=== PATIENT | male | born 1950 | race Caucasian/White ===

== ENCOUNTER 2019-04-08 10:00 | Outpatient (CLI) | payer MEDICARE, OTHER, BC, SELFPAY ==
[2019-04-08] MEDS: octreotide LAR depot 20 mg Kit 40 MG IM (15:04)
== END 2019-04-08 10:01 | disposition home or self-care (01) ==
LOC: ONCMED 10:10
PROVIDERS: Family Provider Family Medicine; PCP Family Medicine; Visit Provider Nurse Practitioner
DX: C7A.019 Malignant carcinoid tumor of the small intestine, unspecified portion (principal); C7B.02 Secondary carcinoid tumors of liver
CPT/HCPCS: 96372; J2353

== ENCOUNTER 2019-05-09 10:13 | Outpatient (CLI) | payer MEDICARE, OTHER, BC, SELFPAY ==
[2019-05-09] MEDS: octreotide LAR depot 20 mg Kit 40 MG IM (11:03)
--- NOTE | 2019-05-09 18:26 | ONC FU_ITS ---
Dr. Guido Patient Follow-Up Note Patient: Chilo Pacheco Unit #: [id number]: 1950 Dicatated By: Yifan Guido M.D.Date of Visit:May 09, 2019 Onc Med Follow-up/Prog Note Chief Complaint: Metastatic carcinoid. History of Present Illness: This is a 68 year-old man with metastatic carcinoid. According to the available records, he was admitted to the hospital in December 2008 with atrial fibrillation. At that time he was having abdominal pain and was found on CT scan to have multiple serosal and omental lesions. Ultrasound-guided biopsy was consistent with a carcinoid tumor. He subsequently underwent an exploratory laparotomy and debulking procedure. The primary tumor apparently was in the small intestine. The procedure included omentectomy, appendectomy, and cholecystectomy. According to the patient, metastatic lesions also were removed from the liver, kidney, and lung. He subsequently had chronic diarrhea, and he began treatment with monthly injections of Sandostatin LAR. His clinical course subsequent to his debulking surgery was complicated by an episode of bowel obstruction in 2011. This apparently was due to sigmoid diverticulitis and not to his malignancy. At that time he underwent sigmoid resection with colostomy placement, but the ostomy was later reversed. In 2012 he underwent radical prostatectomy for prostate cancer. I had seen him initially in May 2014. He continued on monthly injections of Sandostatin LAR. During follow-up, I also added short-acting octreotide injections to use as needed as well as tincture of opium to use as needed for the diarrhea. Beginning in August 2015 the Sandostatin LAR dosage was increased to 40 mg. His laboratory studies from 03/31/2016 showed evidence of iron deficiency with transferrin saturation 10% and serum ferritin 12 ng/mL. He was only borderline anemic, though. He was given parenteral iron replacement with a single infusion of Injectafer on 04/20/2016. In October 2016 he began a trial of therapy with telotristat for his carcinoid related diarrhea. It was initially put on hold, as he reported having some abdominal pain, but he was able to restart the medication with no recurrence of those symptoms. It has helped with the control of his diarrhea. On his follow-up visit in May 2017 his hemoglobin had dropped a little, to 12.4 g. His serum iron studies show transferrin saturation 7.5% and the ferritin level was low at 11.1 ng/mL, consistent with iron deficiency. He was given another course of parenteral iron replacement with infusions of Injectafer on 06/13/2017 and on 06/28/2017. Restaging CT of the chest, abdomen, and pelvis on 12/11/2017 showed stable postsurgical changes of right lower lobectomy with no suspicious pulmonary nodules noted. Postsurgical changes throughout the abdomen also appeared stable. There is no metastatic disease noted in the liver, and a left adrenal adenoma appeared stable. Multiple areas of dilatation and narrowing of the colon had a similar appearance to prior studies. Overall, there was no evidence of disease progression. He continued his monthly Sandostatin LAR. His other medical illnesses include hypertension, atrial fibrillation, GERD, obstructive sleep apnea, and depression. He also is known to have lumbar spinal canal stenosis, and he has been treated for gout. He underwent radical prostatectomy for prostate cancer in 2012. He had smoked in the past, but he quit almost 40 years ago. He has had just occasional alcohol use. INTERIM HISTORY: Restaging CT scans of the chest, abdomen, and pelvis on 04/03/2018 showed no evidence of metastatic disease in the chest and no metastatic disease or adenopathy in the abdomen/pelvis. There was just a slight change in the caliber of the colon at the sigmoid anastomotic suture site and possibly a slight increase in soft tissue near the anastomotic site. Overall, the findings appeared stable since April 2016. The dilated patulous appearance of the colon also appeared stable compared to multiple prior studies. There was unchanged left lateral abdominal wall omental herniation and unchanged left adrenal adenoma. He continued treatment with Sandostatin LAR. In April 2018 he was given another infusion of Injectafer, as his transferrin saturation and serum ferritin were both low, and he had become slightly anemic. He is seen for a scheduled visit. He says he has had a rough couple of weeks, as he has just not been feeling good generally. He has had upset stomach and he has felt lightheaded. He has had a tendency to stumble. His energy has not been good. He is doing some light work, though. His ECOG score is 1. His appetite has been OK. His weight has been stable. He has not had fever. He has episodes of feeling hot during the night, and he has sweating on his legs. His breathing has been OK. He does not complain of cough and he has not been having chest pain. His bowels generally have been better. He still sometimes has diarrhea. He has no significant joint or bone pain. He has tingling in his feet and toes. Medications: Allopurinol 1 (300 mg) Tablet Oral daily, AmLODIPine Besylate 1 Tablet (of 20 mg) Oral b.i.d., Aspirin EC 1 (81 mg) Tablet, enteric coated Oral daily, [facility] Omeprazole 1 (20 mg) Tablet, enteric coated Oral b.i.d., Gabapentin 1 (300 mg) Capsule Oral daily, Klor-Con M10 1 Tablet (of 10 meq) Tablet, controlled release Oral b.i.d., Magnesium Oxide 1 (400 mg) Capsule Oral daily, Niacin ER 1 (500 mg) Tablet, controlled release Oral daily, Opium Tincture (Paregoric) 1 dose(s) (of 2 mg/5mL) Tincture Oral 5x/d PRN, SandoSTATIN LAR [place] 1 (40 mg) Intramuscular q 4 weeks, Sertraline HCl 1 Tablet (of 50 mg) Oral b.i.d. Allergies: Ativan and Darvon. Review of Systems: Constitutional - He has not had a lot of energy lately. He does some light work at home. 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 His appetite has been OK and his weight is stable. No fever or chills. He has hot flashes and sweating of his neck and legs at night. ECOG score is 1, ENMT - No sinus congestion/drainage. No mouth sores. No sore throat. He sometimes has trouble swallowing his pills, Hematologic/Lymphatic - He bruises easily, Respiratory - No shortness of breath. No cough. No pleuritic pain or hemoptysis, Cardiovascular - No angina pain. No palpitations, Gastrointestinal - He sometimes feels queasy. His stomach tends to hurt after he eats. No heartburn or acid reflux. He has a couple loose bowels a day. No blood in the stool or black stools, Genitourinary (M) - No dysuria or hematuria. No urinary frequency. No urgency or incontinence, Musculoskeletal - No joint or bone pain, Integumentary - No skin complications, Neurologic - No headache. He has been light-headed the last couple of days. He has a lot of tingling in his toes and feet, Psychiatric - He has anxiety and depression. He has a couple family members that are very ill that he is concerned about. No insomnia. Vital Signs: Performed on May 09, 2019 10:28 Height - 72.00 in Weight - 211.8 lbs (HIGH) BSA - 2.18 sq.m BMI - 28.73 Temperature - 98.5 F Pulse - 56 /min (LOW) Respiration - 22 /min BP - 176/80 mm(hg) (HIGH) O2 Sat - 99 % Pain - 0 Physical Examination: Constitutional - He appears somewhat weak generally, Eyes - Sclerae nonicteric. Conjunctivae clear, ENMT - No lesions noted in the oral cavity, Hematologic/Lymphatic - No cervical, clavicular, or axillary adenopathy, Respiratory - Lungs sound clear with some decrease in air movement bilaterally, Cardiovascular - Heart rhythm is irregular. There is a II/ systolic murmur. There is no gallop or rub noted, Abdomen - Mildly distended but soft. Liver and spleen are not enlarged. There is no abdominal mass or ascites noted and there is no inguinal adenopathy, Extremities - No edema, Neurologic - No focal neurologic deficits noted. Lab/Imaging: Test performed on Apr 30, 2019 13:16 Glucose 150 mg/dL BUN 14 mg/dL Creatinine 1.28 mg/dL Cr Clearance (Est) 72.77 mL/min Sodium 143 mmol/L Potassium 3.2 mmol/L Chloride 116 mmol/L CO2 21.9 mmol/L Calcium 8.8 mg/dL Protein, Total 7.6 g/dL Albumin 3.9 g/dL Globulin 3.7 g/dL Bilirubin, Total .4 mg/dL Alkaline Phosphatase 175 IU/L AST (SGOT) 38 IU/L ALT (SGPT) 40 IU/L WBC 5.6 10^9/L RBC 4.04 10^12/L HGB 12.3 g/dL HCT 38.6 % MCV 95.5 fl MCH 30.4 pg MCHC 31.9 g/dL Platelet Count 190 10^9/L MPV 9.9 fL Neutrophils (Gran) 3.61 10^9/L Lymphocytes 1.48 10^9/L Monocytes .25 10^9/L Eosinophils .18 10^9/L Basophils .06 10^9/L Manual Lymphocytes 26.5 % Manual Monocytes 4.5 % Manual Eosinophils 3.2 % Manual Basophils 1.1 % PSA .33 ng/mL Test performed on Apr 26, 2019 12:05 U 5 HIAA 8.8 mg/L U 5 HIAA, 24hr 10 mg/24hr Impression: 1. Patient with metastatic carcinoid of small intestine origin. He has been on treatment with Sandostatin LAR following debulking surgery in 2008. Thus far during followup there has been no documented progression of the carcinoid. 2. He underwent sigmoid colon resection for sigmoid diverticulitis with associated bowel obstruction in 2011. He has had chronic diarrhea, though it is uncertain to what extent it may be due to the carcinoid versus after effects of his surgeries. 3. He has had ongoing problems with the diarrhea. He does get benefit with the short acting octreotide injections and he also has symptomatic benefit with the tincture of opium. 4. He was found to have iron deficiency anemia. It was felt to most likely be due to inadequate iron absorption, as in the past he had not been able to correct it with oral iron. 5. He underwent radical prostatectomy for prostate cancer in 2012. He now has evidence of biochemical recurrence. His other medical illnesses include: 6. Hypertension. 7. Atrial fibrillation. 8. GERD. 9. Obstructive sleep apnea. 10. Degenerative disease of the spine with lumbar spinal canal stenosis. 11. History of gout. 12. Depression. He completed parenteral iron replacement with an infusion of Injectafer on 04/20/2016. He tolerated it well. In October 2016 he began a trial therapy with telotristat for the carcinoid associated diarrhea. He had been getting some clinical benefit with it, but he ultimately stopped taking it because of abdominal pain. His repeat laboratory studies in May 2017 were again consistent with iron deficiency. He completed additional parenteral iron replacement with 2 infusions of Injectafer. He had a good response, and he then continued his monthly Sandostatin injections. As of his follow-up visit in April 2018 his overall clinical status had remained stable, and follow-up laboratory studies and CT scans had shown no obvious recurrence/progression of the carcinoid. At that point he required an additional infusion of Injectafer, and he was given Injectafer again in November 2018. During follow-up he was found to have biochemical recurrence of the prostate cancer. He has continued treatment with Sandostatin LAR. He is continued to have some fatigue and he intermittently has diarrhea. Recently he has also had upset stomach and lightheadedness, and he just has not been feeling good generally. He also has been having more depression. His alkaline phosphatase is now mildly elevated, and that is new. There has been continued gradual increase in his PSA level, now to 0.33 ng/mL. Plan: He will continue treatment with Sandostatin LAR 40 mg by intramuscular injection monthly. With his injection next month I will check some additional laboratory studies for his anemia. In the meantime, I also will schedule repeat CT abdomen/pelvis and I will have him try increasing his sertraline dosage to 100 mg daily. Signed By: Yifan Guido M.D. <<Signature on File>>
== END 2019-05-09 10:14 | disposition home or self-care (01) ==
LOC: ONCMED 10:19
PROVIDERS: Family Provider Family Medicine; PCP Family Medicine; Visit Provider Internal Medicine Medical Oncology
DX: C7A.019 Malignant carcinoid tumor of the small intestine, unspecified portion (principal); C7B.02 Secondary carcinoid tumors of liver; C7B.04 Secondary carcinoid tumors of peritoneum; C61 Malignant neoplasm of prostate; D50.9 Iron deficiency anemia, unspecified; I10 Essential (primary) hypertension; I48.91 Unspecified atrial fibrillation; K21.9 Gastro-esophageal reflux disease without esophagitis; G47.33 Obstructive sleep apnea (adult) (pediatric); F32.9 Major depressive disorder, single episode, unspecified; M48.061 Spinal stenosis, lumbar region without neurogenic claudication; Z79.899 Other long term (current) drug therapy; Z79.82 Long term (current) use of aspirin; Z87.891 Personal history of nicotine dependence; Z90.79 Acquired absence of other genital organ(s); Z90.2 Acquired absence of lung [part of]
CPT/HCPCS: 96372; 99214; J2353

== ENCOUNTER 2019-05-15 12:40 | Outpatient (CLI) | payer MEDICARE, OTHER, BC, SELFPAY ==
--- NOTE | 2019-05-15 12:52 | CT_ITS ---
WS: [id number] CT ABDOMEN PELVIS TECHNIQUE: Contrast-enhanced CT of the abdomen and pelvis with coronal and sagittal reformatted image s. CLINICAL INFORMATION: CARCINOID COMPARISON: CT 1 15,019 and 9 24,018 DLP: 1155.[address] scans at [facility] use at least one of these dose optimization techniques: automat ed exposure control; mA and/or kV adjustment per patient size (includes targeted exams where dose is matched to clinical indication); or iterative reconstruction. FINDINGS: Prior postoperative changes right lower lobectomy with stable postoperative changes. Pleural thickeni ng and parenchymal fibrosis right lower lobe appears stable. Small hiatal hernia. Prior cholecystectomy. Stable subcentimeter low-attenuation lesion left hepatic lobe unchanged. No in trahepatic biliary duct dilatation. Portal vein and splenic vein are normal. Stable calcification marcin ng the inferior right hepatic lobe. Radius and spleen are normal. Right adrenal gland is normal. Left adrenal nodule measuring 3.6 cm unc hanged likely representing adenoma. Mild aortic calcification. No aneurysm. No adenopathy in the abdo men or pelvis. Left lateral abdominal wall hernia with herniated fat. No herniated bowel. This is unchanged in [facility]. Hernia mouth measures 3.0CM. Prior postoperative changes distal sigmoid with mild soft tissue thickening at the anastomotic site which is unchanged. Additional surgical sutures ascending colon. N o pelvic lymphadenopathy. Patulous appearance to the colon is unchanged. 10 mm mesenteric nodule near the surgical clips in the left midabdomen unchanged since 2015 Moderate spondylitic changes lumbar spine. Laminectomy defects lower lumbar spine. CT/CT abdomen pelvis w con* [id number] IMPRESSION: 1. No evidence of progressed metastatic disease in the abdomen or pelvis. 2. Stable postoperative changes distal sigmoid colon with soft tissue thickeni ng near the anastomotic site unchanged. 3. Prior postoperative changes right lower lobectomy with stable postoperative sequelae. 4. Unchanged left adrenal adenoma. 5. Left lateral abdominal wall hernia containing omental fat is stable. No her niated bowel. 6. 10 mm mesenteric nodule near the surgical clips left midabdomen unchanged s tita 2015
[2019-05-15 14:01] LABS: Blood Urea Nitrogen 14 mg/dL (8-23); Glomerular Filtration Rate 54.6 mL/min (90-130)
[2019-05-15] MEDS: iohexol 300 mg/mL 50 mL Btl PO (14:04)
[2019-05-15] MEDS: iodixanol 320 mg/mL 100mL Btl IV (14:12)
== END 2019-05-15 12:41 | disposition home or self-care (01) ==
LOC: RADWPI 12:46
PROVIDERS: Family Provider Family Medicine; PCP Family Medicine; Visit Provider Internal Medicine Medical Oncology
DX: D3A.00 Benign carcinoid tumor of unspecified site (principal); D35.02 Benign neoplasm of left adrenal gland; K43.9 Ventral hernia without obstruction or gangrene
CPT/HCPCS: 74177; 82565; 84520; Q9967

== ENCOUNTER 2019-06-10 10:42 | Outpatient (CLI) | payer MEDICARE, OTHER, BC, SELFPAY ==
[2019-06-10] MEDS: octreotide LAR depot 20 mg Kit 40 MG IM (11:04)
[2019-06-10 11:40] LABS: Basophils % 0.7 %; Eosinophils # 0.2 10^3/uL (0.0-0.8); Eosinophils % 3.8 %; Hematocrit 34.7 % (42.0-52.0); Hemoglobin 10.9 g/dL (11.7-16.6); Lymphocytes # 1.5 10^3/uL (0.8-4.8); Lymphocytes % 25.9 %; Mean Corpuscular HGB Conc 31.4 g/dL (30.0-36.0); Mean Corpuscular Hemoglobin 30.4 pg (28.0-34.0); Mean Corpuscular Volume 96.7 fL (80-94); Mean Platelet Volume 10.7 fL (7.4-10.4); Monocytes # 0.4 10^3/uL (0.2-0.9); Monocytes % 6.8 %; Neutrophils # 3.7 10^3/uL (1.8-7.7); Neutrophils % 62.6 %; Nucleated Red Blood Cells % 0 %; Platelet Count 157 10^3/cmm (130-400); Red Blood Count 3.59 10^6/uL (4.1-5.3); White Blood Count 5.8 10^3/uL (4.0-10.0)
[2019-06-10 11:56] LABS: Homocysteine 18.27
[2019-06-10 12:12] LABS: Alanine Aminotransferase 27 U/L (0-41); Albumin Level 4.2 g/dL (3.5-5.2); Alkaline Phosphatase 145 IU/L (40-130); Anion Gap 13.3 (5-19); Aspartate Amino Transferase 40 U/L (0-40); Blood Urea Nitrogen 10 mg/dL (8-23); Calcium 9.2 mg/dL (8.5-10.5); Carbon Dioxide 22 mmol/L (22-29); Chloride 109 mmol/L (98-107); Ferritin 32 ng/mL (30-400); Globulin 2.9 g/dL (1.3-4.6); Glucose 131 mg/dL (65-115); Iron 77 ug/dL (59-158); Osmolality Calculated 290 mOsm/kg (285-295); Percent Saturation 27.6 % (20-50); Potassium 3.3 mmol/L (3.5-5.1); Sodium 141 mmol/L (136-145); Thyroid Stimulating Hormone 3.01 uIU/mL (0.27-4.20); Total Bilirubin 0.3 mg/dL (0.15-1.2); Total Iron Binding Capacity 278 mcg/dl; Total Protein 7.1 g/dL (6.6-8.7); Unsaturated Iron Binding 201 ug/dL (112-347); Vitamin B12 286 pg/mL (232-1245)
[2019-06-10 12:30] LABS: Folate Level 12.8 ng/mL (4.5-32.2)
== END 2019-06-10 10:43 | disposition home or self-care (01) ==
PROVIDERS: Family Provider Family Medicine; PCP Family Medicine; Visit Provider Internal Medicine Medical Oncology
DX: C7A.019 Malignant carcinoid tumor of the small intestine, unspecified portion (principal); C7B.02 Secondary carcinoid tumors of liver; C61 Malignant neoplasm of prostate; D64.9 Anemia, unspecified; R53.83 Other fatigue
CPT/HCPCS: 80053; 82607; 82728; 82746; 83090; 83540; 83550; 83921; 84443; 85025; 96372; J2353

== ENCOUNTER 2019-07-11 10:42 | Outpatient (CLI) | payer MEDICARE, OTHER, BC, SELFPAY ==
[2019-07-11] MEDS: octreotide LAR depot 20 mg Kit 40 MG IM (11:00)
[2019-07-11 11:20] LABS: Basophils # 0.1 10^3/uL (0.0-0.1); Basophils % 0.8 %; Eosinophils # 0.2 10^3/uL (0.0-0.8); Hematocrit 37.4 % (42.0-52.0); Hemoglobin 11.9 g/dL (11.7-16.6); Lymphocytes # 1.9 10^3/uL (0.8-4.8); Lymphocytes % 29.9 %; Mean Corpuscular HGB Conc 31.8 g/dL (30.0-36.0); Mean Corpuscular Hemoglobin 30.3 pg (28.0-34.0); Mean Corpuscular Volume 95.2 fL (80-94); Mean Platelet Volume 10.5 fL (7.4-10.4); Monocytes # 0.5 10^3/uL (0.2-0.9); Monocytes % 7.6 %; Neutrophils # 3.7 10^3/uL (1.8-7.7); Neutrophils % 58.4 %; Nucleated Red Blood Cells % 0 %; Platelet Count 181 10^3/cmm (130-400); Red Blood Count 3.93 10^6/uL (4.1-5.3); Red Cell Distribution Width 14.6 % (12.1-15.1); White Blood Count 6.3 10^3/uL (4.0-10.0)
[2019-07-11 11:36] LABS: Alanine Aminotransferase 32 U/L (0-41); Albumin Level 4.5 g/dL (3.5-5.2); Alkaline Phosphatase 169 IU/L (40-130); Anion Gap 18.5 (5-19); Aspartate Amino Transferase 46 U/L (0-40); Blood Urea Nitrogen 12 mg/dL (8-23); Calcium 9.5 mg/dL (8.5-10.5); Carbon Dioxide 22 mmol/L (22-29); Chloride 104 mmol/L (98-107); Ferritin 26 ng/mL (30-400); Globulin 3.2 g/dL (1.3-4.6); Glucose 117 mg/dL (65-115); Iron 47 ug/dL (59-158); Osmolality Calculated 289 mOsm/kg (285-295); Percent Saturation 14.9 % (20-50); Potassium 3.5 mmol/L (3.5-5.1); Sodium 141 mmol/L (136-145); Total Bilirubin 0.3 mg/dL (0.15-1.2); Total Iron Binding Capacity 314 mcg/dl; Total Protein 7.7 g/dL (6.6-8.7); Unsaturated Iron Binding 267 ug/dL (112-347)
== END 2019-07-11 10:43 | disposition home or self-care (01) ==
PROVIDERS: Family Provider Family Medicine; PCP Family Medicine; Visit Provider Internal Medicine Medical Oncology
DX: C7A.019 Malignant carcinoid tumor of the small intestine, unspecified portion (principal); C61 Malignant neoplasm of prostate; C7B.02 Secondary carcinoid tumors of liver; C7B.04 Secondary carcinoid tumors of peritoneum; C7B.09 Secondary carcinoid tumors of other sites; D50.9 Iron deficiency anemia, unspecified
CPT/HCPCS: 36415; 80053; 82728; 83540; 83550; 85025; 96365; 96372; J1439; J2353

== ENCOUNTER 2019-07-18 12:45 | Outpatient (CLI) | payer MEDICARE, OTHER, BC, SELFPAY ==
[2019-07-18] MEDS: ferric carboxy (IVPB) 750 MG in sodium chloride 0.9% (100 ml) 100 ML 460 MG IV (13:15)
== END 2019-07-18 12:46 | disposition home or self-care (01) ==
LOC: ONCMED 12:45
PROVIDERS: Family Provider Family Medicine; PCP Family Medicine; Visit Provider Internal Medicine Medical Oncology
DX: Z51.11 Encounter for antineoplastic chemotherapy (principal); C61 Malignant neoplasm of prostate; C7B.02 Secondary carcinoid tumors of liver; C7B.04 Secondary carcinoid tumors of peritoneum; C7A.019 Malignant carcinoid tumor of the small intestine, unspecified portion; D50.9 Iron deficiency anemia, unspecified
CPT/HCPCS: 96365; J1439

== ENCOUNTER 2019-08-13 10:34 | Outpatient (CLI) | payer MEDICARE, OTHER, BC, SELFPAY ==
[2019-08-13] MEDS: octreotide LAR depot 20 mg Kit 40 MG IM (11:30)
--- NOTE | 2019-08-17 10:22 | ONC FU_ITS ---
Dr. Guido Patient Follow-Up Note Patient: Chilo Pacheco Unit #: [id number]: 1950 Dicatated By: Yifan Guido M.D.Date of Visit:August 13, 2019 Onc Med Follow-up/Prog Note Chief Complaint: Metastatic carcinoid. History of Present Illness: This is a 69 year-old man with metastatic carcinoid. According to the available records, he was admitted to the hospital in December 2008 with atrial fibrillation. At that time he was having abdominal pain and was found on CT scan to have multiple serosal and omental lesions. Ultrasound-guided biopsy was consistent with a carcinoid tumor. He subsequently underwent an exploratory laparotomy and debulking procedure. The primary tumor apparently was in the small intestine. The procedure included omentectomy, appendectomy, and cholecystectomy. According to the patient, metastatic lesions also were removed from the liver, kidney, and lung. He subsequently had chronic diarrhea, and he began treatment with monthly injections of Sandostatin LAR. His clinical course subsequent to his debulking surgery was complicated by an episode of bowel obstruction in 2011. This apparently was due to sigmoid diverticulitis and not to his malignancy. At that time he underwent sigmoid resection with colostomy placement, but the ostomy was later reversed. In 2012 he underwent radical prostatectomy for prostate cancer. I had seen him initially in May 2014. He continued on monthly injections of Sandostatin LAR. During follow-up, I also added short-acting octreotide injections to use as needed as well as tincture of opium to use as needed for the diarrhea. Beginning in August 2015 the Sandostatin LAR dosage was increased to 40 mg. His laboratory studies from 03/31/2016 showed evidence of iron deficiency with transferrin saturation 10% and serum ferritin 12 ng/mL. He was only borderline anemic, though. He was given parenteral iron replacement with a single infusion of Injectafer on 04/20/2016. In October 2016 he began a trial of therapy with telotristat for his carcinoid related diarrhea. It was initially put on hold, as he reported having some abdominal pain, but he was able to restart the medication with no recurrence of those symptoms. It has helped with the control of his diarrhea. On his follow-up visit in May 2017 his hemoglobin had dropped a little, to 12.4 g. His serum iron studies show transferrin saturation 7.5% and the ferritin level was low at 11.1 ng/mL, consistent with iron deficiency. He was given another course of parenteral iron replacement with infusions of Injectafer on 06/13/2017 and on 06/28/2017. Restaging CT of the chest, abdomen, and pelvis on 12/11/2017 showed stable postsurgical changes of right lower lobectomy with no suspicious pulmonary nodules noted. Postsurgical changes throughout the abdomen also appeared stable. There is no metastatic disease noted in the liver, and a left adrenal adenoma appeared stable. Multiple areas of dilatation and narrowing of the colon had a similar appearance to prior studies. Overall, there was no evidence of disease progression. He continued his monthly Sandostatin LAR. His other medical illnesses include hypertension, atrial fibrillation, GERD, obstructive sleep apnea, and depression. He also is known to have lumbar spinal canal stenosis, and he has been treated for gout. He underwent radical prostatectomy for prostate cancer in 2012. He had smoked in the past, but he quit almost 40 years ago. He has had just occasional alcohol use. INTERIM HISTORY: Restaging CT scans of the chest, abdomen, and pelvis on 04/03/2018 showed no evidence of metastatic disease in the chest and no metastatic disease or adenopathy in the abdomen/pelvis. There was just a slight change in the caliber of the colon at the sigmoid anastomotic suture site and possibly a slight increase in soft tissue near the anastomotic site. Overall, the findings appeared stable since April 2016. The dilated patulous appearance of the colon also appeared stable compared to multiple prior studies. There was unchanged left lateral abdominal wall omental herniation and unchanged left adrenal adenoma. He continued treatment with Sandostatin LAR. In April 2018 he was given another infusion of Injectafer, as his transferrin saturation and serum ferritin were both low, and he had become slightly anemic. He was given further parenteral iron replacement in October 2018 with his hemoglobin borderline low at 12.6 g and his ferritin low at 23 ng/mL. He is seen for a scheduled visit. He has not been feeling good generally. He says he feels worn out and weak and he is disgusted that he cannot do nothing. He sometimes feels so weak that he cannot pick his feet up. His ECOG score is 2. He still has good appetite. He has no fever, night sweats, or flushing episodes. His breathing has been rough, and has been getting short of breath very easily. He does not complain of cough. He is not having chest pain, but he does complain that his chest feels weak. He sometimes has nausea. He has been having abdominal cramping and a lot of diarrhea. He has been trying to get off the tincture of opium, and he has been taking it just once a day or not at all. He has no complaints. He says his joints ache all the time. He also has been having muscle cramps quite often. He has a little headache. He is having some orthostatic dysequilibrium. He says his toes sting and burn at night. He is having more difficulty getting to sleep. Medications: Allopurinol 1 (300 mg) Tablet Oral daily, AmLODIPine Besylate 1 Tablet (of 20 mg) Oral b.i.d., Aspirin EC 1 (81 mg) Tablet, enteric coated Oral daily, [facility] Omeprazole 1 (20 mg) Tablet, enteric coated Oral b.i.d., Gabapentin 1 (300 mg) Capsule Oral daily, Klor-Con M10 1 Tablet (of 10 meq) Tablet, controlled release Oral b.i.d., Loperamide-Simethicone Tablet Oral, Magnesium Oxide 1 (400 mg) Capsule Oral daily, Niacin ER 1 (500 mg) Tablet, controlled release Oral daily, Opium Tincture (Paregoric) 1 dose(s) (of 2 mg/5mL) Tincture Oral 5x/d PRN, SandoSTATIN LAR [place] 1 (40 mg) Intramuscular q 4 weeks, Sertraline HCl 1 Tablet (of 50 mg) Oral b.i.d. Allergies: Ativan and Darvon. Review of Systems: Constitutional - He has not been feeling good. He says he has just a little bit of energy in the morning and not much of any in the afternoon. He has very limited activity. He still has good appetite. He does not have fever, night sweats, or flushing spells. ECOG score is 2, ENMT - No sinus congestion/drainage. No mouth sores. No sore throat or difficulty swallowing, Hematologic/Lymphatic - He bruises easily, Respiratory - His breathing lately has been rough. He gets short of breath very easily. No cough. No pleuritic pain or hemoptysis, Cardiovascular - No angina pain, but his chest feels weak.. No palpitations, Gastrointestinal - He sometimes has nausea. No heartburn or acid reflux. He has been having abdominal cramping he has been having a lot of diarrhea. He has been trying to get off the tincture of opium, and he has not been using it more than once a day. No blood in the stool or black stools, Genitourinary (M) - No dysuria or hematuria. No urinary frequency. No urgency or incontinence, Musculoskeletal - His joints ache all the time. He also reports having cramps quite often, Integumentary - No skin complications, Neurologic - He has a little headache. He has some orthostatic dysequilibrium. He has stinging and burning in his toes at night, Psychiatric - He is having some anxiety and depression. He finds that it is harder for him to get to sleep. Vital Signs: Performed on August 13, 2019 10:46 Height - 72.00 in Weight - 216.4 lbs (HIGH) BSA - 2.20 sq.m BMI - 29.35 Temperature - 97.9 F (LOW) Pulse - 82 /min Respiration - 22 /min BP - 150/81 mm(hg) (HIGH) O2 Sat - 98 % Pain - 0 Physical Examination: Constitutional - He appears somewhat weak generally, but not acutely ill, Eyes - Sclerae nonicteric. Conjunctivae clear, ENMT - No lesions noted in the oral cavity, Hematologic/Lymphatic - No cervical, clavicular, or axillary adenopathy, Respiratory - Lungs sound clear with some decrease in air movement bilaterally, Cardiovascular - Heart rhythm is irregular. There is a II/ systolic murmur. There is no gallop or rub noted, Abdomen - Moderatelly distended but soft. Liver and spleen are not enlarged. There is no abdominal mass or ascites noted and there is no inguinal adenopathy, Extremities - No edema, Integumentary - There is a mild area the skin eruption on the lower legs, Neurologic - No focal neurologic deficits noted. Lab/Imaging: Test performed on August 05, 2019 12:04 Serotonin 127 ng/mL U 5 HIAA 7.6 mg/L U 5 HIAA, 24hr 11 mg/24hr Chromogranin A 291 ng/mL Test performed on July 31, 2019 11:32 Glucose 93 mg/dL BUN 10 mg/dL Creatinine 1.10 mg/dL Cr Clearance (Est) 83.70 mL/min Sodium 143 mmol/L Potassium 3.2 mmol/L Chloride 115 mmol/L CO2 20.5 mmol/L Calcium 8.1 mg/dL Protein, Total 7.6 g/dL Albumin 4.0 g/dL Bilirubin, Total 0.5 mg/dL Alkaline Phosphatase 181 IU/L AST (SGOT) 45 IU/L ALT (SGPT) 41 IU/L WBC 7.0 10^9/L RBC 4.17 10^12/L HGB 12.7 g/dL HCT 39.7 % MCV 95.2 fl MCH 30.5 pg MCHC 32.0 g/dL Platelet Count 227 10^9/L MPV 10.2 fL Neutrophils (Gran) 4.92 10^9/L Lymphocytes 1.40 10^9/L Monocytes 0.48 10^9/L Eosinophils 0.12 10^9/L Basophils 0.04 10^9/L Manual Lymphocytes 20.1 % Manual Monocytes 6.9 % Manual Eosinophils 1.7 % Manual Basophils 0.6 % PSA .49 ng/mL Impression: 1. Patient with metastatic carcinoid of small intestine origin. He has been on treatment with Sandostatin LAR following debulking surgery in 2008. Thus far during followup there has been no documented progression of the carcinoid. 2. He underwent sigmoid colon resection for sigmoid diverticulitis with associated bowel obstruction in 2011. He has had chronic diarrhea, though it is uncertain to what extent it may be due to the carcinoid versus after effects of his surgeries. 3. He has had ongoing problems with the diarrhea. He does get benefit with the short acting octreotide injections and he also has symptomatic benefit with the tincture of opium. 4. He was found to have iron deficiency anemia. It was felt to most likely be due to inadequate iron absorption, as in the past he had not been able to correct it with oral iron. 5. He underwent radical prostatectomy for prostate cancer in 2012. He now has evidence of biochemical recurrence. His other medical illnesses include: 6. Hypertension. 7. Atrial fibrillation. 8. GERD. 9. Obstructive sleep apnea. 10. Degenerative disease of the spine with lumbar spinal canal stenosis. 11. History of gout. 12. Depression. He completed parenteral iron replacement with an infusion of Injectafer on 04/20/2016. He tolerated it well. In October 2016 he began a trial therapy with telotristat for the carcinoid associated diarrhea. He had been getting some clinical benefit with it, but he ultimately stopped taking it because of abdominal pain. His repeat laboratory studies in May 2017 were again consistent with iron deficiency. He completed additional parenteral iron replacement with 2 infusions of Injectafer. He had a good response, and he then continued his monthly Sandostatin injections. As of his follow-up visit in April 2018 his overall clinical status had remained stable, and follow-up laboratory studies and CT scans had shown no obvious recurrence/progression of the carcinoid. At that point he required an additional infusion of Injectafer, and he was given Injectafer again in November 2018. During follow-up he was found to have biochemical recurrence of the prostate cancer. He has continued treatment with Sandostatin LAR for the carcinoid. Over the past several months he has had progressive decline in his energy and activity tolerance. He is having more shortness of breath, and he also reports having weakness in his chest. Lately he has also been having more abdominal cramping and diarrhea. Plan: He will continue treatment with Sandostatin LAR 40 mg by intramuscular injection monthly. I will check additional laboratory studies today. He will be scheduled for restaging CT scans of the chest, abdomen, and pelvis and he also will be scheduled for an echocardiogram. He will have further evaluation as indicated. In the meantime, he will increase his potassium supplement to 20 mEq twice daily I also will have him increase gabapentin to 300 mg twice daily. Signed By: Yifan Guido M.D. <<Signature on File>>
== END 2019-08-13 10:35 | disposition home or self-care (01) ==
LOC: ONCMED 10:39
PROVIDERS: PCP Family Medicine; Visit Provider Internal Medicine Medical Oncology
DX: C7A.019 Malignant carcinoid tumor of the small intestine, unspecified portion (principal); C7B.04 Secondary carcinoid tumors of peritoneum; C61 Malignant neoplasm of prostate; D50.9 Iron deficiency anemia, unspecified; I10 Essential (primary) hypertension; I48.91 Unspecified atrial fibrillation; K21.9 Gastro-esophageal reflux disease without esophagitis; G47.33 Obstructive sleep apnea (adult) (pediatric); M48.061 Spinal stenosis, lumbar region without neurogenic claudication; F32.9 Major depressive disorder, single episode, unspecified; Z79.899 Other long term (current) drug therapy; Z79.82 Long term (current) use of aspirin; Z87.891 Personal history of nicotine dependence; Z90.79 Acquired absence of other genital organ(s); Z90.2 Acquired absence of lung [part of]
CPT/HCPCS: 96372; 99214; J2353

== ENCOUNTER 2019-08-14 12:18 | Outpatient (CLI) | payer MEDICARE, OTHER, BC, SELFPAY ==
--- NOTE | 2019-08-14 12:42 | CT_ITS ---
WS: [id number] CT CHEST, ABDOMEN AND PELVIS WITH CONTRAST. HISTORY: Malignant NEOPLASM OF PROSTATE TECHNIQUE: Contiguous 5 mm axial imaging performed through the chest, abdomen and pelvis with IV cont rast, oral contrast has been provided. Coronal and sagittal reformats chest. Coronal and sagittal ref ormats through the abdomen and pelvis. All CT scans at [facility] use at least one of the se dose optimization techniques: automated exposure control; mA and/or kV adjustment per patient size (includes targeted exams where dose is matched to clinical indication); or iterative reconstruction. CONTRAST: Omnipaque 300; 95 mL IV. DLP: 2238.16 mGy.cm COMPARISON: 05/15/2019 and 04/03/[address]: Partial RIGHT lower lobectomy. Postoperative clips and pleural thickening at the RIGHT lung base. LEFT lung is clear. There is a small nodule adjacent to the inferior fissure which is stable. Heart size is normal. There is a new pericardial effusion measuring 10 mm anteriorly. No mediastinal or hilar adenopathy. Small hiatal hernia. Abdomen CT: Mild hepatic steatosis. Calcifications associated with the inferior RIGHT lobe the liver. No metastatic disease to the liver. There are a few scattered hypodensities within the liver which a re present on prior studies. No bile duct dilatation. Prior cholecystectomy. Spleen and pancreas are negative. RIGHT adrenal gland is normal. Well-circumscribed 2.7 cm mass in the LEFT adrenal gland wit h long-term stability. Scattered hypodensities within each kidney with no solid mass or obstruction. Mild atherosclerosis aorta. Postsurgical changes along the anterior abdominal wall. No retroperitonea l adenopathy. Progressive soft tissue thickening involving the ascending colon and the transverse colon. There is t humbprinting and mucosal thickening. The rectosigmoid anastomosis appears to be intact with no recurr ent soft tissue mass. Pelvic CT: No free fluid. No pelvic adenopathy. Bones are osteopenic. Degenerative changes throughout the thoracic and lumbar spines. CT/CT chest abd pel w con* IMPRESSION: 1. Progression of mucosal thickening involving the ascending and transverse co bianka. Postinflammatory or infectious process or neoplastic process should be con sidered. Colonoscopy may be necessary. 2. Anastomosis at the rectosigmoid junction is intact with no recurrent mass. 3. New very small pericardial effusion. 4. Prior RIGHT lower lobectomy with postsurgical changes which are stable. 5. Stable RIGHT adrenal gland.
--- NOTE | 2019-08-14 12:43 | USCV_ITS ---
Chilo Pacheco Age: 69 Gender: M : 1950 Exam Date: 08/14/2019 13:58 Ordering Phys: Yifan Guido MD Technologist: To Botello Exam Location: [facility] – [place] Indication: MURMUR BP: 154 / 80 HR: 68 Rhythm: AFIB Technical Quality: Fair MEASUREMENTS (Male / Female) Normal Values 2D ECHO LV Diastolic Diameter PLAX 4.0 cm 4.2 - 5.9 / 3.9 - 5.3 cm LV Systolic Diameter PLAX 2.5 cm IVS Diastolic Thickness 1.1 cm 0.6 - 1.0 / 0.6 - 0.9 cm IVS Systolic Thickness 1.1 cm LVPW Diastolic Thickness 1.4 cm 0.6 - 1.0 / 0.6 - 0.9 cm LVPW Systolic Thickness 1.3 cm LVOT Diameter 2.5 cm LV Ejection Fraction 2D Teich 67.8 % LV Ejection Fraction MOD 2C 62.4 % LV Ejection Fraction 2C AL 62.9 % LA Diameter 5.0 cm LA Width 4.2 cm LA Height 5.8 cm RA Width 4.1 cm RA Height 4.5 cm Aorta at Sinotubular Diameter 3.1 cm M-MODE LV Diastolic Diameter MM 8.1 cm 4.2 - 5.9 / 3.9 - 5.3 cm LV Systolic Diameter MM 5.1 cm LV Ejection Fraction MM Teich 65.0 % IVS Diastolic Thickness MM 1.0 cm 0.6 - 1.0 / 0.6 - 0.9 cm IVS Systolic Thickness MM 2.0 cm LVPW Diastolic Thickness MM 1.2 cm 0.6 - 1.0 / 0.6 - 0.9 cm LVPW Systolic Thickness MM 2.4 cm RV Diastolic Diameter MM 1.8 cm Aortic Annulus Diameter 3.9 cm LA Ao Ratio MM 1.3 MV E Point Septal Separation 0.6 cm DOPPLER AV Peak Velocity 143.0 cm/s LVOT Peak Velocity 91.0 cm/s AV Area Cont Eq vti 4.8 cm squared AV Area Cont Eq pk 3.2 cm squared MV Area PHT 5.0 cm squared Mitral E to A Ratio 2.9 MV E' Velocity 6.0 cm/s Mitral E to MV E' Ratio 15.9 Mitral E to LV E' Lateral Ratio 15.4 Mitral E to LV E' Septal Ratio 16.4 TR Peak Velocity 241.0 cm/s TR Peak Gradient 23.3 mmHg TV Peak E Velocity 71.0 cm/s Right Atrial Pressure 3.0 mmHg Pulmonary Artery Systolic Pressu 26.2 mmHg FINDINGS Left Ventricle Normal left ventricular size, systolic function and wall thickness, with no regional wall motion abnormalities. Rhythm precludes evaluation of diastolic function. Left ventricular ejection fraction is estimated at 60 %. Right Ventricle Normal right ventricular size and systolic function. Normal right ventricular systolic pressure. Right Atrium Mildly increased right atrial size. Left Atrium Mildly increased left atrial size. Mitral Valve Structurally normal mitral valve. Trace mitral valve regurgitation. Aortic Valve Structurally normal trileaflet aortic valve. No aortic valve stenosis. [id number] aortic valve regurgitation. Tricuspid Valve Structurally normal tricuspid valve. Trace tricuspid valve regurgitation. Pulmonic Valve Pulmonic valve not well visualized. Pericardium Normal pericardium without effusion. Aorta Normal ascending aorta dimension. CONCLUSIONS Normal left ventricular size, systolic function and wall thickness, with no regional wall motion abnormalities. Rhythm precludes evaluation of diastolic function. Left ventricular ejection fraction is estimated at 60 %. Mildly increased right atrial size. Mildly increased left atrial size. Structurally normal mitral valve. Trace mitral valve regurgitation. Structurally normal trileaflet aortic valve. No aortic valve stenosis. [id number] aortic valve regurgitation. There are no prior echocardiogram studies to compare. Dr. Florian Chaidez MD (Electronically Signed) Final Date: 14 Aug 2019 18:05 S
[2019-08-14] MEDS: iohexol 300 mg/mL 50 mL Btl PO (12:50)
[2019-08-14 13:44] LABS: Magnesium 1.6 mg/dL (1.7-2.3); Thyroid Stimulating Hormone 1.47 uIU/mL (0.27-4.20); Vitamin B12 260 pg/mL (232-1245)
[2019-08-14] MEDS: iohexol 300 mg/mL 100 mL Btl IV (14:36)
== END 2019-08-14 12:19 | disposition home or self-care (01) ==
LOC: RAD 12:27
PROVIDERS: PCP Family Medicine; Visit Provider Internal Medicine Medical Oncology
DX: I51.7 Cardiomegaly (principal); I48.91 Unspecified atrial fibrillation; I35.1 Nonrheumatic aortic (valve) insufficiency; K63.89 Other specified diseases of intestine; J90 Pleural effusion, not elsewhere classified
CPT/HCPCS: 36415; 71260; 74177; 82607; 83735; 84443; 93306

== ENCOUNTER 2019-09-16 09:40 | Outpatient (CLI) | payer MEDICARE, OTHER, BC, SELFPAY ==
[2019-09-16] MEDS: octreotide LAR depot 20 mg Kit 40 MG IM (10:49)
--- NOTE | 2019-09-16 19:10 | ONC FU_ITS ---
Dr. Guido Patient Follow-Up Note Patient: Chilo Pacheco Unit #: [id number]: 1950 Dicatated By: Yifan Guido M.D.Date of Visit:Sep 16, 2019 Onc Med Follow-up/Prog Note Chief Complaint: Metastatic carcinoid. History of Present Illness: This is a 69 year-old man with metastatic carcinoid. According to the available records, he was admitted to the hospital in December 2008 with atrial fibrillation. At that time he was having abdominal pain and was found on CT scan to have multiple serosal and omental lesions. Ultrasound-guided biopsy was consistent with a carcinoid tumor. He subsequently underwent an exploratory laparotomy and debulking procedure. The primary tumor apparently was in the small intestine. The procedure included omentectomy, appendectomy, and cholecystectomy. According to the patient, metastatic lesions also were removed from the liver, kidney, and lung. He subsequently had chronic diarrhea, and he began treatment with monthly injections of Sandostatin LAR. His clinical course subsequent to his debulking surgery was complicated by an episode of bowel obstruction in 2011. This apparently was due to sigmoid diverticulitis and not to his malignancy. At that time he underwent sigmoid resection with colostomy placement, but the ostomy was later reversed. In 2012 he underwent radical prostatectomy for prostate cancer. I had seen him initially in May 2014. He continued on monthly injections of Sandostatin LAR. During follow-up, I also added short-acting octreotide injections to use as needed as well as tincture of opium to use as needed for the diarrhea. Beginning in August 2015 the Sandostatin LAR dosage was increased to 40 mg. His laboratory studies from 03/31/2016 showed evidence of iron deficiency with transferrin saturation 10% and serum ferritin 12 ng/mL. He was only borderline anemic, though. He was given parenteral iron replacement with a single infusion of Injectafer on 04/20/2016. In October 2016 he began a trial of therapy with telotristat for his carcinoid related diarrhea. It was initially put on hold, as he reported having some abdominal pain, but he was able to restart the medication with no recurrence of those symptoms. It has helped with the control of his diarrhea. On his follow-up visit in May 2017 his hemoglobin had dropped a little, to 12.4 g. His serum iron studies show transferrin saturation 7.5% and the ferritin level was low at 11.1 ng/mL, consistent with iron deficiency. He was given another course of parenteral iron replacement with infusions of Injectafer on 06/13/2017 and on 06/28/2017. Restaging CT of the chest, abdomen, and pelvis on 12/11/2017 showed stable postsurgical changes of right lower lobectomy with no suspicious pulmonary nodules noted. Postsurgical changes throughout the abdomen also appeared stable. There is no metastatic disease noted in the liver, and a left adrenal adenoma appeared stable. Multiple areas of dilatation and narrowing of the colon had a similar appearance to prior studies. Overall, there was no evidence of disease progression. He continued his monthly Sandostatin LAR. His other medical illnesses include hypertension, atrial fibrillation, GERD, obstructive sleep apnea, and depression. He also is known to have lumbar spinal canal stenosis, and he has been treated for gout. He underwent radical prostatectomy for prostate cancer in 2012. He had smoked in the past, but he quit almost 40 years ago. He has had just occasional alcohol use. INTERIM HISTORY: Restaging CT scans of the chest, abdomen, and pelvis on 04/03/2018 showed no evidence of metastatic disease in the chest and no metastatic disease or adenopathy in the abdomen/pelvis. There was just a slight change in the caliber of the colon at the sigmoid anastomotic suture site and possibly a slight increase in soft tissue near the anastomotic site. Overall, the findings appeared stable since April 2016. The dilated patulous appearance of the colon also appeared stable compared to multiple prior studies. There was unchanged left lateral abdominal wall omental herniation and unchanged left adrenal adenoma. He continued treatment with Sandostatin LAR. In April 2018 he was given another infusion of Injectafer, as his transferrin saturation and serum ferritin were both low, and he had become slightly anemic. He was given further parenteral iron replacement in October 2018 with his hemoglobin borderline low at 12.6 g and his ferritin low at 23 ng/mL. At his follow-up visit on 08/13/2019 he complained of being weak and short of breath. He was having more abdominal cramping and diarrhea. He also complained of joint aches and muscle cramps. His restaging CT scans on 08/14/2019 showed progression of mucosal thickening involving the ascending and transverse colon suggestive of postinflammatory or infectious process or neoplastic process. The anastomosis at the rectosigmoid junction appeared intact with no recurrent mass. There was a new, very small pericardial effusion. A well-circumscribed left adrenal mass measuring 2.7 cm appeared stable. There was mild hepatic steatosis. Calcifications were noted in the inferior right lobe of the liver, but there was no evidence of metastatic disease. Echocardiogram showed normal left ventricular systolic function with ejection fraction estimated at 60%. There was mild to moderate aortic valve regurgitation. The tricuspid valve appeared structurally normal. There was just a trace of tricuspid valve regurgitation. He is seen for a scheduled visit. He is feeling somewhat better, as his energy and activity tolerance has been more variable. He says he is generally okay for about a half a day, but in the afternoon he feels mushy. Since his last visit he has had a couple of good days and quite a few not so good days. He is doing light work, though. His ECOG score is 1. He complains of having nausea and headache. He restarted telotristat for the diarrhea, that does seem to be helping somewhat. He continues to have a lot of gas and abdominal discomfort. He also reports having burning in his rectum with defecation. He has good appetite. He has not had fever. He has occasional hot flashes/night sweating. He is short of breath with activity. He does not complain of chest pain. Bladder function has been okay. He has no significant joint or bone pain, but he continues to complain that his feet and toes burn. Medications: Allopurinol 1 (300 mg) Tablet Oral daily, AmLODIPine Besylate 1 Tablet (of 20 mg) Oral b.i.d., Aspirin EC 1 (81 mg) Tablet, enteric coated Oral daily, [facility] Omeprazole 1 (20 mg) Tablet, enteric coated Oral b.i.d., Gabapentin 1 (300 mg) Capsule Oral b.i.d., Klor-Con M10 1 Tablet (of 10 meq) Tablet, controlled release Oral b.i.d., Loperamide-Simethicone Tablet Oral, Magnesium Oxide 1 (400 mg) Capsule Oral daily, Niacin ER 1 (500 mg) Tablet, controlled release Oral daily, Opium Tincture (Paregoric) 1 dose(s) (of 2 mg/5mL) Tincture Oral 5x/d PRN, SandoSTATIN LAR [place] 1 (40 mg) Intramuscular q 4 weeks, Sertraline HCl 1 Tablet (of 100 mg) Oral b.i.d. Allergies: Ativan and Darvon. Review of Systems: Constitutional - His energy is up and down. His appetite is good and weight is stable. No fever. He has occasional night sweats. ECOG score is 1, ENMT - No sinus congestion/drainage. No mouth sores. No sore throat or difficulty swallowing, Hematologic/Lymphatic - No abnormal bruising or bleeding, Respiratory - He gets short of breath with activity. No cough. No pleuritic pain or hemoptysis, Cardiovascular - No angina pain. No palpitations, Gastrointestinal - He is having nausea. No vomiting. His heartburn is adequately managed with omeprazole. He continues to have abdominal cramping. He is also having a lot of diarrhea. No constipation. No blood in the stool or black stools. He is having constant burning in his rectum, Genitourinary (M) - No dysuria or hematuria. No urinary frequency. No urgency or incontinence, Musculoskeletal - No joint or bone pain, Integumentary - No skin complications, Neurologic - He is having frequent headaches. No dizziness. He is having burning in his feet and toes. No other focal neurologic symptoms, Psychiatric - No anxiety or depression. He does not sleep well. Vital Signs: Performed on Sep 16, 2019 09:59 Height - 72.00 in Weight - 216.6 lbs (HIGH) BSA - 2.20 sq.m BMI - 29.38 Temperature - 99.0 F (HIGH) Pulse - 96 /min Respiration - 22 /min BP - 151/102 mm(hg) (HIGH) O2 Sat - 99 % Pain - 6 Physical Examination: Constitutional - He looks pretty good generally, Eyes - Sclerae nonicteric. Conjunctivae clear, ENMT - No lesions noted in the oral cavity, Hematologic/Lymphatic - No cervical, clavicular, or axillary adenopathy, Respiratory - Lungs sound clear with some decrease in air movement bilaterally, Cardiovascular - Heart rhythm is irregular. The rate is controlled. There is a II/ systolic murmur. There is no gallop or rub noted, Abdomen - Mildly distended and soft. Liver and spleen are not enlarged. There is no abdominal mass or ascites noted and there is no inguinal adenopathy, Extremities - No edema, Neurologic - No focal neurologic deficits noted. Impression: 1. Patient with metastatic carcinoid of small intestine origin. He has been on treatment with Sandostatin LAR following debulking surgery in 2008. Thus far during followup there has been no documented progression of the carcinoid. 2. He underwent sigmoid colon resection for sigmoid diverticulitis with associated bowel obstruction in 2011. He has had chronic diarrhea, though it is uncertain to what extent it may be due to the carcinoid versus after effects of his surgeries. 3. He has had ongoing problems with the diarrhea. He does get benefit with the short acting octreotide injections and he also has symptomatic benefit with the tincture of opium. 4. He was found to have iron deficiency anemia. It was felt to most likely be due to inadequate iron absorption, as in the past he had not been able to correct it with oral iron. 5. He underwent radical prostatectomy for prostate cancer in 2012. He has had evidence of biochemical recurrence. His other medical illnesses include: 6. Hypertension. 7. Atrial fibrillation. 8. GERD. 9. Obstructive sleep apnea. 10. Degenerative disease of the spine with lumbar spinal canal stenosis. 11. History of gout. 12. Depression. He completed parenteral iron replacement with an infusion of Injectafer on 04/20/2016. He tolerated it well. In October 2016 he began a trial therapy with telotristat for the carcinoid associated diarrhea. He had been getting some clinical benefit with it, but he ultimately stopped taking it because of abdominal pain. His repeat laboratory studies in May 2017 were again consistent with iron deficiency. He completed additional parenteral iron replacement with 2 infusions of Injectafer. He had a good response, and he then continued his monthly Sandostatin injections. As of his follow-up visit in April 2018 his overall clinical status had remained stable, and follow-up laboratory studies and CT scans had shown no obvious recurrence/progression of the carcinoid. At that point he required an additional infusion of Injectafer, and he was given Injectafer again in November 2018. During follow-up he was found to have biochemical recurrence of the prostate cancer. He has continued treatment with Sandostatin LAR for the carcinoid. Over the past several months he has had progressive decline in his energy and activity tolerance. He is having more shortness of breath, and he also reports having weakness in his chest. Lately he has also been having more abdominal cramping and diarrhea. During follow-up he has required parenteral iron replacement with Injectafer on multiple occasions, most recently in November 2018. He was given a trial of therapy with telotristat for carcinoid associated diarrhea. He did seem to have some benefit, but he ultimately stopped taking it because of abdominal pain. As of April [address] scans had shown no evidence of disease progression. He continued treatment with Sandostatin LAR. At his follow-up visit on 08/13/2019 he complained of increased weakness and shortness of breath. He also was having more abdominal cramping and diarrhea. His restaging CT scans on 08/14/2019 showed increased mucosal thickening in the ascending and transverse colon, consistent with inflammatory, infectious, or neoplastic process. There was no other evidence of disease progression. His echocardiogram showed adequate LV function and no significant valvular disease. He has had some symptomatic improvement after restarting telotristat, but he continues to have limited activity tolerance and he has ongoing problems with abdominal bloating/discomfort and diarrhea. His blood pressure has been elevated, and he is in atrial fibrillation. Plan: He will continue treatment with Sandostatin LAR 40 mg by intramuscular injection monthly. At least for now is going to continue the telotristat for diarrhea. He is scheduled for colonoscopy with Dr. Stokes on 10/02/2019. 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 I will see him again in 2 months. Signed By: Yifan Guido M.D. <<Signature on File>>
== END 2019-09-16 09:41 | disposition home or self-care (01) ==
LOC: ONCMED 09:46
PROVIDERS: PCP Family Medicine; Visit Provider Internal Medicine Medical Oncology
DX: C7A.019 Malignant carcinoid tumor of the small intestine, unspecified portion (principal); C61 Malignant neoplasm of prostate; I10 Essential (primary) hypertension; I48.91 Unspecified atrial fibrillation; K21.9 Gastro-esophageal reflux disease without esophagitis; G47.33 Obstructive sleep apnea (adult) (pediatric); M48.061 Spinal stenosis, lumbar region without neurogenic claudication; F32.9 Major depressive disorder, single episode, unspecified; Z90.79 Acquired absence of other genital organ(s); Z90.49 Acquired absence of other specified parts of digestive tract; Z79.899 Other long term (current) drug therapy
CPT/HCPCS: 96372; 99214; J2353

== ENCOUNTER 2019-10-16 08:53 | Outpatient (CLI) | payer MEDICARE, OTHER, BC, SELFPAY ==
[2019-10-16] MEDS: octreotide LAR depot 20 mg Kit 40 MG IM (09:28)
== END 2019-10-16 08:54 | disposition home or self-care (01) ==
LOC: ONCMED 08:59
PROVIDERS: PCP Family Medicine; Visit Provider Internal Medicine Medical Oncology
DX: C61 Malignant neoplasm of prostate (principal); C7B.02 Secondary carcinoid tumors of liver; C7B.04 Secondary carcinoid tumors of peritoneum; C7B.09 Secondary carcinoid tumors of other sites; C7A.019 Malignant carcinoid tumor of the small intestine, unspecified portion; D50.9 Iron deficiency anemia, unspecified; I48.91 Unspecified atrial fibrillation; F32.9 Major depressive disorder, single episode, unspecified; K21.9 Gastro-esophageal reflux disease without esophagitis; I10 Essential (primary) hypertension; M48.061 Spinal stenosis, lumbar region without neurogenic claudication; G47.33 Obstructive sleep apnea (adult) (pediatric)
CPT/HCPCS: 96372; J2353

== ENCOUNTER 2019-11-18 11:10 | Outpatient (CLI) | payer MEDICARE, OTHER, BC, SELFPAY ==
[2019-11-18] MEDS: octreotide LAR depot 20 mg Kit IM (12:00)
--- NOTE | 2019-11-18 18:38 | ONC FU_ITS ---
Dr. Guido Patient Follow-Up Note Patient: Chilo Pacheco Unit #: [id number]: [id number] Dicatated By: Yifan Guido M.D.Date of Visit:Nov 18, 2019 Onc Med Follow-up/Prog Note Chief Complaint: Metastatic carcinoid. History of Present Illness: This is a 69 year-old man with metastatic carcinoid. According to the available records, he was admitted to the hospital in December 2008 with atrial fibrillation. At that time he was having abdominal pain and was found on CT scan to have multiple serosal and omental lesions. Ultrasound-guided biopsy was consistent with a carcinoid tumor. He subsequently underwent an exploratory laparotomy and debulking procedure. The primary tumor apparently was in the small intestine. The procedure included omentectomy, appendectomy, and cholecystectomy. According to the patient, metastatic lesions also were removed from the liver, kidney, and lung. He subsequently had chronic diarrhea, and he began treatment with monthly injections of Sandostatin LAR. His clinical course subsequent to his debulking surgery was complicated by an episode of bowel obstruction in 2011. This apparently was due to sigmoid diverticulitis and not to his malignancy. At that time he underwent sigmoid resection with colostomy placement, but the ostomy was later reversed. In 2012 he underwent radical prostatectomy for prostate cancer. I had seen him initially in May 2014. He continued on monthly injections of Sandostatin LAR. During follow-up, I also added short-acting octreotide injections to use as needed as well as tincture of opium to use as needed for the diarrhea. Beginning in August 2015 the Sandostatin LAR dosage was increased to 40 mg. His laboratory studies from 03/31/2016 showed evidence of iron deficiency with transferrin saturation 10% and serum ferritin 12 ng/mL. He was only borderline anemic, though. He was given parenteral iron replacement with a single infusion of Injectafer on 04/20/2016. In October 2016 he began a trial of therapy with telotristat for his carcinoid related diarrhea. It was initially put on hold, as he reported having some abdominal pain, but he was able to restart the medication with no recurrence of those symptoms. It has helped with the control of his diarrhea. On his follow-up visit in May 2017 his hemoglobin had dropped a little, to 12.4 g. His serum iron studies show transferrin saturation 7.5% and the ferritin level was low at 11.1 ng/mL, consistent with iron deficiency. He was given another course of parenteral iron replacement with infusions of Injectafer on 06/13/2017 and on 06/28/2017. Restaging CT of the chest, abdomen, and pelvis on 12/11/2017 showed stable postsurgical changes of right lower lobectomy with no suspicious pulmonary nodules noted. Postsurgical changes throughout the abdomen also appeared stable. There is no metastatic disease noted in the liver, and a left adrenal adenoma appeared stable. Multiple areas of dilatation and narrowing of the colon had a similar appearance to prior studies. Overall, there was no evidence of disease progression. He continued his monthly Sandostatin LAR. His other medical illnesses include hypertension, atrial fibrillation, GERD, obstructive sleep apnea, and depression. He also is known to have lumbar spinal canal stenosis, and he has been treated for gout. He underwent radical prostatectomy for prostate cancer in 2012. He had smoked in the past, but he quit almost 40 years ago. He has had just occasional alcohol use. INTERIM HISTORY: Restaging CT scans of the chest, abdomen, and pelvis on 04/03/2018 showed no evidence of metastatic disease in the chest and no metastatic disease or adenopathy in the abdomen/pelvis. There was just a slight change in the caliber of the colon at the sigmoid anastomotic suture site and possibly a slight increase in soft tissue near the anastomotic site. Overall, the findings appeared stable since April 2016. The dilated patulous appearance of the colon also appeared stable compared to multiple prior studies. There was unchanged left lateral abdominal wall omental herniation and unchanged left adrenal adenoma. He continued treatment with Sandostatin LAR. In April 2018 he was given another infusion of Injectafer, as his transferrin saturation and serum ferritin were both low, and he had become slightly anemic. He was given further parenteral iron replacement in October 2018 with his hemoglobin borderline low at 12.6 g and his ferritin low at 23 ng/mL. At his follow-up visit on 08/13/2019 he complained of being weak and short of breath. He was having more abdominal cramping and diarrhea. He also complained of joint aches and muscle cramps. His restaging CT scans on 08/14/2019 showed progression of mucosal thickening involving the ascending and transverse colon suggestive of postinflammatory or infectious process or neoplastic process. The anastomosis at the rectosigmoid junction appeared intact with no recurrent mass. There was a new, very small pericardial effusion. A well-circumscribed left adrenal mass measuring 2.7 cm appeared stable. There was mild hepatic steatosis. Calcifications were noted in the inferior right lobe of the liver, but there was no evidence of metastatic disease. Echocardiogram showed normal left ventricular systolic function with ejection fraction estimated at 60%. There was mild to moderate aortic valve regurgitation. The tricuspid valve appeared structurally normal. There was just a trace of tricuspid valve regurgitation. With those findings, he continued treatment with Sandostatin LAR 20 mg monthly. He has been back on treatment with telotristat for management of the diarrhea. He is seen for a scheduled visit. He has been feeling pretty good generally. He says his energy is pretty good, but he does wear out by afternoon. ECOG score is 1. He has good appetite. He has not had fever or night sweats. He has just occasional hot flushes. He recently has undergone excision of skin cancers from his right posterior shoulder area and from the left side of his face. He has some shortness of breath with more strenuous activity. He has just occasional cough. He does not complain of chest pain. He occasionally has nausea. He continues to have intermittent diarrhea and abdominal cramping. He has managing it adequately with the medication. He occasionally has constipation. He has urinary frequency and nocturia, and he has some difficulty with bladder control. He has some pain in his left leg. He does not complain of headache. He does have neuropathy pain in his feet. Medications: Allopurinol 1 (300 mg) Tablet Oral daily, AmLODIPine Besylate 1 Tablet (of 20 mg) Oral b.i.d., Aspirin EC 1 (81 mg) Tablet, enteric coated Oral daily, [facility] Omeprazole 1 (20 mg) Tablet, enteric coated Oral b.i.d., Gabapentin 1 (300 mg) Capsule Oral b.i.d., Klor-Con M10 1 Tablet (of 10 meq) Tablet, controlled release Oral b.i.d., Loperamide-Simethicone Tablet Oral, Magnesium Oxide 1 (400 mg) Capsule Oral daily, Niacin ER 1 (500 mg) Tablet, controlled release Oral daily, SandoSTATIN LAR [place] 1 (40 mg) Intramuscular q 4 weeks, Sertraline HCl 1 Tablet (of 100 mg) Oral b.i.d., Xermelo 1 Tablet (of 250 mg) Oral t.i.d. Allergies: Ativan and Darvon. Review of Systems: Constitutional - He energy has been okay, but he does get tried very easily. His appetite is good and his weight is up 6 pounds from last visit. No fever or night sweats. He has occasional mild hot flashes. ECOG score is 1, ENMT - No sinus congestion/drainage. No mouth sores. No sore throat or difficulty swallowing, Hematologic/Lymphatic - He bruises easily, Respiratory - He has some shortness of breath with activity. He has an occasional cough. No pleuritic pain or hemoptysis, Cardiovascular - No angina pain. No palpitations, Gastrointestinal - He has intermittent nausea. No vomiting. No heartburn or acid reflux. He has interimittent diarrhea. He is manages it adequately with medication. He sometimes has constipation. No blood in the stool or black stools, Genitourinary (M) - No dysuria or hematuria. He has urinary frequency both day and night. He has urgency. No incontinence, Musculoskeletal - He has pain in his left leg, Integumentary - He had some skin biopsies taken about one week ago by Dr. Edwards, he states that a few of them came back basal cell carcinoma, Neurologic - No headache or dizziness. He has neuropathy in his feet. No other focal neurologic symptoms, Psychiatric - No anxiety or depression. He does not sleep well. Vital Signs: Performed on Nov 18, 2019 11:20 Height - 72.00 in Weight - 222.0 lbs (HIGH) BSA - 2.23 sq.m BMI - 30.11 (HIGH) Temperature - 97.2 F (LOW) Pulse - 77 /min Respiration - 18 /min BP - 155/110 mm(hg) (HIGH) O2 Sat - 98 % Pain - 0 Physical Examination: Constitutional - He looks pretty good generally, Eyes - Sclerae nonicteric. Conjunctivae clear, ENMT - No lesions noted in the oral cavity, Hematologic/Lymphatic - No cervical, clavicular, or axillary adenopathy, Respiratory - Lungs sound clear with some decrease in air movement bilaterally, Cardiovascular - Heart rhythm is irregular. There is a II/ systolic murmur. There is no gallop or rub noted, Abdomen - Mildly distended. Liver and spleen are not enlarged. There is no abdominal mass or ascites noted and there is no inguinal adenopathy, Extremities - No edema, Integumentary - There is a small crater at his recent biopsy site in the posterior right shoulder area. It contains white exudate. There is no associated erythema, Neurologic - No focal neurologic deficits noted. Lab/Imaging: Test performed on Nov 14, 2019 11:06 U 5 HIAA 4.9 mg/L U 5 HIAA, 24hr 7 mg/24hr Test performed on Nov 11, 2019 10:14 Ferritin 25 ng/mL Homocysteine 12 umol/L Methylmalonic Acid 0.15 nmol/L Serotonin 170 ng/mL Vitamin B12 547 pg/mL TIBC 374 mcg/dL Glucose 101 mg/dL BUN 16 mg/dL Creatinine 1.19 mg/dL Cr Clearance (Est) 79.12 mL/min Sodium 139 mmol/L Potassium 4.0 mmol/L Chloride 109 mmol/L CO2 23.3 mmol/L Calcium 9.3 mg/dL Protein, Total 8.0 g/dL Albumin 3.9 g/dL Globulin 4.1 g/dL Bilirubin, Total .4 mg/dL Alkaline Phosphatase 174 IU/L AST (SGOT) 40 IU/L ALT (SGPT) 36 IU/L WBC 5.6 10^9/L RBC 4.48 10^12/L HGB 13.9 g/dL HCT 43.1 % MCV 96.2 fl MCH 31.0 pg MCHC 32.3 g/dL RDW 14.0 % Platelet Count 194 10^9/L MPV 10.0 fL Neutrophils (Gran) 3.03 10^9/L Lymphocytes 1.89 10^9/L Monocytes .48 10^9/L Eosinophils .19 10^9/L Basophils .03 10^9/L Manual Lymphocytes 33.5 % Manual Monocytes 8.5 % Manual Eosinophils 3.4 % Manual Basophils 0.5 % Chromogranin A 147 ng/mL Impression: 1. Patient with metastatic carcinoid of small intestine origin. He has been on treatment with Sandostatin LAR following debulking surgery in 2008. Thus far during followup there has been no documented progression of the carcinoid. 2. He underwent sigmoid colon resection for sigmoid diverticulitis with associated bowel obstruction in 2011. He has had chronic diarrhea, though it is uncertain to what extent it may be due to the carcinoid versus after effects of his surgeries. 3. He has had ongoing problems with the diarrhea. He does get benefit with the short acting octreotide injections and he also has symptomatic benefit with the tincture of opium. 4. He was found to have iron deficiency anemia. It was felt to most likely be due to inadequate iron absorption, as in the past he had not been able to correct it with oral iron. 5. He underwent radical prostatectomy for prostate cancer in 2012. He has had evidence of biochemical recurrence. His other medical illnesses include: 6. Hypertension. 7. Atrial fibrillation. 8. GERD. 9. Obstructive sleep apnea. 10. Degenerative disease of the spine with lumbar spinal canal stenosis. 11. History of gout. 12. Depression. He completed parenteral iron replacement with an infusion of Injectafer on 04/20/2016. He tolerated it well. In October 2016 he began a trial therapy with telotristat for the carcinoid associated diarrhea. He had been getting some clinical benefit with it, but he ultimately stopped taking it because of abdominal pain. His repeat laboratory studies in May 2017 were again consistent with iron deficiency. He completed additional parenteral iron replacement with 2 infusions of Injectafer. He had a good response, and he then continued his monthly Sandostatin injections. As of his follow-up visit in April 2018 his overall clinical status had remained stable, and follow-up laboratory studies and CT scans had shown no obvious recurrence/progression of the carcinoid. At that point he required an additional infusion of Injectafer, and he was given Injectafer again in November 2018. During follow-up he was found to have biochemical recurrence of the prostate cancer. He has continued treatment with Sandostatin LAR for the carcinoid. Over the past several months he has had progressive decline in his energy and activity tolerance. He is having more shortness of breath, and he also reports having weakness in his chest. Lately he has also been having more abdominal cramping and diarrhea. During follow-up he has required parenteral iron replacement with Injectafer on multiple occasions, most recently in November 2018. He was given a trial of therapy with telotristat for carcinoid associated diarrhea. He did seem to have some benefit, but he ultimately stopped taking it because of abdominal pain. As of April [address] scans had shown no evidence of disease progression. He continued treatment with Sandostatin LAR. At his follow-up visit on 08/13/2019 he complained of increased weakness and shortness of breath. He also was having more abdominal cramping and diarrhea. His restaging CT scans on 08/14/2019 showed increased mucosal thickening in the ascending and transverse colon, consistent with inflammatory, infectious, or neoplastic process. There was no other evidence of disease progression. His echocardiogram showed adequate LV function and no significant valvular disease. He has had some symptomatic improvement after restarting telotristat, but he continues to have limited activity tolerance and he has ongoing problems with abdominal bloating/discomfort and diarrhea. His blood pressure has been elevated, and he is in atrial fibrillation. Plan: He will continue treatment with Sandostatin LAR 40 mg by intramuscular injection monthly. He will continue telotristat for the diarrhea. I will see him again in 3 months. Signed By: Yifan Guido M.D. <<Signature on File>>
== END 2019-11-18 11:11 | disposition home or self-care (01) ==
LOC: ONCMED 11:13
PROVIDERS: PCP Family Medicine; Visit Provider Internal Medicine Medical Oncology
DX: C61 Malignant neoplasm of prostate (principal); C7A.019 Malignant carcinoid tumor of the small intestine, unspecified portion; C7B.02 Secondary carcinoid tumors of liver; C7B.04 Secondary carcinoid tumors of peritoneum; C7B.09 Secondary carcinoid tumors of other sites; D50.9 Iron deficiency anemia, unspecified; I48.91 Unspecified atrial fibrillation; F32.9 Major depressive disorder, single episode, unspecified; K21.9 Gastro-esophageal reflux disease without esophagitis; I10 Essential (primary) hypertension; M48.061 Spinal stenosis, lumbar region without neurogenic claudication; G47.33 Obstructive sleep apnea (adult) (pediatric)
CPT/HCPCS: 96372; 99214; J2353

== ENCOUNTER 2019-12-19 10:02 | Outpatient (CLI) | payer MEDICARE, OTHER, BC, SELFPAY ==
[2019-12-19] MEDS: octreotide LAR depot 20 mg Kit 40 MG IM (10:23)
== END 2019-12-19 10:03 | disposition home or self-care (01) ==
PROVIDERS: PCP Family Medicine; Visit Provider Internal Medicine Medical Oncology
DX: C61 Malignant neoplasm of prostate (principal); Z79.818 Long term (current) use of other agents affecting estrogen receptors and estrogen levels
CPT/HCPCS: 96372; J2353

== ENCOUNTER 2020-02-03 10:05 | Outpatient (CLI) | payer MEDICARE, OTHER, BC, SELFPAY ==
[2020-02-03] MEDS: octreotide LAR depot 20 mg Kit 40 MG IM (14:12)
== END 2020-02-03 10:06 | disposition home or self-care (01) ==
PROVIDERS: PCP Family Medicine; Visit Provider Internal Medicine Medical Oncology
DX: C61 Malignant neoplasm of prostate (principal); C7A.019 Malignant carcinoid tumor of the small intestine, unspecified portion; C7B.02 Secondary carcinoid tumors of liver; C7B.04 Secondary carcinoid tumors of peritoneum; C7B.09 Secondary carcinoid tumors of other sites; D50.9 Iron deficiency anemia, unspecified
CPT/HCPCS: 96372; J2353

== ENCOUNTER 2020-02-12 06:05 | Outpatient (CLI) | payer MEDICARE, OTHER, BC, SELFPAY ==
[2020-02-12 09:40] LABS: Basophils # 0.1 10^3/uL (0.0-0.1); Eosinophils # 0.2 10^3/uL (0.0-0.8); Eosinophils % 2.3 %; Hematocrit 32.1 % (42.0-52.0); Hemoglobin 9.4 g/dL (11.7-16.6); Lymphocytes # 2.1 10^3/uL (0.8-4.8); Lymphocytes % 28.8 %; Mean Corpuscular HGB Conc 29.3 g/dL (30.0-36.0); Mean Corpuscular Volume 92.2 fL (80-94); Mean Platelet Volume 10.7 fL (7.4-10.4); Monocytes # 0.5 10^3/uL (0.2-0.9); Monocytes % 6.8 %; Neutrophils # 4.44 10^3/uL (1.8-7.7); Neutrophils % 60.8 %; Nucleated Red Blood Cells % 0 %; Platelet Count 247 10^3/cmm (130-400); Red Blood Count 3.48 10^6/uL (4.1-5.3); Red Cell Distribution Width 13.9 % (12.1-15.1); White Blood Count 7.3 10^3/uL (4.0-10.0)
[2020-02-12 10:07] LABS: Ferritin 22 ng/mL (30-400); Iron 29 ug/dL (59-158)
[2020-02-12 10:10] LABS: Total Iron Binding Capacity 361 mcg/dl; Unsaturated Iron Binding 332 ug/dL (112-347)
[2020-02-12] MEDS: ferric carboxy (IVPB) 750 MG in sodium chloride 0.9% (100 ml) 100 ML 460 MG IV (10:30)
[2020-02-14 00:57] LABS: Quest SARS-CoV-2 RNA NOT DETECTED (NOT DETECTED)
== END 2020-02-12 06:06 | disposition home or self-care (01) ==
LOC: ONCMED 06:08
PROVIDERS: PCP Family Medicine; Visit Provider Internal Medicine Medical Oncology
DX: D50.9 Iron deficiency anemia, unspecified (principal); Z20.828 Contact with and (suspected) exposure to other viral communicable diseases; C61 Malignant neoplasm of prostate; C7B.02 Secondary carcinoid tumors of liver; C7B.04 Secondary carcinoid tumors of peritoneum; C7B.09 Secondary carcinoid tumors of other sites; C7A.019 Malignant carcinoid tumor of the small intestine, unspecified portion
CPT/HCPCS: 82728; 83540; 83550; 85025; 86850; 86900; 87635; 96365; J1439

== ENCOUNTER 2020-02-19 06:23 | Outpatient (CLI) | payer MEDICARE, OTHER, BC, SELFPAY ==
[2020-02-19] MEDS: ferric carboxy (PYXIS) 750 mg/15 mL INJ IV (12:15)
[2020-02-19] MEDS: sodium chloride 0.9% (100 ml) 100 ML 400 ML (12:15)
[2020-02-19] MEDS: sodium chloride 0.9% 100 mL Bag IV (12:15)
== END 2020-02-19 06:24 | disposition home or self-care (01) ==
LOC: ONCMED 06:26
PROVIDERS: PCP Family Medicine; Visit Provider Internal Medicine Medical Oncology
DX: D50.9 Iron deficiency anemia, unspecified (principal); C61 Malignant neoplasm of prostate; C7B.02 Secondary carcinoid tumors of liver; C7B.04 Secondary carcinoid tumors of peritoneum; C7B.09 Secondary carcinoid tumors of other sites; C7A.019 Malignant carcinoid tumor of the small intestine, unspecified portion
CPT/HCPCS: 96365; J1439

== ENCOUNTER 2020-03-05 05:55 | Outpatient (CLI) | payer MEDICARE, OTHER, BC, SELFPAY ==
[2020-03-05 09:53] LABS: Basophils # 0.1 10^3/uL (0.0-0.1); Basophils % 0.9 %; Eosinophils # 0.2 10^3/uL (0.0-0.8); Eosinophils % 3.2 %; Hematocrit 35.7 % (42.0-52.0); Hemoglobin 10.8 g/dL (11.7-16.6); Lymphocytes # 1.7 10^3/uL (0.8-4.8); Lymphocytes % 31.7 %; Mean Corpuscular HGB Conc 30.3 g/dL (30.0-36.0); Mean Corpuscular Hemoglobin 29.3 pg (28.0-34.0); Mean Platelet Volume 10.5 fL (7.4-10.4); Monocytes # 0.4 10^3/uL (0.2-0.9); Monocytes % 6.6 %; Neutrophils # 3.04 10^3/uL (1.8-7.7); Neutrophils % 57.4 %; Nucleated Red Blood Cells % 0 %; Platelet Count 230 10^3/cmm (130-400); Red Blood Count 3.68 10^6/uL (4.1-5.3); Red Cell Distribution Width 20.6 % (12.1-15.1); White Blood Count 5.3 10^3/uL (4.0-10.0)
[2020-03-05 10:14] LABS: Alanine Aminotransferase 19 U/L (0-41); Albumin Level 4.1 g/dL (3.5-5.2); Alkaline Phosphatase 130 IU/L (40-130); Anion Gap 13.2 (5-19); Aspartate Amino Transferase 25 U/L (0-40); Blood Urea Nitrogen 10 mg/dL (8-23); Calcium 8.6 mg/dL (8.5-10.5); Carbon Dioxide 22 mmol/L (22-29); Chloride 108 mmol/L (98-107); Globulin 2.6 g/dL (1.3-4.6); Glucose 89 mg/dL (65-115); Osmolality Calculated 287 mOsm/kg (285-295); Potassium 4.2 mmol/L (3.5-5.1); Sodium 139 mmol/L (136-145); Total Bilirubin 0.3 mg/dL (0.15-1.2); Total Protein 6.7 g/dL (6.6-8.7)
[2020-03-05] MEDS: octreotide LAR depot 20 mg Kit 40 MG IM (11:51)
--- NOTE | 2020-03-08 11:52 | ONC FU_ITS ---
Dr. Guido Patient Follow-Up Note Patient: Chilo Pacheco Unit #: [id number]: 1950 Dicatated By: Yifan Guido M.D.Date of Visit:Mar 05, 2020 Onc Med Follow-up/Prog Note Chief Complaint: Metastatic carcinoid. History of Present Illness: This is a 69 year-old man with metastatic carcinoid. According to the available records, he was admitted to the hospital in December 2008 with atrial fibrillation. At that time he was having abdominal pain and was found on CT scan to have multiple serosal and omental lesions. Ultrasound-guided biopsy was consistent with a carcinoid tumor. He subsequently underwent an exploratory laparotomy and debulking procedure. The primary tumor apparently was in the small intestine. The procedure included omentectomy, appendectomy, and cholecystectomy. According to the patient, metastatic lesions also were removed from the liver, kidney, and lung. He subsequently had chronic diarrhea, and he began treatment with monthly injections of Sandostatin LAR. His clinical course subsequent to his debulking surgery was complicated by an episode of bowel obstruction in 2011. This apparently was due to sigmoid diverticulitis and not to his malignancy. At that time he underwent sigmoid resection with colostomy placement, but the ostomy was later reversed. In 2012 he underwent radical prostatectomy for prostate cancer. I had seen him initially in May 2014. He continued on monthly injections of Sandostatin LAR. During follow-up, I also added short-acting octreotide injections to use as needed as well as tincture of opium to use as needed for the diarrhea. Beginning in August 2015 the Sandostatin LAR dosage was increased to 40 mg. His laboratory studies from 03/31/2016 showed evidence of iron deficiency with transferrin saturation 10% and serum ferritin 12 ng/mL. He was only borderline anemic, though. He was given parenteral iron replacement with a single infusion of Injectafer on 04/20/2016. In October 2016 he began a trial of therapy with telotristat for his carcinoid related diarrhea. It was initially put on hold, as he reported having some abdominal pain, but he was able to restart the medication with no recurrence of those symptoms. It has helped with the control of his diarrhea. On his follow-up visit in May 2017 his hemoglobin had dropped a little, to 12.4 g. His serum iron studies show transferrin saturation 7.5% and the ferritin level was low at 11.1 ng/mL, consistent with iron deficiency. He was given another course of parenteral iron replacement with infusions of Injectafer on 06/13/2017 and on 06/28/2017. Restaging CT of the chest, abdomen, and pelvis on 12/11/2017 showed stable postsurgical changes of right lower lobectomy with no suspicious pulmonary nodules noted. Postsurgical changes throughout the abdomen also appeared stable. There is no metastatic disease noted in the liver, and a left adrenal adenoma appeared stable. Multiple areas of dilatation and narrowing of the colon had a similar appearance to prior studies. Overall, there was no evidence of disease progression. He continued his monthly Sandostatin LAR. His other medical illnesses include hypertension, atrial fibrillation, GERD, obstructive sleep apnea, and depression. He also is known to have lumbar spinal canal stenosis, and he has been treated for gout. He underwent radical prostatectomy for prostate cancer in 2012. He had smoked in the past, but he quit almost 40 years ago. He has had just occasional alcohol use. INTERIM HISTORY: Restaging CT scans of the chest, abdomen, and pelvis on 04/03/2018 showed no evidence of metastatic disease in the chest and no metastatic disease or adenopathy in the abdomen/pelvis. There was just a slight change in the caliber of the colon at the sigmoid anastomotic suture site and possibly a slight increase in soft tissue near the anastomotic site. Overall, the findings appeared stable since April 2016. The dilated patulous appearance of the colon also appeared stable compared to multiple prior studies. There was unchanged left lateral abdominal wall omental herniation and unchanged left adrenal adenoma. He continued treatment with Sandostatin LAR. In April 2018 he was given another infusion of Injectafer, as his transferrin saturation and serum ferritin were both low, and he had become slightly anemic. He was given further parenteral iron replacement in October 2018 with his hemoglobin borderline low at 12.6 g and his ferritin low at 23 ng/mL. At his follow-up visit on 08/13/2019 he complained of being weak and short of breath. He was having more abdominal cramping and diarrhea. He also complained of joint aches and muscle cramps. His restaging CT scans on 08/14/2019 showed progression of mucosal thickening involving the ascending and transverse colon suggestive of postinflammatory or infectious process or neoplastic process. The anastomosis at the rectosigmoid junction appeared intact with no recurrent mass. There was a new, very small pericardial effusion. A well-circumscribed left adrenal mass measuring 2.7 cm appeared stable. There was mild hepatic steatosis. Calcifications were noted in the inferior right lobe of the liver, but there was no evidence of metastatic disease. Echocardiogram showed normal left ventricular systolic function with ejection fraction estimated at 60%. There was mild to moderate aortic valve regurgitation. The tricuspid valve appeared structurally normal. There was just a trace of tricuspid valve regurgitation. With those findings, he continued treatment with Sandostatin LAR 20 mg monthly. He had restarted treatment with telotristat for management of the diarrhea. At his scheduled treatment in January 2020 he was complaining of increased weakness/fatigue. His CBC showed recurrent anemia with hemoglobin 9.7 g and hematocrit 31%. His serum iron studies showed low transferrin saturation at 8% with ferritin also low at 22 ng/mL, consistent with iron deficiency. He was given parenteral iron replacement with 2 infusions of Injectafer. He is seen now for a follow-up visit. His energy has improved a little following the recent infusions of Injectafer, but he still has weakness/fatigue and shortness of breath, and his activity is limited. His ECOG score is 2. He has been seeing his press and blow machine tender and he has been found to have atrial fibrillation. He is scheduled to have further evaluation with a stress test tomorrow and with an echocardiogram next week. Subsequent to his last visit he had opted to stop taking the telotristat. He is now taking Imodium for diarrhea, and that does seem to be working better for him. He also reports having more frequent muscle cramps in his legs and he is having neuropathy symptoms in the lower extremities. Medications: Allopurinol 1 (300 mg) Tablet Oral daily, AmLODIPine Besylate 1 Tablet (of 20 mg) Oral b.i.d., Aspirin EC 1 (81 mg) Tablet, enteric coated Oral daily, [facility] Omeprazole 1 (20 mg) Tablet, enteric coated Oral b.i.d., Eliquis 1 Tablet (of 5 mg) Oral b.i.d., Gabapentin 1 (300 mg) Capsule Oral b.i.d., Imodium A-D (2 mg) Tablet Oral Take as Directed, Klor-Con M10 1 Tablet (of 10 meq) Tablet, controlled release Oral b.i.d., Loperamide-Simethicone Tablet Oral, Magnesium Oxide 1 (400 mg) Capsule Oral daily, Metoprolol Tartrate 1 Tablet (of 50 mg) Oral daily, Niacin ER 1 (500 mg) Tablet, controlled release Oral daily, SandoSTATIN LAR [place] 1 (40 mg) Intramuscular q 4 weeks, Sertraline HCl 1 Tablet (of 100 mg) Oral b.i.d. Allergies: Ativan and Darvon. Review of Systems: Constitutional - His energy has been a little better but he still has limited activity. His appetite has been down a bit. He has lost weight. He does not have fever or night sweats. He did feel hot last night, but he has not had flushing episodes. His ECOG score is 2, ENMT - No sinus congestion/drainage. No mouth sores. No sore throat or difficulty swallowing, Hematologic/Lymphatic - No abnormal bruising or bleeding, Respiratory - He has been short of breath. He has just occasional cough. No pleuritic pain or hemoptysis, Cardiovascular - He has developed atrial fibrillation, and he has been having some pressure in his chest, Gastrointestinal - He occasionally has nausea. One episode of heartburn. His diarrhea has improved, as he has started using Imodium. No blood in the stool or black stools, Genitourinary (M) - No dysuria or hematuria. No urinary frequency. No urgency or incontinence, Musculoskeletal - He has been having leg cramps, Integumentary - No skin rash, Neurologic - He has been having faint headaches. He is sometimes off balance. He has numbness in his toes and on the bottoms of his feet, Psychiatric - His anxiety/depression is adequately managed with sertraline. No insomnia. Vital Signs: Performed on Mar 05, 2020 10:49 Height - 72.00 in Weight - 214.8 lbs (LOW) BSA - 2.20 sq.m BMI - 29.13 Temperature - 99.3 F (HIGH) Pulse - 87 /min Respiration - 18 /min BP - 140/84 mm(hg) O2 Sat - 98 % Pain - 0 Physical Examination: Constitutional - He does not appear acutely ill, Eyes - Sclerae nonicteric. Conjunctivae clear, ENMT - No lesions noted in the oral cavity, Hematologic/Lymphatic - No cervical, clavicular, or axillary adenopathy, Respiratory - Lungs sound clear with some decrease in air movement bilaterally, Cardiovascular - Heart rhythm is irregular. The rate is controlled. There is a II/ systolic murmur. There is no gallop or rub noted, Abdomen - Mildly distended but soft. Liver and spleen are not enlarged. There is no abdominal mass or ascites noted and there is no inguinal adenopathy, Extremities - No edema, Neurologic - No focal neurologic deficits noted. Lab/Imaging: Test performed on Mar 05, 2020 09:00 Sodium 139 mmol/L Potassium 4.2 mmol/L Chloride 108 mmol/L CO2 22 mmol/L Anion Gap 13.2 BUN 10 mg/dL Creatinine 1.0 mg/dL Cr Clearance (Est) 93.37 mL/min Glucose 89 mg/dL Osmolality - Calculated 287 mOsm/kg Calcium 8.6 mg/dL Protein, Total 6.7 g/dL Albumin 4.1 g/dL Globulin 2.6 g/dL Bilirubin, Total 0.3 mg/dL ALT (SGPT) 19 U/L AST (SGOT) 25 U/L Alkaline Phosphatase 130 IU/L WBC 5.3 10 3/uL RBC 3.68 10 6/uL HGB 10.8 g/dL HCT 35.7 % MCV 97.0 fL MCH 29.3 pg MCHC 30.3 g/dL RDW 20.6 % Platelet Count 230 10 3/cmm MPV 10.5 fL Neutrophils 3.04 10 3/uL Lymphocytes 1.7 10 3/uL Monocytes 0.4 10 3/uL Eosinophils 0.2 10 3/uL Basophils 0.1 10 3/uL Neutrophil % 57.4 % Lymphocyte % 31.7 % Monocyte % 6.6 % Eosinophil % 3.2 % Basophils % 0.9 % NRBC % 0 % PSA 1.360 ng/mL Impression: 1. Patient with metastatic carcinoid of small intestine origin. He has been on treatment with Sandostatin LAR following debulking surgery in 2008. Thus far during followup there has been no documented progression of the carcinoid. 2. He underwent sigmoid colon resection for sigmoid diverticulitis with associated bowel obstruction in 2011. He has had chronic diarrhea, though it is uncertain to what extent it may be due to the carcinoid versus after effects of his surgeries. 3. He has had ongoing problems with the diarrhea. He does get benefit with the short acting octreotide injections and he also has symptomatic benefit with the tincture of opium. 4. He was found to have iron deficiency anemia. It was felt to most likely be due to inadequate iron absorption, as in the past he had not been able to correct it with oral iron. 5. He underwent radical prostatectomy for prostate cancer in 2012. He has had evidence of biochemical recurrence. His other medical illnesses include: 6. Hypertension. 7. Atrial fibrillation. 8. GERD. 9. Obstructive sleep apnea. 10. Degenerative disease of the spine with lumbar spinal canal stenosis. 11. History of gout. 12. Depression. He completed parenteral iron replacement with an infusion of Injectafer on 04/20/2016. He tolerated it well. In October 2016 he began a trial therapy with telotristat for the carcinoid associated diarrhea. He had been getting some clinical benefit with it, but he ultimately stopped taking it because of abdominal pain. His repeat laboratory studies in May 2017 were again consistent with iron deficiency. He completed additional parenteral iron replacement with 2 infusions of Injectafer. He had a good response, and he then continued his monthly Sandostatin injections. As of his follow-up visit in April 2018 his overall clinical status had remained stable, and follow-up laboratory studies and CT scans had shown no obvious recurrence/progression of the carcinoid. At that point he required an additional infusion of Injectafer, and he was given Injectafer again in November 2018. During follow-up he was found to have biochemical recurrence of the prostate cancer. He has continued treatment with Sandostatin LAR for the carcinoid. Over the past several months he has had progressive decline in his energy and activity tolerance. He is having more shortness of breath, and he also reports having weakness in his chest. Lately he has also been having more abdominal cramping and diarrhea. During follow-up he has required parenteral iron replacement with Injectafer on multiple occasions, most recently in November 2018. He was given a trial of therapy with telotristat for carcinoid associated diarrhea. He did seem to have some benefit, but he ultimately stopped taking it because of abdominal pain. As of April [address] scans had shown no evidence of disease progression. At his follow-up visit on 08/13/2019 he complained of increased weakness and shortness of breath. He also was having more abdominal cramping and diarrhea. His restaging CT scans on 08/14/2019 showed increased mucosal thickening in the ascending and transverse colon, consistent with inflammatory, infectious, or neoplastic process. There was no other evidence of disease progression. His echocardiogram showed adequate LV function and no significant valvular disease. He continued treatment with Sandostatin LAR. As of his scheduled treatment in January 2020 he had reported increased weakness/fatigue and he was found to have recurrence of iron deficiency anemia. He was given parenteral iron replacement with 2 infusions of Injectafer. At this point he continues to have significant fatigue and he also complains of increased shortness of breath. He currently is undergoing additional evaluation with his press and blow machine tender. Plan: He will continue treatment with Sandostatin LAR 40 mg by intramuscular injection monthly. He will be given a prescription for Lomotil to take 2 tablets up to 4 times a day as needed. He is going to try increasing gabapentin to 300 mg 3 times daily for his neuropathy symptoms. I will recheck his lab studies in 2 weeks. I will tentatively plan a follow-up visit in 3 months. In the meantime, I also will have him bring in a stool sample for IFOB. Signed By: Yifan Guido M.D. <<Signature on File>>
[2020-03-09 17:47] LABS: Chromogranin A 331 ng/mL (25-140)
[2020-03-10 11:57] LABS: Serotonin Whole Blood 295 ng/mL (56-244)
[2020-03-11 21:49] LABS: 24 Hour Urine Volume 1000 mL; 5-HIAA, 24 Hour Urine 16.5 mg/24 h (<=6.0)
== END 2020-03-05 05:56 | disposition home or self-care (01) ==
PROVIDERS: PCP Family Medicine; Visit Provider Internal Medicine Medical Oncology
DX: C7A.019 Malignant carcinoid tumor of the small intestine, unspecified portion (principal); C7B.02 Secondary carcinoid tumors of liver; C7B.04 Secondary carcinoid tumors of peritoneum; C7B.09 Secondary carcinoid tumors of other sites; C61 Malignant neoplasm of prostate; D50.9 Iron deficiency anemia, unspecified; I10 Essential (primary) hypertension; I48.91 Unspecified atrial fibrillation; K21.9 Gastro-esophageal reflux disease without esophagitis; G47.33 Obstructive sleep apnea (adult) (pediatric); M47.9 Spondylosis, unspecified; M48.061 Spinal stenosis, lumbar region without neurogenic claudication; M10.9 Gout, unspecified; F32.9 Major depressive disorder, single episode, unspecified; Z79.899 Other long term (current) drug therapy
CPT/HCPCS: 80053; 83497; 84153; 84260; 85025; 86316; 96372; 99214; J2353

== ENCOUNTER 2020-03-19 06:35 | Outpatient (CLI) | payer MEDICARE, OTHER, BC, SELFPAY ==
[2020-03-19 14:25] LABS: Basophils % 0.4 %; Eosinophils % 0.7 %; Hematocrit 35.7 % (42.0-52.0); Hemoglobin 10.9 g/dL (11.7-16.6); Lymphocytes # 1.4 10^3/uL (0.8-4.8); Lymphocytes % 30.6 %; Mean Corpuscular HGB Conc 30.5 g/dL (30.0-36.0); Mean Corpuscular Hemoglobin 29.5 pg (28.0-34.0); Mean Corpuscular Volume 96.5 fL (80-94); Mean Platelet Volume 10.3 fL (7.4-10.4); Monocytes # 0.4 10^3/uL (0.2-0.9); Monocytes % 9.6 %; Neutrophils # 2.69 10^3/uL (1.8-7.7); Neutrophils % 58.7 %; Nucleated Red Blood Cells % 0 %; Platelet Count 183 10^3/cmm (130-400); Red Cell Distribution Width 19.2 % (12.1-15.1); White Blood Count 4.6 10^3/uL (4.0-10.0)
[2020-03-19 16:52] LABS: Ferritin 292 ng/mL (30-400); Iron 33 ug/dL (59-158); Percent Saturation 13.5 % (20-50); Total Iron Binding Capacity 244 mcg/dl; Unsaturated Iron Binding 211 ug/dL (112-347)
== END 2020-03-19 06:36 | disposition home or self-care (01) ==
LOC: ONCMED 06:39
PROVIDERS: PCP Family Medicine; Visit Provider Nurse Practitioner
DX: C7A.019 Malignant carcinoid tumor of the small intestine, unspecified portion (principal); C7B.02 Secondary carcinoid tumors of liver; C7B.04 Secondary carcinoid tumors of peritoneum; C7B.09 Secondary carcinoid tumors of other sites; D50.9 Iron deficiency anemia, unspecified; C61 Malignant neoplasm of prostate
CPT/HCPCS: 36415; 82274; 82728; 83540; 83550; 85025

== ENCOUNTER 2020-03-26 13:42 | Outpatient (CLI) | payer MEDICARE, OTHER, BC, SELFPAY ==
[2020-03-26 15:48] LABS: Basophils % 0.4 %; Eosinophils # 0.2 10^3/uL (0.0-0.8); Eosinophils % 2.1 %; Hematocrit 35.6 % (42.0-52.0); Hemoglobin 10.9 g/dL (11.7-16.6); Lymphocytes # 1.6 10^3/uL (0.8-4.8); Lymphocytes % 21.9 %; Mean Corpuscular HGB Conc 30.6 g/dL (30.0-36.0); Mean Corpuscular Hemoglobin 29.9 pg (28.0-34.0); Mean Corpuscular Volume 97.5 fL (80-94); Mean Platelet Volume 11.4 fL (7.4-10.4); Monocytes # 0.4 10^3/uL (0.2-0.9); Monocytes % 5.7 %; Neutrophils # 5.21 10^3/uL (1.8-7.7); Neutrophils % 69.6 %; Nucleated Red Blood Cells % 0 %; Platelet Count 307 10^3/cmm (130-400); Red Blood Count 3.65 10^6/uL (4.1-5.3); White Blood Count 7.5 10^3/uL (4.0-10.0)
[2020-03-26 16:06] LABS: Alanine Aminotransferase 45 U/L (0-41); Albumin Level 4.1 g/dL (3.5-5.2); Alkaline Phosphatase 159 IU/L (40-130); Anion Gap 14.2 (5-19); Aspartate Amino Transferase 56 U/L (0-40); Blood Urea Nitrogen 14 mg/dL (8-23); Calcium 8.7 mg/dL (8.5-10.5); Carbon Dioxide 19 mmol/L (22-29); Chloride 115 mmol/L (98-107); Globulin 3.2 g/dL (1.3-4.6); Glucose 89 mg/dL (65-115); Osmolality Calculated 298 mOsm/kg (285-295); Potassium 4.2 mmol/L (3.5-5.1); Sodium 144 mmol/L (136-145); Total Bilirubin 0.3 mg/dL (0.15-1.2); Total Protein 7.3 g/dL (6.6-8.7)
== END 2020-03-26 13:43 | disposition home or self-care (01) ==
LOC: ONCMED 16:40
PROVIDERS: PCP Family Medicine; Visit Provider Internal Medicine Medical Oncology
DX: C7A.019 Malignant carcinoid tumor of the small intestine, unspecified portion (principal); C7B.02 Secondary carcinoid tumors of liver; C7B.04 Secondary carcinoid tumors of peritoneum; C7B.09 Secondary carcinoid tumors of other sites; D50.9 Iron deficiency anemia, unspecified; C61 Malignant neoplasm of prostate
CPT/HCPCS: 80053; 85025

== ENCOUNTER 2020-04-07 05:57 | Outpatient (CLI) | payer MEDICARE, OTHER, BC, SELFPAY ==
[2020-04-07] MEDS: ferric carboxy (IVPB) 750 MG in sodium chloride 0.9% (100 ml) 100 ML 345 MG IV (14:09)
[2020-04-07 14:37] LABS: Basophils % 0.6 %; Eosinophils # 0.2 10^3/uL (0.0-0.8); Eosinophils % 2.5 %; Hematocrit 33.9 % (42.0-52.0); Hemoglobin 10.3 g/dL (11.7-16.6); Lymphocytes # 1.9 10^3/uL (0.8-4.8); Lymphocytes % 28.1 %; Mean Corpuscular HGB Conc 30.4 g/dL (30.0-36.0); Mean Corpuscular Hemoglobin 29.3 pg (28.0-34.0); Mean Corpuscular Volume 96.6 fL (80-94); Mean Platelet Volume 10.5 fL (7.4-10.4); Monocytes # 0.7 10^3/uL (0.2-0.9); Monocytes % 10.3 %; Neutrophils # 4.02 10^3/uL (1.8-7.7); Neutrophils % 58.4 %; Nucleated Red Blood Cells % 0 %; Platelet Count 166 10^3/cmm (130-400); Red Blood Count 3.51 10^6/uL (4.1-5.3); White Blood Count 6.9 10^3/uL (4.0-10.0)
[2020-04-07] MEDS: octreotide LAR depot 20 mg Kit 40 MG IM (14:55)
[2020-04-07 15:31] LABS: Iron 40 ug/dL (59-158); Percent Saturation 15.8 % (20-50); Total Iron Binding Capacity 252 mcg/dl; Unsaturated Iron Binding 212 ug/dL (112-347)
== END 2020-04-07 05:58 | disposition home or self-care (01) ==
PROVIDERS: PCP Family Medicine; Visit Provider Internal Medicine Medical Oncology
DX: C61 Malignant neoplasm of prostate (principal); C7A.019 Malignant carcinoid tumor of the small intestine, unspecified portion; C7B.02 Secondary carcinoid tumors of liver; C7B.04 Secondary carcinoid tumors of peritoneum; C7B.09 Secondary carcinoid tumors of other sites; D50.9 Iron deficiency anemia, unspecified; Z79.890 Hormone replacement therapy
CPT/HCPCS: 83540; 83550; 85025; 96365; 96372; J1439; J2353

== ENCOUNTER 2020-04-14 06:12 | Outpatient (CLI) | payer MEDICARE, OTHER, BC, SELFPAY ==
[2020-04-14] MEDS: ferric carboxy (IVPB) 750 MG in sodium chloride 0.9% (100 ml) 100 ML 345 MG IV (12:10)
== END 2020-04-14 06:13 | disposition home or self-care (01) ==
LOC: ONCMED 06:14
PROVIDERS: PCP Family Medicine; Visit Provider Internal Medicine Medical Oncology
DX: D50.9 Iron deficiency anemia, unspecified (principal)
CPT/HCPCS: 96365; J1439

== ENCOUNTER 2020-05-11 11:30 | Outpatient (CLI) | payer MEDICARE, OTHER, BC, SELFPAY ==
[2020-05-11] MEDS: octreotide LAR depot 20 mg Kit 40 MG IM (12:45)
== END 2020-05-11 11:31 | disposition home or self-care (01) ==
PROVIDERS: PCP Family Medicine; Visit Provider Internal Medicine Medical Oncology
DX: C61 Malignant neoplasm of prostate (principal); D50.9 Iron deficiency anemia, unspecified; Z79.890 Hormone replacement therapy
CPT/HCPCS: 96372; J2353

== ENCOUNTER 2020-06-16 14:19 | Outpatient (CLI) | payer MEDICARE, OTHER, BC, SELFPAY ==
[2020-06-16 15:01] LABS: Basophils # 0.1 10^3/uL (0.0-0.1); Basophils % 0.7 %; Eosinophils # 0.1 10^3/uL (0.0-0.8); Eosinophils % 1.9 %; Hematocrit 39.7 % (42.0-52.0); Hemoglobin 12.9 g/dL (11.7-16.6); Lymphocytes # 2.5 10^3/uL (0.8-4.8); Lymphocytes % 33.5 %; Mean Corpuscular HGB Conc 32.5 g/dL (30.0-36.0); Mean Corpuscular Hemoglobin 31.3 pg (28.0-34.0); Mean Corpuscular Volume 96.4 fL (80-94); Mean Platelet Volume 11.3 fL (7.4-10.4); Monocytes # 0.6 10^3/uL (0.2-0.9); Monocytes % 8.1 %; Neutrophils # 4.08 10^3/uL (1.8-7.7); Neutrophils % 55.7 %; Nucleated Red Blood Cells % 0 %; Platelet Count 192 10^3/cmm (130-400); Red Blood Count 4.12 10^6/uL (4.1-5.3); Red Cell Distribution Width 16.6 % (12.1-15.1); White Blood Count 7.3 10^3/uL (4.0-10.0)
[2020-06-16 15:21] LABS: Alanine Aminotransferase 27 U/L (0-41); Albumin Level 4.4 g/dL (3.5-5.2); Alkaline Phosphatase 143 IU/L (40-130); Anion Gap 14.5 (5-19); Aspartate Amino Transferase 32 U/L (0-40); Blood Urea Nitrogen 17 mg/dL (8-23); Calcium 9.1 mg/dL (8.5-10.5); Carbon Dioxide 20 mmol/L (22-29); Chloride 110 mmol/L (98-107); Globulin 3.2 g/dL (1.3-4.6); Glucose 101 mg/dL (65-115); Osmolality Calculated 294 mOsm/kg (285-295); Potassium 3.5 mmol/L (3.5-5.1); Sodium 141 mmol/L (136-145); Total Bilirubin 0.6 mg/dL (0.15-1.2); Total Protein 7.6 g/dL (6.6-8.7)
[2020-06-20 17:22] LABS: Chromogranin A 376 ng/mL (25-140)
[2020-06-21 16:42] LABS: Serotonin Whole Blood 136 ng/mL (56-244)
== END 2020-06-16 14:20 | disposition home or self-care (01) ==
PROVIDERS: PCP Family Medicine; Visit Provider Internal Medicine Medical Oncology
DX: C61 Malignant neoplasm of prostate (principal); C7A.019 Malignant carcinoid tumor of the small intestine, unspecified portion; C7B.02 Secondary carcinoid tumors of liver; C7B.04 Secondary carcinoid tumors of peritoneum; C7B.09 Secondary carcinoid tumors of other sites; D50.9 Iron deficiency anemia, unspecified
CPT/HCPCS: 36415; 80053; 84260; 85025; 86316

== ENCOUNTER 2020-06-18 05:57 | Outpatient (CLI) | payer MEDICARE, OTHER, BC, SELFPAY ==
[2020-06-18] MEDS: octreotide LAR depot 20 mg Kit 40 MG IM (09:06)
[2020-06-18 09:46] LABS: Magnesium 1.6 mg/dL (1.7-2.3); Thyroid Stimulating Hormone 1.87 uIU/mL (0.27-4.20)
--- NOTE | 2020-06-18 16:50 | ONC FU_ITS ---
Dr. Guido Patient Follow-Up Note Patient: Chilo Pacheco Unit #: [id number]: 1950 Dicatated By: Yifan Guido M.D.Date of Visit:Jun 18, 2020 Onc Med Follow-up/Prog Note Chief Complaint: Metastatic carcinoid. History of Present Illness: This is a 70 year-old man with metastatic carcinoid. According to the available records, he was admitted to the hospital in December 2008 with atrial fibrillation. At that time he was having abdominal pain and he was found on CT scan to have multiple serosal and omental lesions. Ultrasound-guided biopsy was consistent with a carcinoid tumor. He subsequently underwent an exploratory laparotomy and debulking procedure. The primary tumor apparently was in the small intestine. The procedure included omentectomy, appendectomy, and cholecystectomy. According to the patient, metastatic lesions also were removed from the liver, kidney, and lung. He subsequently had chronic diarrhea, and he began treatment with monthly injections of Sandostatin LAR. His clinical course subsequent to his debulking surgery was complicated by an episode of bowel obstruction in 2011. This apparently was due to sigmoid diverticulitis and not to his malignancy. At that time he underwent sigmoid resection with colostomy placement, but the ostomy was later reversed. In 2012 he underwent radical prostatectomy for prostate cancer. I had seen him initially in May 2014. He continued on monthly injections of Sandostatin LAR. During follow-up, I also added short-acting octreotide injections to use as needed as well as tincture of opium to use as needed for the diarrhea. Beginning in August 2015 the Sandostatin LAR dosage was increased to 40 mg. In October 2016 he began a trial of therapy with telotristat for his carcinoid related diarrhea. It was eventually stopped because of side effects, mainly abdominal pain. Restaging CT of the chest, abdomen, and pelvis on 12/11/2017 showed stable postsurgical changes of right lower lobectomy with no suspicious pulmonary nodules noted. Postsurgical changes throughout the abdomen also appeared stable. There is no metastatic disease noted in the liver, and a left adrenal adenoma appeared stable. Multiple areas of dilatation and narrowing of the colon had a similar appearance to prior studies. Overall, there was no evidence of disease progression. He continued his monthly Sandostatin LAR. During that time, he also had recurrent iron deficiency anemia. He required parenteral iron replacement on multiple occasions including March 2016, May 2017, April 2018, October 2018, and June 2019. At his follow-up visit on 08/13/2019 he continued to complain of weakness and shortness of breath. He was having more abdominal cramping and diarrhea. He also complained of joint aches and muscle cramps. His restaging CT scans on 08/14/2019 showed progression of mucosal thickening involving the ascending and transverse colon suggestive of postinflammatory or infectious process or neoplastic process. The anastomosis at the rectosigmoid junction appeared intact with no recurrent mass. There was a new, very small pericardial effusion. A well-circumscribed left adrenal mass measuring 2.7 cm appeared stable. There was mild hepatic steatosis. Calcifications were noted in the inferior right lobe of the liver, but there was no evidence of metastatic disease. Echocardiogram showed normal left ventricular systolic function with ejection fraction estimated at 60%. There was mild to moderate aortic valve regurgitation. The tricuspid valve appeared structurally normal. There was just a trace of tricuspid valve regurgitation. With those findings, he continued treatment with Sandostatin LAR 20 mg monthly. He had restarted treatment with telotristat for management of the diarrhea. He was again unable to tolerate it due to abdominal pain. During subsequent follow-up he continued to complain of weakness and shortness of breath. He had further parenteral iron replacement in January 2020 and in March 2020, but without significant improvement in his symptoms. During that time he also had follow-up with his informatica architect. A Lexiscan stress test on 03/06/2020 showed abnormal myocardial perfusion imaging with a medium sized area of mild ischemia in the anterior and anterior lateral mead. There was moderate cardiomegaly with overall decreased left ventricular systolic function with estimated ejection fraction 34%. The ejection fraction was noted to have declined compared to a prior study from September 2015. CT of the abdomen/pelvis on 03/09/2020 showed a 3.7 cm left adrenal nodule with CT characteristics consistent with benign adrenal nodule. A couple of nodular densities adjacent to the sigmoid colon resection were noted to have enlarged compared to previous studies. There is interval development of small bilateral pleural effusions. Narrowing of the colon the sigmoid anastomosis appeared unchanged. His other medical illnesses include hypertension, atrial fibrillation, GERD, obstructive sleep apnea, and depression. He also is known to have lumbar spinal canal stenosis, and he has been treated for gout. He underwent radical prostatectomy for prostate cancer in 2012. He had smoked in the past, but he quit almost 40 years ago. He has had just occasional alcohol use. INTERIM HISTORY: He is seen for a follow-up visit. He has been off Eliquis after is found to have heme positive stool back in February. He is seeing a surgeon for placement of a Watchman device for his atrial fibrillation. He continues to complain that his energy is not worth a hoot. His ECOG score is 2. His indicates that last week while they were vacation[place] of [place] he had an episode which she was staring off into space and nearly incoherent. She assumed it was due to dehydration. He came out of it on his own. His appetite generally has not been as good and he has not been eating as much. He has not had fever or night sweats. He has just very occasional flushing episodes. His breathing has been okay. He does not complain of cough. He has a dull ache in his chest off and on. He has nausea quite often and occasionally has acid reflux. He has a lot of gas, and he continues to complain of diarrhea despite regular use of Imodium. Bladder function has been okay. He has no significant joint or bone pain. He does have some headaches and he also complains of orthostatic disequilibrium. He has neuropathy pain in his feet, which has worsened significantly since he stopped taking gabapentin. By his 's description, it sounds as though he is having some cognitive dysfunction. Medications: Allopurinol 1 (300 mg) Tablet Oral daily, AmLODIPine Besylate 1 Tablet (of 20 mg) Oral b.i.d., Aspirin EC 1 (81 mg) Tablet, enteric coated Oral daily, [facility] Omeprazole 1 (20 mg) Tablet, enteric coated Oral b.i.d., Eliquis 1 Tablet (of 5 mg) Oral b.i.d., Gabapentin 1 (300 mg) Capsule Oral b.i.d., Imodium A-D (2 mg) Tablet Oral Take as Directed, Klor-Con M10 1 Tablet (of 10 meq) Tablet, controlled release Oral b.i.d., Loperamide-Simethicone Tablet Oral, Magnesium Oxide 1 (400 mg) Capsule Oral daily, Metoprolol Tartrate 1 Tablet (of 50 mg) Oral daily, Niacin ER 1 (500 mg) Tablet, controlled release Oral daily, SandoSTATIN LAR Depot 1 (40 mg) Intramuscular q 4 weeks, Sertraline HCl 1 Tablet (of 100 mg) Oral b.i.d. Allergies: Ativan and Darvon. Vital Signs: Performed on Jun 18, 2020 08:18 Height - 72.00 in Weight - 204 lbs (LOW) BSA - 2.15 sq.m BMI - 27.67 Temperature - 97.9 F (LOW) Pulse - 90 /min Respiration - 18 /min BP - 136/82 mm(hg) O2 Sat - 98 % Pain - 0 Fatigue - 9 Physical Examination: Constitutional - He appears somewhat weak generally, Eyes - Sclerae nonicteric. Conjunctivae clear, ENMT - No lesions noted in the oral cavity, Hematologic/Lymphatic - No cervical, clavicular, or axillary adenopathy, Respiratory - Lungs sound clear with some decrease in air movement bilaterally, Cardiovascular - Heart rhythm is irregular. There is a II/ systolic murmur. There is no gallop or rub noted, Abdomen - Mildly distended but soft. Liver and spleen are not enlarged. There is no abdominal mass or ascites noted and there is no inguinal adenopathy, Extremities - No edema, Neurologic - No focal neurologic deficits noted. Lab/Imaging: CBC shows hemoglobin 12.9 g, white blood cell count 7300, and platelet count 192,000. Comprehensive metabolic profile shows BUN 17 and creatinine 1.4 mg/dL. Alkaline phosphatase is slightly elevated at 143/130 IU/L. The bilirubin and the other liver enzymes are normal. Problem List: 1. Metastatic carcinoid of small intestine origin. He has been on treatment with Sandostatin LAR following debulking surgery in 2008. Thus far during followup there has been no documented progression of the carcinoid. 2. He underwent sigmoid colon resection for sigmoid diverticulitis with associated bowel obstruction in 2011. He has had chronic diarrhea, though it is uncertain to what extent it may be due to the carcinoid versus after effects of his surgeries. 3. He was found to have iron deficiency anemia, most likely due to combination of GI blood loss and inadequate oral iron absorption. 4. He underwent radical prostatectomy for prostate cancer in 2012. He has had evidence of biochemical recurrence. 5. Hypertension. 6. Atrial fibrillation. 7. GERD. 8. Obstructive sleep apnea. 9 Degenerative disease of the spine with lumbar spinal canal stenosis. 10. History of gout. 11. Depression. Problems Addressed with this Encounter and Plan: 1. Patient with metastatic carcinoid of small intestine origin. He has been on treatment with Sandostatin LAR following debulking surgery in 2008. In 2011 he underwent sigmoid colon resection for sigmoid diverticulitis with associated bowel obstruction in 2011. During follow-up there has been no documented progression of the carcinoid. He has had chronic diarrhea, though it is uncertain to what extent it may be due to the carcinoid versus after effects of his surgeries. The management of his diarrhea has been problematic. It has persisted despite regular use of Lomotil or Imodium. He unfortunately was not able to tolerate telotristat. At this point he will continue the Lomotil, but I will try adding colestipol 2 or 3 times a day. He will be given his regularly scheduled Sandostatin LAR 40 mg by intramuscular injection. I also will restart the short acting octreotide injections to be used as needed. I will see him again in 1 month. 2. He has had recurrent episodes of iron deficiency anemia. This is most likely combination of inadequate oral iron absorption and GI blood loss. He has responded adequately to parenteral iron when needed. 3. He has ongoing complaints of weakness/fatigue and shortness of breath. This is likely to be multifactorial, and it is uncertain to what extent the symptoms may be due to his cardiomyopathy, to anemia/iron deficiency, or to problems associated with the underlying malignancy. 4. He underwent radical prostatectomy for prostate cancer in 2012, and he has evidence of biochemical recurrence. This is being monitored by his urologist. Signed By: Yifan Guido M.D. <<Signature on File>>
[2020-06-21 16:11] LABS: 24 Hour Urine Volume 900 mL
== END 2020-06-18 05:58 | disposition home or self-care (01) ==
LOC: ONCMED 06:00
PROVIDERS: PCP Family Medicine; Visit Provider Internal Medicine Medical Oncology
DX: C61 Malignant neoplasm of prostate (principal); C7A.019 Malignant carcinoid tumor of the small intestine, unspecified portion; C7B.02 Secondary carcinoid tumors of liver; C7B.04 Secondary carcinoid tumors of peritoneum; C7B.09 Secondary carcinoid tumors of other sites; D50.0 Iron deficiency anemia secondary to blood loss (chronic); I10 Essential (primary) hypertension; I48.20 Chronic atrial fibrillation, unspecified; K21.9 Gastro-esophageal reflux disease without esophagitis; G47.33 Obstructive sleep apnea (adult) (pediatric); M51.36 Other intervertebral disc degeneration, lumbar region; M48.061 Spinal stenosis, lumbar region without neurogenic claudication; M10.9 Gout, unspecified; F32.9 Major depressive disorder, single episode, unspecified; Z79.899 Other long term (current) drug therapy
CPT/HCPCS: 83497; 83735; 84443; 96372; 99214; J2353

== ENCOUNTER 2020-07-22 08:45 | Outpatient (CLI) | payer MEDICARE, OTHER, BC, SELFPAY ==
[2020-07-22 09:32] LABS: Basophils # 0.1 10^3/uL (0.0-0.1); Basophils % 0.9 %; Eosinophils # 0.2 10^3/uL (0.0-0.8); Eosinophils % 3.9 %; Hematocrit 38.6 % (42.0-52.0); Hemoglobin 12.4 g/dL (11.7-16.6); Lymphocytes # 1.7 10^3/uL (0.8-4.8); Mean Corpuscular HGB Conc 32.1 g/dL (30.0-36.0); Mean Corpuscular Hemoglobin 31.6 pg (28.0-34.0); Mean Corpuscular Volume 98.5 fL (80-94); Mean Platelet Volume 10.8 fL (7.4-10.4); Monocytes # 0.3 10^3/uL (0.2-0.9); Monocytes % 5.8 %; Neutrophils # 3.43 10^3/uL (1.8-7.7); Neutrophils % 60.2 %; Nucleated Red Blood Cells % 0 %; Platelet Count 187 10^3/cmm (130-400); Red Blood Count 3.92 10^6/uL (4.1-5.3); Red Cell Distribution Width 17.1 % (12.1-15.1); White Blood Count 5.7 10^3/uL (4.0-10.0)
[2020-07-22 09:44] LABS: Alanine Aminotransferase 20 U/L (0-41); Alkaline Phosphatase 140 IU/L (40-130); Anion Gap 11.8 (5-19); Aspartate Amino Transferase 28 U/L (0-40); Blood Urea Nitrogen 16 mg/dL (8-23); Calcium 8.1 mg/dL (8.5-10.5); Carbon Dioxide 21 mmol/L (22-29); Chloride 113 mmol/L (98-107); Ferritin 194 ng/mL (30-400); Globulin 2.7 g/dL (1.3-4.6); Glucose 129 mg/dL (65-115); Homocysteine 12.11; Iron 85 ug/dL (59-158); Osmolality Calculated 297 mOsm/kg (285-295); Percent Saturation 35.2 % (20-50); Potassium 3.8 mmol/L (3.5-5.1); Sodium 142 mmol/L (136-145); Total Bilirubin 0.5 mg/dL (0.15-1.2); Total Iron Binding Capacity 241 mcg/dl; Total Protein 6.7 g/dL (6.6-8.7); Unsaturated Iron Binding 156 ug/dL (112-347)
[2020-07-22 09:56] LABS: Vitamin B12 706 pg/mL (232-1245)
[2020-07-22 10:25] LABS: Folate Level 8.7 ng/mL (4.5-32.2)
[2020-07-22] MEDS: octreotide LAR depot 20 mg Kit 40 MG IM (10:58)
--- NOTE | 2020-07-22 12:02 | ONC FU_ITS ---
Dr. Guido Patient Follow-Up Note Patient: Chilo Pacheco Unit #: [id number]: [id number] Dicatated By: Yifan Guido M.D.Date of Visit:July 22, 2020 Onc Med Follow-up/Prog Note Chief Complaint: Metastatic carcinoid. History of Present Illness: This is a 70 year-old man with metastatic carcinoid. According to the available records, he was admitted to the hospital in December 2008 with atrial fibrillation. At that time he was having abdominal pain and he was found on CT scan to have multiple serosal and omental lesions. Ultrasound-guided biopsy was consistent with a carcinoid tumor. He subsequently underwent an exploratory laparotomy and debulking procedure. The primary tumor apparently was in the small intestine. The procedure included omentectomy, appendectomy, and cholecystectomy. According to the patient, metastatic lesions also were removed from the liver, kidney, and lung. He subsequently had chronic diarrhea, and he began treatment with monthly injections of Sandostatin LAR. His clinical course subsequent to his debulking surgery was complicated by an episode of bowel obstruction in 2011. This apparently was due to sigmoid diverticulitis and not to his malignancy. At that time he underwent sigmoid resection with colostomy placement, but the ostomy was later reversed. In 2012 he underwent radical prostatectomy for prostate cancer. I had seen him initially in May 2014. He continued on monthly injections of Sandostatin LAR. During follow-up, I also added short-acting octreotide injections to use as needed as well as tincture of opium to use as needed for the diarrhea. Beginning in August 2015 the Sandostatin LAR dosage was increased to 40 mg. In October 2016 he began a trial of therapy with telotristat for his carcinoid related diarrhea. It was eventually stopped because of side effects, mainly abdominal pain. Restaging CT of the chest, abdomen, and pelvis on 12/11/2017 showed stable postsurgical changes of right lower lobectomy with no suspicious pulmonary nodules noted. Postsurgical changes throughout the abdomen also appeared stable. There was no metastatic disease noted in the liver, and a left adrenal adenoma appeared stable. Multiple areas of dilatation and narrowing of the colon had a similar appearance to prior studies. Overall, there was no evidence of disease progression. He continued his monthly Sandostatin LAR. During that time, he also had recurrent iron deficiency anemia. He required parenteral iron replacement on multiple occasions including March 2016, May 2017, April 2018, October 2018, and June 2019. At his follow-up visit on 08/13/2019 he continued to complain of weakness and shortness of breath. He was having more abdominal cramping and diarrhea. He also complained of joint aches and muscle cramps. His restaging CT scans on 08/14/2019 showed progression of mucosal thickening involving the ascending and transverse colon suggestive of postinflammatory or infectious process or neoplastic process. The anastomosis at the rectosigmoid junction appeared intact with no recurrent mass. There was a new, very small pericardial effusion. A well-circumscribed left adrenal mass measuring 2.7 cm appeared stable. There was mild hepatic steatosis. Calcifications were noted in the inferior right lobe of the liver, but there was no evidence of metastatic disease. Echocardiogram showed normal left ventricular systolic function with ejection fraction estimated at 60%. There was mild to moderate aortic valve regurgitation. The tricuspid valve appeared structurally normal. There was just a trace of tricuspid valve regurgitation. With those findings, he continued treatment with Sandostatin LAR 40 mg monthly. He had restarted treatment with telotristat for management of the diarrhea. He was again unable to tolerate it due to abdominal pain. During subsequent follow-up he continued to complain of weakness and shortness of breath. He had further parenteral iron replacement in January 2020 and in March 2020, but without significant improvement in his symptoms. He was found to have heme positive stool, and he was taken off apixaban. During that time he also had follow-up with his public health assistant. A Lexiscan stress test on 03/06/2020 showed abnormal myocardial perfusion imaging with a medium sized area of mild ischemia in the anterior and anterior lateral mead. There was moderate cardiomegaly with overall decreased left ventricular systolic function with estimated ejection fraction 34%. The ejection fraction was noted to have declined compared to a prior study from September 2015. CT of the abdomen/pelvis on 03/09/2020 showed a 3.7 cm left adrenal nodule with CT characteristics consistent with benign adrenal nodule. A couple of nodular densities adjacent to the sigmoid colon resection were noted to have enlarged compared to previous studies. There was interval development of small bilateral pleural effusions. Narrowing of the colon the sigmoid anastomosis appeared unchanged. His other medical illnesses include hypertension, atrial fibrillation, GERD, obstructive sleep apnea, and depression. He also is known to have lumbar spinal canal stenosis, and he has been treated for gout. He underwent radical prostatectomy for prostate cancer in 2012. He had smoked in the past, but he quit almost 40 years ago. He has had just occasional alcohol use. INTERIM HISTORY: He is seen for a scheduled visit. Following his last visit, he began a trial of therapy with colestipol for his diarrhea. He has been taking it 3 times a day, and it has been helping. He still has loose stools, but not as frequently. He has occasional flushing spells at night. He continues to have limited activity tolerance. He tends to get pretty exhausted and shaky after 3 to 4 hours of working. His ECOG score is 1. His appetite has been okay. He does not have fever or night sweats. He has had some difficulty swallowing pills. He does not complain of cough. He does get short of breath with activity. He has not been having chest pain. He is scheduled to go to [place] on the of this month for placement of a Watchman device. He has occasional episodes of nausea. He has been having a little more heartburn lately. Bladder function remains adequate. His urination is sometimes frequent. He sometimes has soreness in his joints. He does not complain of headache. He does tend to have some dysequilibrium, particularly when he is fatigued. He has numbness/tingling in his legs and feet, especially at night. He has been having some depression. Medications: Allopurinol 1 (300 mg) Tablet Oral daily, AmLODIPine Besylate 1 Tablet (of 20 mg) Oral b.i.d., Aspirin EC 1 (81 mg) Tablet, enteric coated Oral daily, [facility] Omeprazole 1 (20 mg) Tablet, enteric coated Oral b.i.d., Eliquis 1 Tablet (of 5 mg) Oral b.i.d., Gabapentin 1 (300 mg) Capsule Oral b.i.d., Imodium A-D (2 mg) Tablet Oral Take as Directed, Klor-Con M10 1 Tablet (of 10 meq) Tablet, controlled release Oral b.i.d., Loperamide-Simethicone Tablet Oral, Magnesium Oxide 1 (400 mg) Capsule Oral daily, Metoprolol Tartrate 1 Tablet (of 50 mg) Oral daily, Niacin ER 1 (500 mg) Tablet, controlled release Oral daily, SandoSTATIN LAR Depot 1 (40 mg) Intramuscular q 4 weeks, Sertraline HCl 1 Tablet (of 100 mg) Oral b.i.d. Allergies: Ativan and Darvon. Vital Signs: Performed on July 22, 2020 11:47 Height - 72.00 in Weight - 206 lbs (HIGH) BSA - 2.16 sq.m BMI - 27.94 Temperature - 98.0 F (LOW) Pulse - 63 /min Respiration - 18 /min BP - 123/79 mm(hg) O2 Sat - 97 % Pain - 0 Fatigue - 8 Physical Examination: Constitutional - He appears somewhat weak generally, Eyes - Sclerae nonicteric. Conjunctivae clear, ENMT - No lesions noted in the oral cavity, Hematologic/Lymphatic - No cervical, clavicular, or axillary adenopathy, Respiratory - Lungs sound clear with some decrease in air movement bilaterally, Cardiovascular - Heart rhythm is irregular. There is a II/ systolic murmur. There is no gallop or rub noted, Abdomen - Mildly distended but soft. Liver and spleen are not enlarged. There is no abdominal mass or ascites noted and there is no inguinal adenopathy, Extremities - Slight edema, Neurologic - No focal neurologic deficits noted. Lab/Imaging: Test performed on July 22, 2020 09:03 Ferritin 194 ng/mL Folate, Serum 8.7 ng/mL Homocysteine 12.11 umol/L Iron 85 mcg/dL Sodium 142 mmol/L Vitamin B12 706 pg/mL Iron Binding Capacity (TIBC) 241 mcg/dl Potassium 3.8 mmol/L % Iron Saturation 35.2 % Chloride 113 mmol/L CO2 21 mmol/L UIBC 156 mcg/dL Anion Gap 11.8 BUN 16 mg/dL Creatinine 1.3 mg/dL Cr Clearance (Est) 67.8800 mL/min Glucose 129 mg/dL Osmolality - Calculated 297 mOsm/kg Calcium 8.1 mg/dL Protein, Total 6.7 g/dL Albumin 4.0 g/dL Globulin 2.7 g/dL Bilirubin, Total 0.5 mg/dL ALT (SGPT) 20 U/L AST (SGOT) 28 U/L Alkaline Phosphatase 140 IU/L WBC 5.7 10 3/uL RBC 3.92 10 6/uL HGB 12.4 g/dL HCT 38.6 % MCV 98.5 fL MCH 31.6 pg MCHC 32.1 g/dL RDW 17.1 % Platelet Count 187 10 3/cmm MPV 10.8 fL Neutrophils 3.43 10 3/uL Lymphocytes 1.7 10 3/uL Monocytes 0.3 10 3/uL Eosinophils 0.2 10 3/uL Basophils 0.1 10 3/uL Neutrophil % 60.2 % Lymphocyte % 29.0 % Monocyte % 5.8 % Eosinophil % 3.9 % Basophils % 0.9 % NRBC % 0 % Problem List: 1. Metastatic carcinoid of small intestine origin. He has been on treatment with Sandostatin LAR following debulking surgery in 2008. Thus far during followup there has been no documented progression of the carcinoid. 2. He underwent sigmoid colon resection for sigmoid diverticulitis with associated bowel obstruction in 2011. He has had chronic diarrhea, though it is uncertain to what extent it may be due to the carcinoid versus after effects of his surgeries. 3. He was found to have iron deficiency anemia, most likely due to combination of GI blood loss and inadequate oral iron absorption. 4. He underwent radical prostatectomy for prostate cancer in 2012. He has had evidence of biochemical recurrence. 5. Hypertension. 6. Atrial fibrillation. 7. GERD. 8. Obstructive sleep apnea. 9. Degenerative disease of the spine with lumbar spinal canal stenosis. 10. History of gout. 11. Depression. Problems Addressed with this Encounter and Plan: 1. Patient with metastatic carcinoid of small intestine origin. He has been on treatment with Sandostatin LAR following debulking surgery in 2008. In 2011 he underwent sigmoid colon resection for sigmoid diverticulitis with associated bowel obstruction in 2011. During follow-up there has been no documented progression of the carcinoid. He has had chronic diarrhea, though I have been uncertain as to what extent it may be due to the carcinoid versus after effects of his surgeries. The management of his diarrhea has been problematic. It has persisted despite regular use of Lomotil or Imodium, and he was not able to tolerate telotristat. He currently is getting some benefit with colestipol, which he has been taking 3 times a day. His carcinoid symptoms are otherwise adequately managed. He will continue treatment with Sandostatin LAR 40 mg by intramuscular injection monthly. I will see him again in 3 months. 2. He has had recurrent episodes of iron deficiency anemia. This is most likely combination of inadequate oral iron absorption and GI blood loss. It has responded adequately to parenteral iron replacement. His hemoglobin currently is stable with normal transferrin saturation. 3. He underwent radical prostatectomy for prostate cancer in 2012, and he has evidence of biochemical recurrence. This is being monitored by his urologist. Signed By: Yifan Guido M.D. <<Signature on File>>
[2020-07-28 21:23] LABS: Methylmalonic Acid 159 nmol/L (87-318)
== END 2020-07-22 08:46 | disposition home or self-care (01) ==
PROVIDERS: PCP Family Medicine; Visit Provider Internal Medicine Medical Oncology
DX: C7A.019 Malignant carcinoid tumor of the small intestine, unspecified portion (principal); C7B.02 Secondary carcinoid tumors of liver; C7B.04 Secondary carcinoid tumors of peritoneum; C7B.09 Secondary carcinoid tumors of other sites; D50.9 Iron deficiency anemia, unspecified; I10 Essential (primary) hypertension; I48.20 Chronic atrial fibrillation, unspecified; K21.9 Gastro-esophageal reflux disease without esophagitis; G47.33 Obstructive sleep apnea (adult) (pediatric); M51.36 Other intervertebral disc degeneration, lumbar region; M48.061 Spinal stenosis, lumbar region without neurogenic claudication; M10.9 Gout, unspecified; F32.9 Major depressive disorder, single episode, unspecified; Z79.818 Long term (current) use of other agents affecting estrogen receptors and estrogen levels; Z79.899 Other long term (current) drug therapy
CPT/HCPCS: 36415; 80053; 82607; 82728; 82746; 83090; 83540; 83550; 83921; 85025; 96372; 99214; J2353

== ENCOUNTER 2020-08-24 10:19 | Outpatient (CLI) | payer MEDICARE, OTHER, BC, SELFPAY ==
[2020-08-24] MEDS: octreotide LAR depot 20 mg Kit 40 MG IM (12:40)
== END 2020-08-24 10:20 | disposition home or self-care (01) ==
LOC: ONCMED 10:23
PROVIDERS: PCP Family Medicine; Visit Provider Internal Medicine Medical Oncology
DX: C7A.019 Malignant carcinoid tumor of the small intestine, unspecified portion (principal); C7B.00 Secondary carcinoid tumors, unspecified site; D50.9 Iron deficiency anemia, unspecified; Z79.818 Long term (current) use of other agents affecting estrogen receptors and estrogen levels; Z79.899 Other long term (current) drug therapy
CPT/HCPCS: 96372; J2353

== ENCOUNTER 2020-09-23 08:27 | Outpatient (CLI) | payer MEDICARE, OTHER, BC, SELFPAY ==
[2020-09-23] MEDS: octreotide LAR depot 20 mg Kit 40 MG IM (08:58)
== END 2020-09-23 08:28 | disposition home or self-care (01) ==
LOC: ONCMED 08:31
PROVIDERS: PCP Family Medicine; Visit Provider Internal Medicine Medical Oncology
DX: C7A.025 Malignant carcinoid tumor of the sigmoid colon (principal); C7B.09 Secondary carcinoid tumors of other sites; D50.0 Iron deficiency anemia secondary to blood loss (chronic); Z79.899 Other long term (current) drug therapy
CPT/HCPCS: 96372; J2353

== ENCOUNTER 2020-10-26 10:24 | Outpatient (CLI) | payer MEDICARE, OTHER, BC, SELFPAY ==
[2020-10-26 10:59] LABS: Basophils # 0.1 10^3/uL (0.0-0.1); Basophils % 0.9 %; Eosinophils # 0.2 10^3/uL (0.0-0.8); Eosinophils % 2.3 %; Hematocrit 36.3 % (42.0-52.0); Hemoglobin 11.2 g/dL (11.7-16.6); Lymphocytes # 1.7 10^3/uL (0.8-4.8); Lymphocytes % 25.9 %; Mean Corpuscular HGB Conc 30.9 g/dL (30.0-36.0); Mean Corpuscular Hemoglobin 31.5 pg (28.0-34.0); Mean Corpuscular Volume 102.3 fL (80-94); Mean Platelet Volume 10.2 fL (7.4-10.4); Monocytes # 0.5 10^3/uL (0.2-0.9); Monocytes % 7.3 %; Neutrophils # 4.05 10^3/uL (1.8-7.7); Neutrophils % 63.4 %; Nucleated Red Blood Cells % 0 %; Platelet Count 172 10^3/cmm (130-400); Red Blood Count 3.55 10^6/uL (4.1-5.3); Red Cell Distribution Width 14.8 % (12.1-15.1); White Blood Count 6.4 10^3/uL (4.0-10.0)
[2020-10-26 11:24] LABS: Alanine Aminotransferase 14 U/L (0-41); Albumin Level 4.1 g/dL (3.5-5.2); Alkaline Phosphatase 146 IU/L (40-130); Anion Gap 15.2 (5-19); Aspartate Amino Transferase 24 U/L (0-40); Blood Urea Nitrogen 20 mg/dL (8-23); Calcium 8.5 mg/dL (8.5-10.5); Carbon Dioxide 19 mmol/L (22-29); Chloride 112 mmol/L (98-107); Glucose 127 mg/dL (65-115); Iron 63 ug/dL (59-158); Osmolality Calculated 298 mOsm/kg (285-295); Percent Saturation 21.6 % (20-50); Potassium 4.2 mmol/L (3.5-5.1); Sodium 142 mmol/L (136-145); Total Bilirubin 0.3 mg/dL (0.15-1.2); Total Iron Binding Capacity 291 mcg/dl; Total Protein 7.1 g/dL (6.6-8.7); Unsaturated Iron Binding 228 ug/dL (112-347)
[2020-10-26] MEDS: octreotide LAR depot 20 mg Kit 40 MG IM (14:05)
[2020-10-26] MEDS: ferric carboxy (IVPB) 750 MG in sodium chloride 0.9% (100 ml) 100 ML 460 MG IV (14:15)
--- NOTE | 2020-10-27 06:44 | ONC FU_ITS ---
Dr. Guido Patient Follow-Up Note Patient: Chilo Pacheco Unit #: [id number]: 1950 Dicatated By: Yifan Guido M.D.Date of Visit:Oct 26, 2020 Onc Med Follow-up/Prog Note Chief Complaint: Metastatic carcinoid. History of Present Illness: This is a 70 year-old man with metastatic carcinoid. According to the available records, he was admitted to the hospital in December 2008 with atrial fibrillation. At that time he was having abdominal pain and he was found on CT scan to have multiple serosal and omental lesions. Ultrasound-guided biopsy was consistent with a carcinoid tumor. He subsequently underwent an exploratory laparotomy and debulking procedure. The primary tumor apparently was in the small intestine. The procedure included omentectomy, appendectomy, and cholecystectomy. According to the patient, metastatic lesions also were removed from the liver, kidney, and lung. He subsequently had chronic diarrhea, and he began treatment with monthly injections of Sandostatin LAR. His clinical course subsequent to his debulking surgery was complicated by an episode of bowel obstruction in 2011. This apparently was due to sigmoid diverticulitis and not to his malignancy. At that time he underwent sigmoid resection with colostomy placement, but the ostomy was later reversed. In 2012 he underwent radical prostatectomy for prostate cancer. I had seen him initially in May 2014. He continued on monthly injections of Sandostatin LAR. During follow-up, I also added short-acting octreotide injections to use as needed as well as tincture of opium to use as needed for the diarrhea. Beginning in August 2015 the Sandostatin LAR dosage was increased to 40 mg. In October 2016 he began a trial of therapy with telotristat for his carcinoid related diarrhea. It was eventually stopped because of side effects, mainly abdominal pain. Restaging CT of the chest, abdomen, and pelvis on 12/11/2017 showed stable postsurgical changes of right lower lobectomy with no suspicious pulmonary nodules noted. Postsurgical changes throughout the abdomen also appeared stable. There was no metastatic disease noted in the liver, and a left adrenal adenoma appeared stable. Multiple areas of dilatation and narrowing of the colon had a similar appearance to prior studies. Overall, there was no evidence of disease progression. He continued his monthly Sandostatin LAR. During that time, he also had recurrent iron deficiency anemia. He required parenteral iron replacement on multiple occasions including March 2016, May 2017, April 2018, October 2018, and June 2019. At his follow-up visit on 08/13/2019 he continued to complain of weakness and shortness of breath. He was having more abdominal cramping and diarrhea. He also complained of joint aches and muscle cramps. His restaging CT scans on 08/14/2019 showed progression of mucosal thickening involving the ascending and transverse colon suggestive of postinflammatory or infectious process or neoplastic process. The anastomosis at the rectosigmoid junction appeared intact with no recurrent mass. There was a new, very small pericardial effusion. A well-circumscribed left adrenal mass measuring 2.7 cm appeared stable. There was mild hepatic steatosis. Calcifications were noted in the inferior right lobe of the liver, but there was no evidence of metastatic disease. Echocardiogram showed normal left ventricular systolic function with ejection fraction estimated at 60%. There was mild to moderate aortic valve regurgitation. The tricuspid valve appeared structurally normal. There was just a trace of tricuspid valve regurgitation. With those findings, he continued treatment with Sandostatin LAR 40 mg monthly. He had restarted treatment with telotristat for management of the diarrhea. He was again unable to tolerate it due to abdominal pain. During subsequent follow-up he continued to complain of weakness and shortness of breath. He had further parenteral iron replacement in January 2020 and in March 2020, but without significant improvement in his symptoms. He was found to have heme positive stool, and he was taken off apixaban. 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 A Lexiscan stress test on 03/06/2020 showed abnormal myocardial perfusion imaging with a medium sized area of mild ischemia in the anterior and anterior lateral mead. There was moderate cardiomegaly with overall decreased left ventricular systolic function with estimated ejection fraction 34%. The ejection fraction was noted to have declined compared to a prior study from September 2015. CT of the abdomen/pelvis on 03/09/2020 showed a 3.7 cm left adrenal nodule with CT characteristics consistent with benign adrenal nodule. A couple of nodular densities adjacent to the sigmoid colon resection were noted to have enlarged compared to previous studies. There was interval development of small bilateral pleural effusions. Narrowing of the colon the sigmoid anastomosis appeared unchanged. With those findings he continued his monthly Sandostatin LAR injections. His other medical illnesses include hypertension, atrial fibrillation, chronic kidney disease, GERD, obstructive sleep apnea, and depression. He was found to have evidence of cardiomyopathy by myocardial perfusion imaging in February 2020. He also is known to have lumbar spinal canal stenosis, and he has been treated for gout. He underwent radical prostatectomy for prostate cancer in 2012, and he has had evidence of biochemical recurrence. He had smoked in the past, but he quit almost 40 years ago. He has had just occasional alcohol use. INTERIM HISTORY: He is seen for a scheduled visit. He has not been feeling very good. His most significant complaint is that he has been having so much diarrhea. He says he has at least 5 bowel movements every morning and he then continues to have further diarrhea throughout the day, depending on what he eats. He is really not getting any significant benefit with colestipol. He has been taking Imodium twice a day. He also continues to have significant fatigue, and his activity is limited. ECOG score is 2. His appetite is still okay. He is not had fever. He has very occasional flushing spells. He has had some sore throat and some difficulty swallowing. He also has pain in his mid chest area when he swallows, and he has some associated heartburn. He has just occasional cough. He does not complain of shortness of breath. Bladder function has been okay. He has back pain. He also complains that he gets muscle cramps in his hands and legs. He does not complain of headache. He has some difficulty with balance. He has some numbness/tingling in his toes. Medications: Allopurinol 1 (300 mg) Tablet Oral daily, AmLODIPine Besylate 1 Tablet (of 20 mg) Oral b.i.d., Aspirin EC 1 (81 mg) Tablet, enteric coated Oral daily, [facility] Omeprazole 1 (20 mg) Tablet, enteric coated Oral b.i.d., Eliquis 1 Tablet (of 5 mg) Oral b.i.d., Gabapentin 1 (300 mg) Capsule Oral b.i.d., Imodium A-D (2 mg) Tablet Oral Take as Directed, Klor-Con M10 1 Tablet (of 10 meq) Tablet, controlled release Oral b.i.d., Loperamide-Simethicone Tablet Oral, Magnesium Oxide 1 (400 mg) Capsule Oral daily, Metoprolol Tartrate 1 Tablet (of 50 mg) Oral daily, Niacin ER 1 (500 mg) Tablet, controlled release Oral daily, SandoSTATIN LAR [place] 1 (40 mg) Intramuscular q 4 weeks, Sertraline HCl 1 Tablet (of 100 mg) Oral b.i.d. Allergies: Ativan and Darvon. Vital Signs: Performed on Oct 26, 2020 13:24 Height - 72.00 in Weight - 205.4 lbs (LOW) BSA - 2.15 sq.m BMI - 27.86 Temperature - 98.2 F (LOW) Pulse - 84 /min Respiration - 18 /min BP - 129/86 mm(hg) O2 Sat - 94 % (LOW) Pain - 0 Fatigue - 9 Physical Examination: Constitutional - He appears somewhat weak generally, Eyes - Sclerae nonicteric. Conjunctivae clear, ENMT - No lesions noted in the oral cavity, Hematologic/Lymphatic - No cervical, clavicular, or axillary adenopathy, Respiratory - Lungs sound clear with some decrease in air movement bilaterally, Cardiovascular - Heart rhythm is irregular. There is a II/ systolic murmur. There is no gallop or rub noted, Abdomen - Mildly distended but soft. Liver and spleen are not enlarged. There is no abdominal mass or ascites noted and there is no inguinal adenopathy, Extremities - No edema, Neurologic - No focal neurologic deficits noted. Lab/Imaging: Test performed on Oct 26, 2020 10:45 Iron 63 mcg/dL Sodium 142 mmol/L Iron Binding Capacity (TIBC) 291 mcg/dl Potassium 4.2 mmol/L % Iron Saturation 21.6 % Chloride 112 mmol/L CO2 19 mmol/L UIBC 228 mcg/dL Anion Gap 15.2 BUN 20 mg/dL Creatinine 1.5 mg/dL Cr Clearance (Est) 58.66 mL/min Glucose 127 mg/dL Osmolality - Calculated 298 mOsm/kg Calcium 8.5 mg/dL Protein, Total 7.1 g/dL Albumin 4.1 g/dL Globulin 3.0 g/dL Bilirubin, Total 0.3 mg/dL ALT (SGPT) 14 U/L AST (SGOT) 24 U/L Alkaline Phosphatase 146 IU/L WBC 6.4 10 3/uL RBC 3.55 10 6/uL HGB 11.2 g/dL HCT 36.3 % MCV 102.3 fL MCH 31.5 pg MCHC 30.9 g/dL RDW 14.8 % Platelet Count 172 10 3/cmm MPV 10.2 fL Neutrophils 4.05 10 3/uL Lymphocytes 1.7 10 3/uL Monocytes 0.5 10 3/uL Eosinophils 0.2 10 3/uL Basophils 0.1 10 3/uL Neutrophil % 63.4 % Lymphocyte % 25.9 % Monocyte % 7.3 % Eosinophil % 2.3 % Basophils % 0.9 % NRBC % 0 % Problem List: 1. Metastatic carcinoid of small intestine origin. He has been on treatment with Sandostatin LAR following debulking surgery in 2008. Thus far during followup there has been no documented progression of the carcinoid. 2. He underwent sigmoid colon resection for sigmoid diverticulitis with associated bowel obstruction in 2011. He has had chronic diarrhea, though it is uncertain to what extent it may be due to the carcinoid versus after effects of his surgeries. 3. He was found to have iron deficiency anemia, most likely due to combination of GI blood loss and inadequate oral iron absorption. 4. He underwent radical prostatectomy for prostate cancer in 2012. He has had evidence of biochemical recurrence. 5. Hypertension. 6. Atrial fibrillation. 7. He had a had evidence of cardiomyopathy by myocardial perfusion imaging in February 2020. 8. Chronic kidney disease. 9. GERD. 10. Obstructive sleep apnea. 11. Degenerative disease of the spine with lumbar spinal canal stenosis. 12. History of gout. 13. Depression. Problems Addressed with this Encounter and Plan: 1. Patient with metastatic carcinoid of small intestine origin. He has been on treatment with Sandostatin LAR following debulking surgery in 2008. In 2011 he underwent sigmoid colon resection for sigmoid diverticulitis with associated bowel obstruction in 2011. During follow-up there has been no documented progression of the carcinoid. He has had chronic diarrhea, though I have been uncertain as to what extent it may be due to the carcinoid versus after effects of his surgeries. The management of his diarrhea has been problematic. It has persisted despite regular use of Lomotil or Imodium, and he was not able to tolerate telotristat. At this point he does not appear to be getting any significant benefit with colestipol. I did suggest that he at least try increasing the Imodium to 3 times a day. He does not want to go back on the tincture of opium, as it did cause ACTIVITY AID side effects. At least for now he will otherwise just continue treatment with Sandostatin LAR 40 mg by intramuscular injection monthly. I will see him again in 3 months. 2. He has had recurrent episodes of iron deficiency anemia. This is most likely combination of inadequate oral iron absorption and GI blood loss. It has responded adequately to parenteral iron replacement. He has now become mildly anemic again. His serum iron studies show transferrin saturation at the lower limit of normal. As such, he will be given a single infusion of Injectafer. His laboratory studies will be repeated in 1 month. 3. He underwent radical prostatectomy for prostate cancer in 2012, and he has evidence of biochemical recurrence, and his PSA has continued to increase gradually, now to 6.70 ng/mL. He has an appointment with his urologist next week. Signed By: Yifan Guido M.D. <<Signature on File>>
[2020-10-30 15:46] LABS: Chromogranin A LC/MS/MS 3025 ng/mL (ADULTS: <311)
[2020-10-31 17:28] LABS: Serotonin Whole Blood 114 ng/mL (56-244)
== END 2020-10-26 10:25 | disposition home or self-care (01) ==
LOC: ONCMED 10:31
PROVIDERS: PCP Family Medicine; Visit Provider Internal Medicine Medical Oncology
DX: C7A.019 Malignant carcinoid tumor of the small intestine, unspecified portion (principal); C7B.00 Secondary carcinoid tumors, unspecified site; K57.32 Diverticulitis of large intestine without perforation or abscess without bleeding; D50.0 Iron deficiency anemia secondary to blood loss (chronic); Z85.46 Personal history of malignant neoplasm of prostate; I10 Essential (primary) hypertension; I48.91 Unspecified atrial fibrillation; I42.9 Cardiomyopathy, unspecified; N18.9 Chronic kidney disease, unspecified; K21.9 Gastro-esophageal reflux disease without esophagitis; G47.33 Obstructive sleep apnea (adult) (pediatric); M51.36 Other intervertebral disc degeneration, lumbar region; M48.061 Spinal stenosis, lumbar region without neurogenic claudication; M10.9 Gout, unspecified; F32.9 Major depressive disorder, single episode, unspecified; Z79.899 Other long term (current) drug therapy
CPT/HCPCS: 36415; 80053; 83540; 83550; 84260; 85025; 86316; 96365; 96372; 99214; J1439; J2353

== ENCOUNTER 2020-11-25 10:50 | Outpatient (CLI) | payer MEDICARE, OTHER, BC, SELFPAY ==
[2020-11-25 11:47] LABS: Basophils # 0.1 10^3/uL (0.0-0.1); Eosinophils # 0.2 10^3/uL (0.0-0.8); Eosinophils % 3.5 %; Hematocrit 36.9 % (42.0-52.0); Hemoglobin 11.6 g/dL (11.7-16.6); Lymphocytes # 1.6 10^3/uL (0.8-4.8); Mean Corpuscular HGB Conc 31.4 g/dL (30.0-36.0); Mean Corpuscular Hemoglobin 31.6 pg (28.0-34.0); Mean Corpuscular Volume 100.5 fl (80-94); Mean Platelet Volume 10.5 fL (7.4-10.4); Monocytes # 0.4 10^3/uL (0.2-0.9); Monocytes % 7.2 %; Neutrophils # 3.71 10^3/uL (1.8-7.7); Neutrophils % 62.1 %; Nucleated Red Blood Cells % 0 %; Platelet Count 150 10^3/cmm (130-400); Red Blood Count 3.67 10^6/uL (4.1-5.3); Red Cell Distribution Width 15.2 % (12.1-15.1)
[2020-11-25] MEDS: octreotide LAR depot 20 mg Kit 40 MG IM (12:00)
[2020-11-25 12:31] LABS: Iron 95 ug/dL (59-158); Percent Saturation 34.9 % (20-50); Total Iron Binding Capacity 272 mcg/dl; Unsaturated Iron Binding 177 ug/dL (112-347)
== END 2020-11-25 10:51 | disposition home or self-care (01) ==
LOC: ONCMED 10:58
PROVIDERS: PCP Family Medicine; Visit Provider Internal Medicine Medical Oncology
DX: C7A.019 Malignant carcinoid tumor of the small intestine, unspecified portion (principal); Z79.899 Other long term (current) drug therapy
CPT/HCPCS: 36415; 83540; 83550; 85025; 96372; J2353

== ENCOUNTER 2020-12-21 14:09 | Outpatient (CLI) | payer MEDICARE, OTHER, BC, SELFPAY ==
[2020-12-21 15:29] LABS: Basophils # 0.1 10^3/uL (0.0-0.1); Basophils % 0.9 %; Eosinophils # 0.2 10^3/uL (0.0-0.8); Eosinophils % 2.2 %; Hematocrit 37.5 % (42.0-52.0); Hemoglobin 11.9 g/dL (11.7-16.6); Lymphocytes # 2.1 10^3/uL (0.8-4.8); Lymphocytes % 27.2 %; Mean Corpuscular HGB Conc 31.7 g/dL (30.0-36.0); Mean Corpuscular Hemoglobin 31.2 pg (28.0-34.0); Mean Corpuscular Volume 98.2 fl (80-94); Mean Platelet Volume 10.8 fL (7.4-10.4); Monocytes # 0.7 10^3/uL (0.2-0.9); Monocytes % 8.7 %; Neutrophils # 4.73 10^3/uL (1.8-7.7); Neutrophils % 60.7 %; Nucleated Red Blood Cells % 0 %; Platelet Count 194 10^3/cmm (130-400); Red Blood Count 3.82 10^6/uL (4.1-5.3); Red Cell Distribution Width 14.5 % (12.1-15.1); White Blood Count 7.8 10^3/uL (4.0-10.0)
[2020-12-21 16:32] LABS: Hepatitis B Core AB, Total Non-Reactive (Nonreactive); Hepatitis B Surface AB 3.5 (11.5-1000); Hepatitis B Surface Antigen Non-Reactive (Nonreactive)
[2020-12-21 16:44] LABS: Testosterone Total 118.9 ng/dL (193-740)
[2020-12-21 17:01] LABS: Alanine Aminotransferase 23 U/L (0-41); Albumin Level 4.2 g/dL (3.5-5.2); Alkaline Phosphatase 137 IU/L (40-130); Anion Gap 17.4 (5-19); Aspartate Amino Transferase 30 U/L (0-40); Blood Urea Nitrogen 21 mg/dL (8-23); Calcium 8.6 mg/dL (8.5-10.5); Carbon Dioxide 17 mmol/L (22-29); Chloride 113 mmol/L (98-107); Globulin 3.3 g/dL (1.3-4.6); Glucose 67 mg/dL (65-115); Lactate Dehydrogenase 207 U/L (135-225); Osmolality Calculated 297 mOsm/kg (285-295); Potassium 4.4 mmol/L (3.5-5.1); Sodium 143 mmol/L (136-145); Total Bilirubin 0.3 mg/dL (0.15-1.2); Total Protein 7.5 g/dL (6.6-8.7)
== END 2020-12-21 14:10 | disposition home or self-care (01) ==
PROVIDERS: PCP Family Medicine; Visit Provider Internal Medicine Medical Oncology
DX: C17.9 Malignant neoplasm of small intestine, unspecified (principal); C79.82 Secondary malignant neoplasm of genital organs; Z90.49 Acquired absence of other specified parts of digestive tract; D50.9 Iron deficiency anemia, unspecified; I48.91 Unspecified atrial fibrillation; I12.9 Hypertensive chronic kidney disease with stage 1 through stage 4 chronic kidney disease, or unspecified chronic kidney disease; N18.9 Chronic kidney disease, unspecified; K21.9 Gastro-esophageal reflux disease without esophagitis; G47.33 Obstructive sleep apnea (adult) (pediatric); M47.819 Spondylosis without myelopathy or radiculopathy, site unspecified; M48.00 Spinal stenosis, site unspecified; F32.9 Major depressive disorder, single episode, unspecified; Z79.899 Other long term (current) drug therapy
CPT/HCPCS: 36415; 80053; 83615; 84153; 84403; 85025; 86705; 86706; 87340

== ENCOUNTER 2020-12-21 15:41 | Outpatient (CLI) | payer MEDICARE, OTHER, BC, SELFPAY ==
--- NOTE | 2020-12-21 16:34 | ECG_ITS ---
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1950 Requested By: Yifan Walh Order Number: [id number] Carisa MD: CUONG GUSMAN Measurements Intervals [place] Rate: 65 P: AR: QRS: -40 QRSD: 100 T: 59 QT: 395 QTc: 412 Interpretive Statements ATRIAL FIBRILLATION PATTERN CONSISTENT WITH PULMONARY DISEASE INFERIOR MYOCARDIAL INFARCTION , PROBABLY OLD [40+ ms Q WAVE AND/OR ST/T ABNORMALITY IN II/aVF] INTERPRETATION BASED ON A DEFAULT AGE OF 40 YEARS No previous ECG available for comparison Electronically Signed On 12-21-2020 20:23:01 CDT by CUONG GUSMAN [email or web address]
== END 2020-12-21 15:42 | disposition home or self-care (01) ==
LOC: RT 15:55
PROVIDERS: PCP Family Medicine; Visit Provider Internal Medicine Medical Oncology
DX: R94.31 Abnormal electrocardiogram [ECG] [EKG] (principal); I48.91 Unspecified atrial fibrillation; I27.20 Pulmonary hypertension, unspecified
CPT/HCPCS: 93005

== ENCOUNTER 2020-12-25 06:33 | Outpatient (CLI) | payer MEDICARE, OTHER, BC, SELFPAY ==
[2020-12-25] MEDS: octreotide LAR depot 20 mg Kit 40 MG IM (09:30)
== END 2020-12-25 06:34 | disposition home or self-care (01) ==
LOC: ONCMED 06:34
PROVIDERS: PCP Family Medicine; Visit Provider Internal Medicine Medical Oncology
DX: K52.89 Other specified noninfective gastroenteritis and colitis (principal); C7A.019 Malignant carcinoid tumor of the small intestine, unspecified portion; C7B.02 Secondary carcinoid tumors of liver; C7B.04 Secondary carcinoid tumors of peritoneum
CPT/HCPCS: 96372; J2353

== ENCOUNTER 2021-01-19 10:49 | Outpatient (CLI) | payer MEDICARE, OTHER, BC, SELFPAY ==
[2021-01-19 11:45] LABS: Basophils # 0.1 10^3/uL (0.0-0.1); Basophils % 0.9 %; Eosinophils # 0.2 10^3/uL (0.0-0.8); Eosinophils % 3.2 %; Lymphocytes # 1.6 10^3/uL (0.8-4.8); Lymphocytes % 22.8 %; Mean Corpuscular HGB Conc 31.6 g/dL (30.0-36.0); Mean Corpuscular Hemoglobin 31.1 pg (28.0-34.0); Mean Corpuscular Volume 98.4 fl (80-94); Mean Platelet Volume 10.5 fL (7.4-10.4); Monocytes # 0.5 10^3/uL (0.2-0.9); Monocytes % 7.2 %; Neutrophils % 65.8 %; Nucleated Red Blood Cells % 0 %; Platelet Count 172 10^3/cmm (130-400); Red Blood Count 3.86 10^6/uL (4.1-5.3); Red Cell Distribution Width 14.6 % (12.1-15.1); White Blood Count 6.8 10^3/uL (4.0-10.0)
[2021-01-19 12:14] LABS: Alanine Aminotransferase 18 U/L (0-41); Albumin Level 4.1 g/dL (3.5-5.2); Alkaline Phosphatase 149 IU/L (40-130); Anion Gap 12.5 (5-19); Aspartate Amino Transferase 26 U/L (0-40); Blood Urea Nitrogen 19 mg/dL (8-23); Carbon Dioxide 20 mmol/L (22-29); Chloride 113 mmol/L (98-107); Ferritin 134 ng/mL (30-400); Globulin 3.2 g/dL (1.3-4.6); Glucose 88 mg/dL (65-115); Iron 68 ug/dL (59-158); Osmolality Calculated 294 mOsm/kg (285-295); Percent Saturation 25.2 % (20-50); Potassium 4.5 mmol/L (3.5-5.1); Sodium 141 mmol/L (136-145); Total Bilirubin 0.4 mg/dL (0.15-1.2); Total Iron Binding Capacity 269 mcg/dl; Total Protein 7.3 g/dL (6.6-8.7); Unsaturated Iron Binding 201 ug/dL (112-347)
[2021-01-27 15:07] LABS: Chromogranin A LC/MS/MS 1729 ng/mL (ADULTS: <311)
== END 2021-01-19 10:50 | disposition home or self-care (01) ==
PROVIDERS: PCP Family Medicine; Visit Provider Internal Medicine Medical Oncology
DX: D50.8 Other iron deficiency anemias (principal); C61 Malignant neoplasm of prostate; C7B.02 Secondary carcinoid tumors of liver; C7B.04 Secondary carcinoid tumors of peritoneum; C7B.09 Secondary carcinoid tumors of other sites; C7A.019 Malignant carcinoid tumor of the small intestine, unspecified portion; Z79.899 Other long term (current) drug therapy
CPT/HCPCS: 36415; 80053; 82728; 83540; 83550; 85025; 86316

== ENCOUNTER 2021-01-21 06:43 | Outpatient (CLI) | payer MEDICARE, OTHER, BC, SELFPAY ==
[2021-01-21] MEDS: octreotide LAR depot 20 mg Kit 40 MG IM (16:28)
--- NOTE | 2021-01-23 11:50 | ONC FU_ITS ---
Dr. Guido Patient Follow-Up Note Patient: Chilo Pacheco Unit #: [id number]: 1950 Dicatated By: Yifan Guido M.D.Date of Visit:Jan 21, 2021 Onc Med Follow-up/Prog Note Chief Complaint: Metastatic carcinoid/prostate cancer. History of Present Illness: This is a 70 year-old man with metastatic carcinoid. He also has prostate cancer with biochemical recurrence following radical prostatectomy in 2012. According to the available records, he was admitted to the hospital in December 2008 with atrial fibrillation. At that time he was having abdominal pain and he was found on CT scan to have multiple serosal and omental lesions. Ultrasound-guided biopsy was consistent with a carcinoid tumor. He subsequently underwent an exploratory laparotomy and debulking procedure. The primary tumor apparently was in the small intestine. The procedure included omentectomy, appendectomy, and cholecystectomy. According to the patient, metastatic lesions also were removed from the liver, kidney, and lung. He subsequently had chronic diarrhea, and he began treatment with monthly injections of Sandostatin LAR. His clinical course subsequent to his debulking surgery was complicated by an episode of bowel obstruction in 2011. This apparently was due to sigmoid diverticulitis and not to his malignancy. At that time he underwent sigmoid resection with colostomy placement, but the ostomy was later reversed. In 2012 he underwent radical prostatectomy for prostate cancer. I had seen him initially in May 2014. He continued on monthly injections of Sandostatin LAR. During follow-up, I also added short-acting octreotide injections to use as needed as well as tincture of opium to use as needed for the diarrhea. Beginning in August 2015 the Sandostatin LAR dosage was increased to 40 mg. In October 2016 he began a trial of therapy with telotristat for his carcinoid related diarrhea. It was eventually stopped because of side effects, mainly abdominal pain. Restaging CT of the chest, abdomen, and pelvis on 12/11/2017 showed stable postsurgical changes of right lower lobectomy with no suspicious pulmonary nodules noted. Postsurgical changes throughout the abdomen also appeared stable. There was no metastatic disease noted in the liver, and a left adrenal adenoma appeared stable. Multiple areas of dilatation and narrowing of the colon had a similar appearance to prior studies. Overall, there was no evidence of disease progression. He continued his monthly Sandostatin LAR. During that time, he also had recurrent iron deficiency anemia. He required parenteral iron replacement on multiple occasions including March 2016, May 2017, April 2018, October 2018, and June 2019. At his follow-up visit on 08/13/2019 he continued to complain of weakness and shortness of breath. He was having more abdominal cramping and diarrhea. He also complained of joint aches and muscle cramps. His restaging CT scans on 08/14/2019 showed progression of mucosal thickening involving the ascending and transverse colon suggestive of postinflammatory or infectious process or neoplastic process. The anastomosis at the rectosigmoid junction appeared intact with no recurrent mass. There was a new, very small pericardial effusion. A well-circumscribed left adrenal mass measuring 2.7 cm appeared stable. There was mild hepatic steatosis. Calcifications were noted in the inferior right lobe of the liver, but there was no evidence of metastatic disease. Echocardiogram showed normal left ventricular systolic function with ejection fraction estimated at 60%. There was mild to moderate aortic valve regurgitation. The tricuspid valve appeared structurally normal. There was just a trace of tricuspid valve regurgitation. With those findings, he continued treatment with Sandostatin LAR 40 mg monthly. He had restarted treatment with telotristat for management of the diarrhea. He was again unable to tolerate it due to abdominal pain. During subsequent follow-up he continued to complain of weakness and shortness of breath. He had further parenteral iron replacement in January 2020 and in March 2020, but without significant improvement in his symptoms. He was found to have heme positive stool, and he was taken off apixaban. 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 A Lexiscan stress test on 03/06/2020 showed abnormal myocardial perfusion imaging with a medium sized area of mild ischemia in the anterior and anterior lateral mead. There was moderate cardiomegaly with overall decreased left ventricular systolic function with estimated ejection fraction 34%. The ejection fraction was noted to have declined compared to a prior study from September 2015. CT of the abdomen/pelvis on 03/09/2020 showed a 3.7 cm left adrenal nodule with CT characteristics consistent with benign adrenal nodule. A couple of nodular densities adjacent to the sigmoid colon resection were noted to have enlarged compared to previous studies. There was interval development of small bilateral pleural effusions. Narrowing of the colon the sigmoid anastomosis appeared unchanged. With those findings he continued his monthly Sandostatin LAR injections. His other medical illnesses include hypertension, atrial fibrillation, GERD, obstructive sleep apnea, and depression. He also is known to have lumbar spinal canal stenosis, and he has been treated for gout. He underwent radical prostatectomy for prostate cancer in 2012. He had smoked in the past, but he quit almost 40 years ago. He has had just occasional alcohol use. INTERIM HISTORY: During his follow-up it was noted that his PSA level was elevated, consistent with biochemical recurrence. As of February 2020 it was just mildly elevated at 1.360 ng/mL. At that time we discussed the possibility of undergoing radiation to the prostate. However, he opted against it due to concerns that it might further worsen his already significant GI symptoms, mainly the diarrhea. As of his visit in October 2020 the PSA had increased to 6.70 ng/mL, at that point I did begin arrangements for him to initiate androgen deprivation therapy with bicalutamide in combination with relugolix 120 mg daily. He is seen for a follow-up visit. He has not been feeling good. He complains that he is tired all the time, to the point that he is sometimes having trouble staying awake. He is also started having trouble with balance and tends to stumble whenever he gets up to walk. He has limited activity. His ECOG score is 2. Appetite is still okay. He has not had fever, night sweats, or flushing spells. He says his throat sometimes feels clogged when he is taking his pills. He does not complain of cough. He has some shortness of breath, but his breathing is pretty good. He occasionally has heaviness in his chest. He sometimes has nausea. He has ongoing problems with his diarrhea and he does have mild abdominal discomfort and some abdominal cramping. Bladder function has been okay. He has been having some back pain. It tends to radiate to the left hip and left leg. He has numbness in his feet. Medications: AmLODIPine Besylate 1 Tablet (of 20 mg) Oral b.i.d., Aspirin EC 1 (81 mg) Tablet, enteric coated Oral daily, Colestipol HCl 1 Tablet (of 1 g) Oral t.i.d., [facility] Omeprazole 1 (20 mg) Tablet, enteric coated Oral b.i.d., Cyanocobalamin 1 Tablet (of 1000 mcg) Capsule Oral daily, Famotidine 1 Tablet (of 20 mg) Oral daily, Gabapentin 1 (300 mg) Capsule Oral b.i.d., Imodium A-D (2 mg) Tablet Oral Take as Directed, Klor-Con M10 1 Tablet (of 10 meq) Tablet, controlled release Oral b.i.d., Magnesium Oxide 1 (400 mg) Capsule Oral daily, Metoprolol Tartrate 1 Tablet (of 50 mg) Oral b.i.d., Niacin ER 1 (500 mg) Tablet, controlled release Oral daily, Pantoprazole Sodium 1 Tablet (of 40 mg) Tablet, enteric coated Oral daily, SandoSTATIN LAR [place] 1 (40 mg) Intramuscular q 4 weeks, Sertraline HCl 1 Tablet (of 100 mg) Oral b.i.d. Allergies: Ativan and Darvon. Vital Signs: Performed on Jan 21, 2021 16:11 Height - 72.00 in Weight - 208.2 lbs (HIGH) BSA - 2.17 sq.m BMI - 28.24 Temperature - 97.4 F (LOW) Pulse - 64 /min Respiration - 18 /min BP - 133/79 mm(hg) O2 Sat - 97 % Pain - 0 Fatigue - 0 Physical Examination: Constitutional - He appears somewhat weak generally, Eyes - Sclerae nonicteric. Conjunctivae clear, ENMT - No lesions noted in the oral cavity, Hematologic/Lymphatic - No cervical, clavicular, or axillary adenopathy, Respiratory - Lungs sound clear with some decrease in air movement bilaterally, Cardiovascular - Heart rhythm is irregular. There is a II/ systolic murmur. There is no gallop or rub noted, Abdomen - Mildly distended but soft. Liver and spleen are not enlarged. There is no abdominal mass or ascites noted and there is no inguinal adenopathy, Extremities - No edema, Neurologic - No focal neurologic deficits noted. Lab/Imaging: Test performed on Dec 21, 2020 14:28 LDH (Total) 207 U/L Sodium 143 mmol/L Testosterone, Total 118.9 ng/dL Potassium 4.4 mmol/L Chloride 113 mmol/L CO2 17 mmol/L Anion Gap 17.4 BUN 21 mg/dL Creatinine 1.6 mg/dL Cr Clearance (Est) 55.0000 mL/min Glucose 67 mg/dL Osmolality - Calculated 297 mOsm/kg Calcium 8.6 mg/dL Protein, Total 7.5 g/dL Albumin 4.2 g/dL Globulin 3.3 g/dL Bilirubin, Total 0.3 mg/dL ALT (SGPT) 23 U/L AST (SGOT) 30 U/L Alkaline Phosphatase 137 IU/L WBC 7.8 10 3/uL RBC 3.82 10 6/uL HGB 11.9 g/dL HCT 37.5 % MCV 98.2 fl MCH 31.2 pg MCHC 31.7 g/dL RDW 14.5 % Platelet Count 194 10 3/cmm MPV 10.8 fL Neutrophils 4.73 10 3/uL Lymphocytes 2.1 10 3/uL Monocytes 0.7 10 3/uL Eosinophils 0.2 10 3/uL Basophils 0.1 10 3/uL Neutrophil % 60.7 % Lymphocyte % 27.2 % Monocyte % 8.7 % Eosinophil % 2.2 % Basophils % 0.9 % NRBC % 0 % Hepatitis B Surf Antigen Non-Reactive Hepatitis B Surface Ab 3.5 STATUS of IMMUINITY Inconsistent with Immunity 0.0 - 8.4 mIU/mL Consistent with Indeterminate Immunity 8.5 - 11.4 mIU/mL Consistent with Immunity >= 11.5 mIU/mL Hepatitis B Core Ab, Total Non-Reactive PSA 8.840 ng/mL Problem List: 1. Metastatic carcinoid of small intestine origin. He has been on treatment with Sandostatin LAR following debulking surgery in 2008. Thus far during followup there has been no documented progression of the carcinoid. 2. He underwent sigmoid colon resection for sigmoid diverticulitis with associated bowel obstruction in 2011. He has had chronic diarrhea, though it is uncertain to what extent it may be due to the carcinoid versus after effects of his surgeries. 3. He was found to have iron deficiency anemia, most likely due to combination of GI blood loss and inadequate oral iron absorption. 4. He underwent radical prostatectomy for prostate cancer in 2012. He has had evidence of biochemical recurrence. 5. Hypertension. 6. Atrial fibrillation. 7. He had a had evidence of cardiomyopathy by myocardial perfusion imaging in February 2020. 8. Chronic kidney disease. 9. GERD. 10. Obstructive sleep apnea. 11. Degenerative disease of the spine with lumbar spinal canal stenosis. 12. History of gout. 13. Depression. Problems Addressed with this Encounter and Plan: 1. Patient with metastatic carcinoid of small intestine origin. He has been on treatment with Sandostatin LAR following debulking surgery in 2008. In 2011 he underwent sigmoid colon resection for sigmoid diverticulitis with associated bowel obstruction in 2011. During follow-up there has been no documented progression of the carcinoid. He has had chronic diarrhea, though I have been uncertain as to what extent it may be due to the carcinoid versus after effects of his surgeries. The management of his diarrhea has been problematic. It has persisted despite regular use of Lomotil or Imodium, and he was not able to tolerate telotristat. At this point he does not appear to be getting any significant benefit with colestipol. I did suggest that he at least try increasing the Imodium to 3 times a day. 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 At least for now he will otherwise just continue treatment with Sandostatin LAR 40 mg by intramuscular injection monthly. 2. He has had recurrent episodes of iron deficiency anemia. He was given parenteral iron replacement again in October. Thus far his blood counts remain adequate. 3. He underwent radical prostatectomy for prostate cancer in 2012, and he has evidence of biochemical recurrence. As of October his PSA had increased to 6.70 ng/mL. At that point I did begin arrangements for him to initiate androgen deprivation therapy with bicalutamide 50 mg daily in combination with relugolix 120 mg daily, the latter chosen due to reduce risks of cardiac side effects compared to Lupron or Zoladex. He has just recently started the medication, and is not yet been evaluated for response. He will be scheduled for a follow-up visit in 1 month. Signed By: Yifan Guido M.D. <<Signature on File>>
== END 2021-01-21 06:44 | disposition home or self-care (01) ==
PROVIDERS: PCP Family Medicine; Visit Provider Internal Medicine Medical Oncology
DX: C7A.012 Malignant carcinoid tumor of the ileum (principal); C7B.09 Secondary carcinoid tumors of other sites; K57.32 Diverticulitis of large intestine without perforation or abscess without bleeding; D50.0 Iron deficiency anemia secondary to blood loss (chronic); I10 Essential (primary) hypertension; I48.20 Chronic atrial fibrillation, unspecified; I42.9 Cardiomyopathy, unspecified; N18.9 Chronic kidney disease, unspecified; K21.9 Gastro-esophageal reflux disease without esophagitis; G47.33 Obstructive sleep apnea (adult) (pediatric); M51.36 Other intervertebral disc degeneration, lumbar region; M48.061 Spinal stenosis, lumbar region without neurogenic claudication; M10.9 Gout, unspecified; F32.9 Major depressive disorder, single episode, unspecified; Z79.818 Long term (current) use of other agents affecting estrogen receptors and estrogen levels
CPT/HCPCS: 96372; 99214; J2353

== ENCOUNTER 2021-01-21 14:44 | Outpatient (CLI) | payer MEDICARE, OTHER, BC, SELFPAY ==
--- NOTE | 2021-01-21 15:18 | ECG_ITS ---
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 Measurements Intervals [place] Rate: 71 P: AK: QRS: -24 QRSD: 98 T: 45 QT: 397 QTc: 432 Interpretive Statements ATRIAL FIBRILLATION INFERIOR MYOCARDIAL INFARCTION , PROBABLY OLD [40+ ms Q WAVE AND/OR ST/T ABNORMALITY IN II/aVF] Compared to ECG 12/21/2020 16:08:35 No significant changes Electronically Signed On 01-21-2021 17:07:02 CDT by Stevie Alberto M.D. [email or web address]
== END 2021-01-21 14:45 | disposition home or self-care (01) ==
LOC: RT 14:54
PROVIDERS: PCP Family Medicine; Visit Provider Internal Medicine Medical Oncology
DX: Z79.899 Other long term (current) drug therapy (principal)
CPT/HCPCS: 93005

== ENCOUNTER 2021-02-22 09:31 | Outpatient (CLI) | payer MEDICARE, OTHER, BC, SELFPAY ==
[2021-02-22 10:04] LABS: Basophils # 0.1 10^3/uL (0.0-0.1); Basophils % 0.8 %; Eosinophils # 0.2 10^3/uL (0.0-0.8); Eosinophils % 2.1 %; Hematocrit 33.9 % (42.0-52.0); Hemoglobin 10.6 g/dL (11.7-16.6); Lymphocytes # 1.8 10^3/uL (0.8-4.8); Lymphocytes % 23.1 %; Mean Corpuscular HGB Conc 31.3 g/dL (30.0-36.0); Mean Corpuscular Hemoglobin 30.6 pg (28.0-34.0); Mean Platelet Volume 10.3 fL (7.4-10.4); Monocytes # 0.7 10^3/uL (0.2-0.9); Monocytes % 8.6 %; Neutrophils % 65.1 %; Nucleated Red Blood Cells % 0 %; Platelet Count 203 10^3/cmm (130-400); Red Blood Count 3.46 10^6/uL (4.1-5.3); Red Cell Distribution Width 15.5 % (12.1-15.1); White Blood Count 7.7 10^3/uL (4.0-10.0)
[2021-02-22 10:27] LABS: Alanine Aminotransferase 12 U/L (0-41); Albumin Level 4.1 g/dL (3.5-5.2); Alkaline Phosphatase 142 IU/L (40-130); Anion Gap 16.3 (5-19); Aspartate Amino Transferase 17 U/L (0-40); Blood Urea Nitrogen 20 mg/dL (8-23); Calcium 8.4 mg/dL (8.5-10.5); Carbon Dioxide 17 mmol/L (22-29); Chloride 114 mmol/L (98-107); Globulin 2.6 g/dL (1.3-4.6); Glucose 97 mg/dL (65-115); Osmolality Calculated 299 mOsm/kg (285-295); Potassium 4.3 mmol/L (3.5-5.1); Prostate Specific Antigen 0.067 ng/mL (0-4); Sodium 143 mmol/L (136-145); Testosterone Total 2.5 ng/dL (193-740); Total Bilirubin 0.3 mg/dL (0.15-1.2); Total Protein 6.7 g/dL (6.6-8.7)
--- NOTE | 2021-02-22 11:12 | ECG_ITS ---
[facility] Test Date: 2021-02-22 Pat Name: Chilo Pacheco Department: Room: Gender: Male Field Contact Person: : 1950 Requested By: Yifan Wahl Order Number: [id number] Carisa MD: Stevie Alberto M.D. Measurements Intervals [place] Rate: 71 P: [place]: QRS: -32 QRSD: 102 T: 51 QT: 432 QTc: 472 Interpretive Statements ATRIAL FIBRILLATION LEFT AXIS DEVIATION [QRS AXIS < -30] INCOMPLETE RIGHT BUNDLE BRANCH BLOCK [90+ ms QRS DURATION, TERMINAL R IN V1/V2, 40+ ms S IN I/aVL/V4/V5/V6] Compared to ECG 01/21/2021 15:13:37 Left-axis deviation now present Incomplete right bundle-branch block now present Myocardial infarct finding no longer present Electronically Signed On 02-22-2021 17:02:37 PLATER APPRENTICE by Stevie Alberto M.D. [email or web address]
[2021-02-22 11:52] LABS: Iron 48 ug/dL (59-158); Total Iron Binding Capacity 282 mcg/dl; Unsaturated Iron Binding 234 ug/dL (112-347)
[2021-02-22] MEDS: octreotide LAR depot 20 mg Kit 40 MG IM (12:40)
[2021-02-22] MEDS: ferric carboxy (IVPB) 750 MG in sodium chloride 0.9% (100 ml) 100 ML 460 MG IV (12:40)
--- NOTE | 2021-02-22 18:39 | ONC FU_ITS ---
Dr. Guido Patient Follow-Up Note Patient: Chilo Pacheco Unit #: [id number]: 1950 Dicatated By: Yifan Guido M.D.Date of Visit:Feb 22, 2021 Onc Med Follow-up/Prog Note Chief Complaint: Metastatic carcinoid/prostate cancer. History of Present Illness: This is a 70 year-old man with metastatic carcinoid. He also has prostate cancer with biochemical recurrence following radical prostatectomy in 2012. According to the available records, he was admitted to the hospital in December 2008 with atrial fibrillation. At that time he was having abdominal pain and he was found on CT scan to have multiple serosal and omental lesions. Ultrasound-guided biopsy was consistent with a carcinoid tumor. He subsequently underwent an exploratory laparotomy and debulking procedure. The primary tumor apparently was in the small intestine. The procedure included omentectomy, appendectomy, and cholecystectomy. According to the patient, metastatic lesions also were removed from the liver, kidney, and lung. He subsequently had chronic diarrhea, and he began treatment with monthly injections of Sandostatin LAR. His clinical course subsequent to his debulking surgery was complicated by an episode of bowel obstruction in 2011. This apparently was due to sigmoid diverticulitis and not to his malignancy. At that time he underwent sigmoid resection with colostomy placement, but the ostomy was later reversed. In 2012 he underwent radical prostatectomy for prostate cancer. I had seen him initially in May 2014. He continued on monthly injections of Sandostatin LAR. During follow-up, I also added short-acting octreotide injections to use as needed as well as tincture of opium to use as needed for the diarrhea. Beginning in August 2015 the Sandostatin LAR dosage was increased to 40 mg. In October 2016 he began a trial of therapy with telotristat for his carcinoid related diarrhea. It was eventually stopped because of side effects, mainly abdominal pain. Restaging CT of the chest, abdomen, and pelvis on 12/11/2017 showed stable postsurgical changes of right lower lobectomy with no suspicious pulmonary nodules noted. Postsurgical changes throughout the abdomen also appeared stable. There was no metastatic disease noted in the liver, and a left adrenal adenoma appeared stable. Multiple areas of dilatation and narrowing of the colon had a similar appearance to prior studies. Overall, there was no evidence of disease progression. He continued his monthly Sandostatin LAR. During that time, he also had recurrent iron deficiency anemia. He required parenteral iron replacement on multiple occasions including March 2016, May 2017, April 2018, October 2018, and June 2019. At his follow-up visit on 08/13/2019 he continued to complain of weakness and shortness of breath. He was having more abdominal cramping and diarrhea. He also complained of joint aches and muscle cramps. His restaging CT scans on 08/14/2019 showed progression of mucosal thickening involving the ascending and transverse colon suggestive of postinflammatory or infectious process or neoplastic process. The anastomosis at the rectosigmoid junction appeared intact with no recurrent mass. There was a new, very small pericardial effusion. A well-circumscribed left adrenal mass measuring 2.7 cm appeared stable. There was mild hepatic steatosis. Calcifications were noted in the inferior right lobe of the liver, but there was no evidence of metastatic disease. Echocardiogram showed normal left ventricular systolic function with ejection fraction estimated at 60%. There was mild to moderate aortic valve regurgitation. The tricuspid valve appeared structurally normal. There was just a trace of tricuspid valve regurgitation. With those findings, he continued treatment with Sandostatin LAR 40 mg monthly. He had restarted treatment with telotristat for management of the diarrhea. He was again unable to tolerate it due to abdominal pain. During subsequent follow-up he continued to complain of weakness and shortness of breath. He had further parenteral iron replacement in January 2020 and in March 2020, but without significant improvement in his symptoms. He was found to have heme positive stool, and he was taken off apixaban. During that time he also had follow-up with his medical manager. A Lexiscan stress test on 03/06/2020 showed abnormal myocardial perfusion imaging with a medium sized area of mild ischemia in the anterior and anterior lateral mead. There was moderate cardiomegaly with overall decreased left ventricular systolic function with estimated ejection fraction 34%. The ejection fraction was noted to have declined compared to a prior study from September 2015. CT of the abdomen/pelvis on 03/09/2020 showed a 3.7 cm left adrenal nodule with CT characteristics consistent with benign adrenal nodule. A couple of nodular densities adjacent to the sigmoid colon resection were noted to have enlarged compared to previous studies. There was interval development of small bilateral pleural effusions. Narrowing of the colon the sigmoid anastomosis appeared unchanged. With those findings he continued his monthly Sandostatin LAR injections. His other medical illnesses include hypertension, atrial fibrillation, GERD, obstructive sleep apnea, and depression. He also is known to have lumbar spinal canal stenosis, and he has been treated for gout. He underwent radical prostatectomy for prostate cancer in 2012. He had smoked in the past, but he quit almost 40 years ago. He has had just occasional alcohol use. INTERIM HISTORY: During his follow-up it was noted that his PSA level was elevated, consistent with biochemical recurrence. As of February 2020 it was just mildly elevated at 1.360 ng/mL. At that time we discussed the possibility of undergoing radiation to the prostate. However, he opted against it due to concerns that it might further worsen his already significant GI symptoms, mainly the diarrhea. As of his visit in October 2020 the PSA had increased to 6.70 ng/mL, at that point I did begin arrangements for him to initiate androgen deprivation therapy. In January 2021 he began treatment with bicalutamide in combination with relugolix 120 mg daily. His baseline PSA level was 8.840 ng/mL. During that time, he also continued his monthly Sandostatin LAR injections. He is seen for a follow-up visit. He has been having problems with his back and hip pain. He did receive 2 injections in his back and he also has been getting physical therapy, which has helped somewhat. He still has limited activity and he also complains that he feels tired and that he wears out pretty quickly. He is up and around, though. His ECOG score is 2. He has not been eating as much lately. His weight is down a little. He has not had fever or night sweats. He has had a couple of hot flashes. He mostly feels cold a lot. Reports having drippy nose. He also complains that he gets clinched in the bottom of his throat and he has associated difficulty swallowing. He is scheduled to undergo an EGD procedure. He does not complain of cough, and he says his breathing has been okay. He has pressure in his chest off and on. He has quite a bit of postprandial nausea and he has some acid reflux symptoms. Bowel function has been a little better. He still has frequent bowel movements, but not diarrhea. He has frequent urination. Recently has had some headaches. He tends to stagger if he moves too fast. He has numbness in his feet. Medications: AmLODIPine Besylate 1 Tablet (of 20 mg) Oral b.i.d., Aspirin EC 1 (81 mg) Tablet, enteric coated Oral daily, [facility] Omeprazole 1 (20 mg) Tablet, enteric coated Oral b.i.d., Cyanocobalamin 1 Tablet (of 1000 mcg) Capsule Oral daily, Famotidine 1 Tablet (of 20 mg) Oral daily, Gabapentin 1 (300 mg) Capsule Oral b.i.d., Imodium A-D (2 mg) Tablet Oral Take as Directed, Klor-Con M10 1 Tablet (of 10 meq) Tablet, controlled release Oral b.i.d., Magnesium Oxide 1 (400 mg) Capsule Oral daily, Metoprolol Tartrate 1 Tablet (of 50 mg) Oral b.i.d., Niacin ER 1 (500 mg) Tablet, controlled release Oral daily, Pantoprazole Sodium 1 Tablet (of 40 mg) Tablet, enteric coated Oral daily, SandoSTATIN LAR [place] 1 (40 mg) Intramuscular q 4 weeks, Sertraline HCl 1 Tablet (of 100 mg) Oral b.i.d. Allergies: Ativan and Darvon. Vital Signs: Performed on Feb 22, 2021 15:31 Height - 72.00 in Weight - 203.8 lbs (LOW) BSA - 2.15 sq.m BMI - 27.64 Temperature - 96.8 F (LOW) Pulse - 74 /min Respiration - 16 /min BP - 135/82 mm(hg) O2 Sat - 97 % Pain - 4 Fatigue - 8 Physical Examination: Constitutional - He appears somewhat weak generally, Eyes - Sclerae nonicteric. Conjunctivae clear, ENMT - No lesions noted in the oral cavity, Hematologic/Lymphatic - No cervical, clavicular, or axillary adenopathy, Respiratory - Lungs sound clear with some decrease in air movement bilaterally, Cardiovascular - Heart rhythm is irregular. There is a II/ systolic murmur. There is no gallop or rub noted, Abdomen - Mildly distended but soft. Liver and spleen are not enlarged. There is no abdominal mass or ascites noted and there is no inguinal adenopathy, Extremities - No edema, Neurologic - No focal neurologic deficits noted. Lab/Imaging: Test performed on Feb 22, 2021 09:44 Iron 48 mcg/dL Sodium 143 mmol/L Testosterone, Total 2.5 ng/dL Iron Binding Capacity (TIBC) 282 mcg/dl Potassium 4.3 mmol/L % Iron Saturation 17.0 % Chloride 114 mmol/L CO2 17 mmol/L UIBC 234 mcg/dL Anion Gap 16.3 BUN 20 mg/dL Creatinine 1.8 mg/dL Cr Clearance (Est) 48.50 mL/min Glucose 97 mg/dL Osmolality - Calculated 299 mOsm/kg Calcium 8.4 mg/dL Protein, Total 6.7 g/dL Albumin 4.1 g/dL Globulin 2.6 g/dL Bilirubin, Total 0.3 mg/dL ALT (SGPT) 12 U/L AST (SGOT) 17 U/L Alkaline Phosphatase 142 IU/L WBC 7.7 10 3/uL RBC 3.46 10 6/uL HGB 10.6 g/dL HCT 33.9 % MCV 98.0 fl MCH 30.6 pg MCHC 31.3 g/dL RDW 15.5 % Platelet Count 203 10 3/cmm MPV 10.3 fL Neutrophils 5.00 10 3/uL Lymphocytes 1.8 10 3/uL Monocytes 0.7 10 3/uL Eosinophils 0.2 10 3/uL Basophils 0.1 10 3/uL Neutrophil % 65.1 % Lymphocyte % 23.1 % Monocyte % 8.6 % Eosinophil % 2.1 % Basophils % 0.8 % NRBC % 0 % PSA 0.067 ng/mL Problem List: 1. Metastatic carcinoid of small intestine origin. He has been on treatment with Sandostatin LAR following debulking surgery in 2008. Thus far during followup there has been no documented progression of the carcinoid. 2. He underwent sigmoid colon resection for sigmoid diverticulitis with associated bowel obstruction in 2011. He has had chronic diarrhea, though it is uncertain to what extent it may be due to the carcinoid versus after effects of his surgeries. 3. He was found to have iron deficiency anemia, most likely due to combination of GI blood loss and inadequate oral iron absorption. 4. He underwent radical prostatectomy for prostate cancer in 2012. He has had evidence of biochemical recurrence. 5. Hypertension. 6. Atrial fibrillation. 7. He had a had evidence of cardiomyopathy by myocardial perfusion imaging in February 2020. 8. Chronic kidney disease. 9. GERD. 10. Obstructive sleep apnea. 11. Degenerative disease of the spine with lumbar spinal canal stenosis. 12. History of gout. 13. Depression. Problems Addressed with this Encounter and Plan: 1. Patient with metastatic carcinoid of small intestine origin. He has been on treatment with Sandostatin LAR following debulking surgery in 2008. In 2011 he underwent sigmoid colon resection for sigmoid diverticulitis with associated bowel obstruction in 2011. During follow-up there has been no documented progression of the carcinoid. He has had chronic diarrhea, though I have been uncertain as to what extent it may be due to the carcinoid versus after effects of his surgeries. The management of his diarrhea has been problematic. It has persisted despite regular use of Lomotil or Imodium, and he was not able to tolerate telotristat. He did not have any significant benefit with colestipol. He had subsequently just managed it with Imodium as needed. Recently, it has improved somewhat. Thus far there has been no obvious progression of the carcinoid. He continues treatment with Sandostatin LAR 40 mg by intramuscular injection monthly. He will be scheduled for a follow-up visit in 3 months. 2. He has had recurrent episodes of iron deficiency anemia. He is now mildly anemic again with his transferrin saturation low at 17%. He will be given Injectafer 750 mg by IV infusion. 3. He underwent radical prostatectomy for prostate cancer in 2012, and he has evidence of biochemical recurrence. As of October his PSA had increased to 6.70 ng/mL. At that point I did begin arrangements for him to initiate androgen deprivation therapy with bicalutamide 50 mg daily in combination with relugolix 120 mg daily, the latter chosen due to reduce risks of cardiac side effects compared to Lupron or Zoladex. Thus far he has tolerated without significant adverse effects, and he is showing significant response with his PSA level decreased to 0.067 ng/mL compared to baseline 8.840 ng/mL. He continues treatment with relative relugolix 120 mg daily. Signed By: Yifan Guido M.D. <<Signature on File>>
== END 2021-02-22 09:32 | disposition home or self-care (01) ==
LOC: ONCMED 09:35
PROVIDERS: PCP Family Medicine; Visit Provider Internal Medicine Medical Oncology
DX: D50.9 Iron deficiency anemia, unspecified (principal); C7B.09 Secondary carcinoid tumors of other sites; I48.91 Unspecified atrial fibrillation; I12.9 Hypertensive chronic kidney disease with stage 1 through stage 4 chronic kidney disease, or unspecified chronic kidney disease; N18.9 Chronic kidney disease, unspecified; Z85.46 Personal history of malignant neoplasm of prostate; F32.A Depression, unspecified; K21.9 Gastro-esophageal reflux disease without esophagitis
CPT/HCPCS: 80053; 83540; 83550; 84153; 84403; 85025; 90471; 90686; 93005; 96365; 96372; 99214; J1439; J2353

== ENCOUNTER 2021-03-29 13:21 | Outpatient (CLI) | payer MEDICARE, OTHER, BC, SELFPAY ==
[2021-03-29] MEDS: octreotide LAR depot 20 mg Kit 40 MG IM (13:47)
[2021-03-29 14:13] LABS: Iron 42 ug/dL (59-158)
[2021-03-29 14:15] LABS: Percent Saturation 15.7 % (20-50); Total Iron Binding Capacity 267 mcg/dl; Unsaturated Iron Binding 225 ug/dL (112-347)
== END 2021-03-29 13:22 | disposition home or self-care (01) ==
PROVIDERS: PCP Family Medicine; Visit Provider Internal Medicine Medical Oncology
DX: C61 Malignant neoplasm of prostate (principal); D50.9 Iron deficiency anemia, unspecified; Z79.818 Long term (current) use of other agents affecting estrogen receptors and estrogen levels
CPT/HCPCS: 36415; 83540; 83550; 85025; 96372; J2353

== ENCOUNTER 2021-04-20 07:32 | Outpatient (CLI) | payer MEDICARE, OTHER, BC, SELFPAY ==
--- NOTE | 2021-04-20 | USCV_ITS ---
Transthoracic Echo Chilo Pacheco Age: 70 Gender: M : 1950 Exam Date: 04/20/2021 07:52 Ordering Phys: Monse Barr NP Technologist: CR [place] [facility] [place]: High Risk Medication/Dizziness BP: 140 / 80 HR: 80 Rhythm: Atrial fibrillation Technical Quality: Adequate MEASUREMENTS (Male / Female) Normal Values 2D ECHO LV Diastolic Diameter PLAX 4.6 cm 4.2 - 5.9 / 3.9 - 5.3 cm LV Systolic Diameter PLAX 3.1 cm IVS Diastolic Thickness 1.3 cm 0.6 - 1.0 / 0.6 - 0.9 cm IVS Systolic Thickness 1.7 cm LVPW Diastolic Thickness 1.3 cm 0.6 - 1.0 / 0.6 - 0.9 cm LVPW Systolic Thickness 2.9 cm LVOT Diameter 2.3 cm LV Ejection Fraction 2D Teich 62.1 % LV Ejection Fraction MOD 2C 70.5 % LV Ejection Fraction 2C AL 70.7 % LA Diameter 4.6 cm LA Width 4.0 cm LA Height 5.9 cm RA Width 4.0 cm RA Height 5.1 cm Aorta at Sinotubular Diameter 2.3 cm M-MODE Aortic Annulus Diameter 3.6 cm LA Ao Ratio MM 1.3 MV E Point Septal Separation 0.7 cm DOPPLER AV Peak Velocity 119.0 cm/s LVOT Peak Velocity 84.0 cm/s AV Area Cont Eq vti 2.4 cm squared AV Area Cont Eq pk 2.8 cm squared MV Area PHT 5.9 cm squared MV E' Velocity 100.0 cm/s TR Peak Velocity 190.9 cm/s TR Peak Gradient 14.6 mmHg TR Mean Velocity 197.0 cm/s TR Mean Gradient 17.5 mmHg TR Velocity Time Integral 82.1 cm TV Peak E Velocity 69.0 cm/s PV Peak Velocity 93.0 cm/s RV Acceleration Time 0.1 s RV Ejection Time 0.3 s RV AcT/ET 0.3 FINDINGS Left Ventricle Normal left ventricular size. LV systolic function is normal with EF of 55-60%. No regional wall motion abnormalities. Diastolic function is indeterminate Right Ventricle The right ventricle is normal in size and function. Right Atrium The right atrium is normal in size. Left Atrium The left atrium is mildly enlarged Mitral Valve Structurally normal mitral valve without significant stenosis or prolapse. There is moderate mitral regurgitation. Aortic Valve Structurally normal aortic valve without significant sclerosis or stenosis. There is moderate aortic regurgitation. Tricuspid Valve Structurally normal tricuspid valve without significant stenosis . Mild tricuspid regurgitation. Pulmonary artery systolic pressure is normal. Pulmonic Valve Structurally normal pulmonic valve without significant stenosis. There is no pulmonic regurgitation. Pericardium Normal pericardium without effusion. Aorta Normal ascending aorta dimension. CONCLUSIONS LV systolic function is normal with EF of 55-60% Moderate mitral regurgitation Moderate aortic regurgitation Mild tricuspid regurgitation Compared to prior echocardiogram from 08/14/2019, mitral regurgitation has progressed and is moderate now Stevie Alberto MD (Electronically Signed) Final Date: 24 April 2021 12:09 S
== END 2021-04-20 07:33 | disposition home or self-care (01) ==
LOC: RAD 07:35
PROVIDERS: PCP Family Medicine; Visit Provider Nurse Practitioner Family
DX: Z79.899 Other long term (current) drug therapy (principal); R42 Dizziness and giddiness; I08.3 Combined rheumatic disorders of mitral, aortic and tricuspid valves
CPT/HCPCS: 93306

== ENCOUNTER 2021-05-03 09:31 | Outpatient (CLI) | payer MEDICARE, OTHER, BC, SELFPAY ==
[2021-05-03 10:05] LABS: Basophils # 0.1 10^3/uL (0.0-0.1); Eosinophils # 0.1 10^3/uL (0.0-0.8); Hematocrit 30.7 % (42.0-52.0); Hemoglobin 9.7 g/dL (11.7-16.6); Lymphocytes # 1.6 10^3/uL (0.8-4.8); Lymphocytes % 21.9 %; Mean Corpuscular HGB Conc 31.6 g/dL (30.0-36.0); Mean Corpuscular Hemoglobin 31.3 pg (28.0-34.0); Monocytes # 0.5 10^3/uL (0.2-0.9); Monocytes % 7.4 %; Neutrophils # 4.84 10^3/uL (1.8-7.7); Neutrophils % 67.4 %; Nucleated Red Blood Cells % 0 %; Platelet Count 166 10^3/cmm (130-400); Red Cell Distribution Width 14.5 % (12.1-15.1); White Blood Count 7.2 10^3/uL (4.0-10.0)
[2021-05-03 10:45] LABS: Alanine Aminotransferase 27 U/L (0-41); Albumin Level 4.1 g/dL (3.5-5.2); Alkaline Phosphatase 147 IU/L (40-130); Anion Gap 14.1 (5-19); Aspartate Amino Transferase 28 U/L (0-40); Blood Urea Nitrogen 21 mg/dL (8-23); Calcium 9.2 mg/dL (8.5-10.5); Carbon Dioxide 18 mmol/L (22-29); Chloride 113 mmol/L (98-107); Globulin 3.1 g/dL (1.3-4.6); Glucose 107 mg/dL (65-115); Iron 58 ug/dL (59-158); Osmolality Calculated 295 mOsm/kg (285-295); Percent Saturation 23.9 % (20-50); Potassium 4.1 mmol/L (3.5-5.1); Sodium 141 mmol/L (136-145); Total Bilirubin 0.3 mg/dL (0.15-1.2); Total Iron Binding Capacity 242 mcg/dl; Total Protein 7.2 g/dL (6.6-8.7); Unsaturated Iron Binding 184 ug/dL (112-347)
[2021-05-03 10:48] LABS: Prostate Specific Antigen < 0.014 ng/mL (0-4)
[2021-05-03] MEDS: ferric carboxy (IVPB) 750 MG in sodium chloride 0.9% (100 ml) 100 ML 460 MG IV (12:03)
[2021-05-03] MEDS: octreotide LAR depot 20 mg Kit 40 MG IM (12:25)
--- NOTE | 2021-05-04 19:01 | ONC FU_ITS ---
Dr. Guido Patient Follow-Up Note Patient: Chilo Pacheco Unit #: [id number]: 1950 Dicatated By: Yifan Guido M.D.Date of Visit:May 03, 2021 Onc Med Follow-up/Prog Note Chief Complaint: Metastatic carcinoid/prostate cancer. History of Present Illness: This is a 70 year-old man with metastatic carcinoid. He also has prostate cancer with biochemical recurrence following radical prostatectomy in 2012. According to the available records, he had been admitted to the hospital in December 2008 with atrial fibrillation. At that time he was having abdominal pain and he was found on CT scan to have multiple serosal and omental lesions. Ultrasound-guided biopsy was consistent with a carcinoid tumor. He subsequently underwent an exploratory laparotomy and debulking procedure. The primary tumor apparently was in the small intestine. The procedure included omentectomy, appendectomy, and cholecystectomy. According to the patient, metastatic lesions also were removed from the liver, kidney, and lung. He subsequently had chronic diarrhea, and he began treatment with monthly injections of Sandostatin LAR. His clinical course subsequent to his debulking surgery was complicated by an episode of bowel obstruction in 2011. This apparently was due to sigmoid diverticulitis and not to his malignancy. At that time he underwent sigmoid resection with colostomy placement, but the ostomy was later reversed. In 2012 he underwent radical prostatectomy for prostate cancer. I had seen him initially in May 2014. He continued on monthly injections of Sandostatin LAR. During follow-up, I also added short-acting octreotide injections to use as needed as well as tincture of opium to use as needed for the diarrhea. Beginning in August 2015 the Sandostatin LAR dosage was increased to 40 mg. In October 2016 he began a trial of therapy with telotristat for his carcinoid related diarrhea. It was eventually stopped because of side effects, mainly abdominal pain. Restaging CT of the chest, abdomen, and pelvis on 12/11/2017 showed stable postsurgical changes of right lower lobectomy with no suspicious pulmonary nodules noted. Postsurgical changes throughout the abdomen also appeared stable. There was no metastatic disease noted in the liver, and a left adrenal adenoma appeared stable. Multiple areas of dilatation and narrowing of the colon had a similar appearance to prior studies. Overall, there was no evidence of disease progression, and he continued his monthly Sandostatin LAR. During that time, he also had recurrent iron deficiency anemia. He required parenteral iron replacement on multiple occasions including March 2016, May 2017, April 2018, October 2018, and June 2019. During follow-up he had ongoing problems with the diarrhea, and he also complained of weakness and shortness of breath. He required further parenteral iron replacement in January 2020 and in March 2020, but without significant improvement in his symptoms. He was found to have heme positive stool, and he was taken off apixaban. During that time he also had follow-up with his cryptologist. A Lexiscan stress test on 03/06/2020 showed abnormal myocardial perfusion imaging with a medium sized area of mild ischemia in the anterior and anterior lateral mead. There was moderate cardiomegaly with overall decreased left ventricular systolic function with estimated ejection fraction 34%. The ejection fraction was noted to have declined compared to a prior study from September 2015. CT of the abdomen/pelvis on 03/09/2020 showed a 3.7 cm left adrenal nodule with CT characteristics consistent with benign adrenal nodule. A couple of nodular densities adjacent to the sigmoid colon resection were noted to have enlarged compared to previous studies. There was interval development of small bilateral pleural effusions. Narrowing of the colon the sigmoid anastomosis appeared unchanged. During his follow-up it was also noted that his PSA level was elevated, consistent with biochemical recurrence. As of February 2020 it was just mildly elevated at 1.360 ng/mL. At that time we discussed the possibility of undergoing radiation to the prostate. However, he opted against it due to concerns that it might further worsen his already significant GI symptoms, mainly the diarrhea. As of his visit in October 2020 the PSA had increased to 6.70 ng/mL, and at that point I did begin arrangements for him to initiate androgen deprivation therapy. In January 2021 he began treatment with bicalutamide in combination with relugolix 120 mg daily. His baseline PSA level was 8.840 ng/mL. He did have a good response with his PSA level decreasing to 0.067 ng/mL in February 2021. During that time, he also continued his monthly Sandostatin LAR injections. His other medical illnesses include hypertension, atrial fibrillation, GERD, obstructive sleep apnea, and depression. He also is known to have lumbar spinal canal stenosis, and he has been treated for gout. He underwent radical prostatectomy for prostate cancer in 2012. He had smoked in the past, but he quit almost 40 years ago. He has had just occasional alcohol use. INTERIM HISTORY: He is seen for a follow-up visit. On 04/19/2021 he was recommended to stop the relugolix, as he had called and reported having issues with balance/equilibrium. Those symptoms have now improved, and he says his energy has also been a little better since he stopped the medication. He is doing some light work at home. ECOG score is 1. He has good appetite. He has not had fever and he reports having no hot flashes or sweating. Recently he has had some soreness in his nose, but he has not had sore mouth or throat. He has just very occasional cough. He says his breathing has been pretty good lately. He has had pressure in his chest occasionally. His diarrhea has been pretty well controlled with Imodium. He has no other GI or complaints. He currently has no significant joint or bone pain, but he does complain of having a lot of muscle cramps. He has had a few light headaches. He has neuropathy in his feet. Medications: AmLODIPine Besylate 1 Tablet (of 10 mg) Oral b.i.d., Anti-Diarrheal 6 Tablet (of 2 mg) Oral daily, Aspirin EC 1 (81 mg) Tablet, enteric coated Oral daily, Colestipol HCl 1 Tablet (of 1 g) Oral t.i.d., [facility] Omeprazole 1 (20 mg) Tablet, enteric coated Oral b.i.d., Cyanocobalamin 1 Tablet (of 1000 mcg) Capsule Oral daily, Famotidine 1 Tablet (of 20 mg) Oral daily, Gabapentin 1 (300 mg) Capsule Oral b.i.d., Imodium A-D (2 mg) Tablet Oral Take as Directed, DayanaraCon M10 1 Tablet (of 20 meq) Tablet, controlled release Oral b.i.d., Magnesium Oxide 1 (400 mg) Capsule Oral daily, Metoprolol Tartrate 1 Tablet (of 50 mg) Oral b.i.d., Niacin ER 1 (500 mg) Tablet, controlled release Oral daily, Pantoprazole Sodium 1 Tablet (of 40 mg) Tablet, enteric coated Oral daily, Pregabalin 1 Tablet (of 50 mg) Capsule Oral t.i.d., SandoSTATIN LAR Depot 1 (40 mg) Intramuscular q 4 weeks, Sertraline HCl 1 Tablet (of 100 mg) Oral b.i.d. Allergies: Ativan and Darvon. Vital Signs: Performed on May 03, 2021 13:07 Height - 72.00 in Weight - 205.8 lbs (HIGH) BSA - 2.16 sq.m BMI - 27.91 Temperature - 98.1 F (LOW) Pulse - 76 /min Respiration - 16 /min BP - 147/84 mm(hg) (HIGH) O2 Sat - 97 % Pain - 0 Fatigue - 4 Physical Examination: Constitutional - He appears somewhat weak generally, Eyes - Sclerae nonicteric. Conjunctivae clear, ENMT - No lesions noted in the oral cavity, Hematologic/Lymphatic - No cervical, clavicular, or axillary adenopathy, Respiratory - Lungs sound clear with some decrease in air movement bilaterally, Cardiovascular - Heart rhythm is irregular. There is a II/ systolic murmur. There is no gallop or rub noted, Abdomen - Mildly distended but soft. Liver and spleen are not enlarged. There is no abdominal mass or ascites noted and there is no inguinal adenopathy, Extremities - No edema, Neurologic - No focal neurologic deficits noted. Lab/Imaging: Test performed on May 03, 2021 09:55 Iron 58 mcg/dL Sodium 141 mmol/L Iron Binding Capacity (TIBC) 242 mcg/dl Potassium 4.1 mmol/L % Iron Saturation 23.9 % Chloride 113 mmol/L CO2 18 mmol/L UIBC 184 mcg/dL Anion Gap 14.1 BUN 21 mg/dL Creatinine 1.6 mg/dL Cr Clearance (Est) 55.10 mL/min Glucose 107 mg/dL Osmolality - Calculated 295 mOsm/kg Calcium 9.2 mg/dL Protein, Total 7.2 g/dL Albumin 4.1 g/dL Globulin 3.1 g/dL Bilirubin, Total 0.3 mg/dL ALT (SGPT) 27 U/L AST (SGOT) 28 U/L Alkaline Phosphatase 147 IU/L WBC 7.2 10 3/uL RBC 3.10 10 6/uL HGB 9.7 g/dL HCT 30.7 % MCV 99.0 fl MCH 31.3 pg MCHC 31.6 g/dL RDW 14.5 % Platelet Count 166 10 3/cmm MPV 10.0 fL Neutrophils 4.84 10 3/uL Lymphocytes 1.6 10 3/uL Monocytes 0.5 10 3/uL Eosinophils 0.1 10 3/uL Basophils 0.1 10 3/uL Neutrophil % 67.4 % Lymphocyte % 21.9 % Monocyte % 7.4 % Eosinophil % 2.0 % Basophils % 1.0 % NRBC % 0 % PSA < 0.014 ng/mL Problem List: 1. Metastatic carcinoid of small intestine origin. He has been on treatment with Sandostatin LAR following debulking surgery in 2008. Thus far during followup there has been no documented progression of the carcinoid. 2. He underwent sigmoid colon resection for sigmoid diverticulitis with associated bowel obstruction in 2011. He has had chronic diarrhea, though it is uncertain to what extent it may be due to the carcinoid versus after effects of his surgeries. 3. He was found to have iron deficiency anemia, most likely due to combination of GI blood loss and inadequate oral iron absorption. 4. He underwent radical prostatectomy for prostate cancer in 2012. He has had evidence of biochemical recurrence. 5. Hypertension. 6. Atrial fibrillation. 7. He had a had evidence of cardiomyopathy by myocardial perfusion imaging in February 2020. 8. Chronic kidney disease. 9. GERD. 10. Obstructive sleep apnea. 11. Degenerative disease of the spine with lumbar spinal canal stenosis. 12. History of gout. 13. Depression. Problems Addressed with this Encounter and Plan: 1. Patient with metastatic carcinoid of small intestine origin. He has been on treatment with Sandostatin LAR following debulking surgery in 2008. In 2011 he underwent sigmoid colon resection for sigmoid diverticulitis with associated bowel obstruction in 2011. During follow-up there has been no documented progression of the carcinoid. He has had chronic diarrhea, though I have been uncertain as to what extent it may be due to the carcinoid versus after effects of his surgeries. At the present time he is managing the diarrhea adequately with Imodium. He is otherwise not having overt carcinoid symptoms. He continues treatment with Sandostatin LAR 40 mg by intramuscular injection monthly. He will be scheduled for a follow-up visit in 3 months. 2. He has had recurrent episodes of iron deficiency anemia. His current CBC shows his hemoglobin decreased to 9.7 g. As his transferrin saturation is borderline low, he will be given parenteral iron replacement with a single infusion of Injectafer. His blood counts and iron studies will be monitored monthly. 3. He underwent radical prostatectomy for prostate cancer in 2012, and he had evidence of biochemical recurrence. As of October his PSA had increased to 6.70 ng/mL. At that point I did begin arrangements for him to initiate androgen deprivation therapy with bicalutamide 50 mg daily in combination with relugolix 120 mg daily, the latter chosen due to reduce risks of cardiac side effects compared to Lupron or Zoladex. He has had very good response by PSA level. Initially he had tolerated the treatment well. However, on 04/19/2021 his treatment was put on hold due to side effects, mainly issues with balance/equilibrium. Those symptoms have subsequently improved. At least for now, he will be followed expectantly for the prostate cancer with PSA monitored at 3-month intervals. Signed By: Yifan Guido M.D. <<Signature on File>>
[2021-05-10 15:32] LABS: Serotonin Whole Blood 76 ng/mL (56-244)
[2021-05-13 14:59] LABS: Chromogranin A LC/MS/MS 2314 ng/mL (ADULTS: <311)
== END 2021-05-03 09:32 | disposition home or self-care (01) ==
LOC: ONCMED 09:35
PROVIDERS: PCP Family Medicine; Visit Provider Internal Medicine Medical Oncology
DX: C17.9 Malignant neoplasm of small intestine, unspecified (principal); C79.82 Secondary malignant neoplasm of genital organs; D50.9 Iron deficiency anemia, unspecified; I10 Essential (primary) hypertension; I48.91 Unspecified atrial fibrillation; N18.9 Chronic kidney disease, unspecified; K21.9 Gastro-esophageal reflux disease without esophagitis; G47.33 Obstructive sleep apnea (adult) (pediatric); M47.896 Other spondylosis, lumbar region; F32.A Depression, unspecified; M10.9 Gout, unspecified; Z79.818 Long term (current) use of other agents affecting estrogen receptors and estrogen levels; Z79.899 Other long term (current) drug therapy
CPT/HCPCS: 80053; 83540; 83550; 84153; 84260; 85025; 86316; 96365; 96372; 99215; J1439; J2353

== ENCOUNTER 2021-06-01 10:38 | Outpatient (CLI) | payer MEDICARE, OTHER, BC, SELFPAY ==
[2021-06-01] MEDS: octreotide LAR depot 20 mg Kit 40 MG IM (11:10)
[2021-06-01 11:49] LABS: Basophils # 0.1 10^3/uL (0.0-0.1); Basophils % 1.1 %; Eosinophils # 0.2 10^3/uL (0.0-0.8); Eosinophils % 2.4 %; Hematocrit 32.9 % (42.0-52.0); Lymphocytes # 1.8 10^3/uL (0.8-4.8); Lymphocytes % 27.9 %; Mean Corpuscular HGB Conc 30.4 g/dL (30.0-36.0); Mean Corpuscular Hemoglobin 31.3 pg (28.0-34.0); Mean Corpuscular Volume 102.8 fl (80-94); Mean Platelet Volume 10.5 fL (7.4-10.4); Monocytes # 0.5 10^3/uL (0.2-0.9); Monocytes % 7.6 %; Neutrophils # 3.83 10^3/uL (1.8-7.7); Neutrophils % 60.7 %; Nucleated Red Blood Cells % 0 %; Platelet Count 167 10^3/cmm (130-400); Red Cell Distribution Width 16.2 % (12.1-15.1); White Blood Count 6.3 10^3/uL (4.0-10.0)
[2021-06-01 12:14] LABS: Ferritin 239 ng/mL (30-400); Iron 101 ug/dL (59-158); Percent Saturation 38.8 % (20-50); Total Iron Binding Capacity 260 mcg/dl; Unsaturated Iron Binding 159 ug/dL (112-347)
== END 2021-06-01 10:39 | disposition home or self-care (01) ==
PROVIDERS: PCP Family Medicine; Visit Provider Internal Medicine Medical Oncology
DX: C61 Malignant neoplasm of prostate (principal); D50.9 Iron deficiency anemia, unspecified; R19.7 Diarrhea, unspecified; I10 Essential (primary) hypertension; I48.91 Unspecified atrial fibrillation; K21.9 Gastro-esophageal reflux disease without esophagitis; F32.A Depression, unspecified; G47.33 Obstructive sleep apnea (adult) (pediatric)
CPT/HCPCS: 36415; 82728; 83540; 83550; 85025; 96372; J2353

== ENCOUNTER 2021-06-09 12:42 | Outpatient (CLI) | payer MEDICARE, OTHER, BC, SELFPAY ==
--- NOTE | 2021-06-09 12:56 | CT_ITS ---
WS: [id number] CT CHEST, ABDOMEN AND PELVIS WITH CONTRAST. HISTORY: PROSTATE CANCER TECHNIQUE: Contiguous 5 mm axial imaging performed through the chest, abdomen and pelvis with IV cont rast, oral contrast has been provided. Coronal and sagittal reformats chest. Coronal and sagittal ref ormats through the abdomen and pelvis. All CT scans at [facility] use at least one of these d ose optimization techniques: automated exposure control; mA and/or kV adjustment per patient size (in cludes targeted exams where dose is matched to clinical indication); or iterative reconstruction. CONTRAST: Visipaque 320; 95 mL IV. DLP: 1867.08 mGy.cm COMPARISON: 08/14/[address]: Mild elevation RIGHT hemidiaphragm with subsegmental atelectasis at the RIGHT lung base. Th ere is mild pleural thickening at the RIGHT lung base inseparable postsurgical clips. Partial RIGHT l ower lobectomy. There is mild thickening along the minor and major fissures of the LEFT lung. These n odules are stable. No mass. Normal-sized thoracic aorta and pulmonary artery. There is a stent-like o bject in the LEFT atrial appendage. This has not been present on prior examinations. Small circumfere ntial pericardial effusion is slightly increased in size since the prior examinations. Abdomen CT: Normal size liver. Mild heterogeneity. There are a few scattered too small to characteriz e hyperattenuation nodules. Lobulated calcification along the surface of the RIGHT lobe of the liver. The portal vein is patent. Now admixing of blood within the SMV. No definite thrombus identified. Sp syed is normal. Mild atrophy of the pancreas. Common bile duct is normal. RIGHT adrenal gland is norm al. Well-circumscribed LEFT adrenal mass measures 3.2 x 3.1 cm and has been previously described and may be a benign adenoma. No renal mass or obstruction. Similar appearance as compared to prior studie s. Atherosclerotic changes within the aorta. Supraumbilical fat-containing abdominal wall hernia. Diffuse patulous appearance of the colon. Surgical anastomotic site in the RIGHT colon is stable. No recurrent mass identified. Additional surgical anastomosis in the sigmoid. There is mild diffuse thic kening of the sigmoid. Pelvic CT: No adenopathy or free fluid in the pelvis. Again noted is the hernia containing omentum in the LEFT lateral abdominal wall. Mild progressive enlargement of the seminal vesicles. Osteopenia. No osteoblastic or osteolytic bone disease. Large laminectomy defects throughout the lumb ar spine. No osteoblastic or osteolytic disease. CT/CT chest abd pel w con* IMPRESSION: 1. No evidence for metastatic disease within the lungs. Stable partial RIGHT l ower lobectomy changes. 2. No metastatic disease to the liver. 3. Stable LEFT adrenal mass which is probably an adenoma. 4. There is a foreign body within the region of the LEFT atrial appendage. Thi s appears to be a short stent of uncertain etiology. This stent was not present on prior studies. This may be a migrated stent. 5. Pericardial effusion has slightly progressed since the prior study. 6. Stable postsurgical changes in the ascending colon and at the sigmoid. Ther e is soft tissue thickening in the region of the sigmoid similar to the prior s tudy over a long segment which may be post treatment. 7. Increasing size of the seminal vesicles. This is adjacent to the postoperat price changes in the sigmoid. Cannot exclude invasion into the seminal vesicles. 8. Stable LEFT lateral abdominal wall hernia containing omentum only. Notified Yifan Guido MD at 06/10/2021 9:24 AM.
[2021-06-09] MEDS: iohexol 300 mg/mL 50 mL Btl PO (13:28)
[2021-06-09] MEDS: iodixanol 320 mg/mL 100mL Btl IV (14:31)
== END 2021-06-09 12:43 | disposition home or self-care (01) ==
LOC: RAD 12:45
PROVIDERS: PCP Family Medicine; Visit Provider Internal Medicine Medical Oncology
DX: C61 Malignant neoplasm of prostate (principal); Z90.2 Acquired absence of lung [part of]; D49.7 Neoplasm of unspecified behavior of endocrine glands and other parts of nervous system; I31.3 Pericardial effusion (noninflammatory); K43.9 Ventral hernia without obstruction or gangrene
CPT/HCPCS: 71260; 74177

== ENCOUNTER 2021-06-28 12:00 | Outpatient (CLI) | payer MEDICARE, OTHER, BC, SELFPAY ==
[2021-06-28] MEDS: octreotide LAR depot 20 mg Kit 40 MG IM (12:28)
[2021-06-28 12:40] LABS: Basophils # 0.1 10^3/uL (0.0-0.1); Basophils % 0.8 %; Eosinophils % 0.6 %; Hematocrit 31.4 % (42.0-52.0); Hemoglobin 9.8 g/dL (11.7-16.6); Lymphocytes # 1.5 10^3/uL (0.8-4.8); Lymphocytes % 22.8 %; Mean Corpuscular HGB Conc 31.2 g/dL (30.0-36.0); Mean Corpuscular Hemoglobin 31.1 pg (28.0-34.0); Mean Corpuscular Volume 99.7 fl (80-94); Mean Platelet Volume 10.8 fL (7.4-10.4); Monocytes # 0.7 10^3/uL (0.2-0.9); Neutrophils # 4.26 10^3/uL (1.8-7.7); Neutrophils % 65.6 %; Nucleated Red Blood Cells % 0 %; Platelet Count 138 10^3/cmm (130-400); Red Blood Count 3.15 10^6/uL (4.1-5.3); Red Cell Distribution Width 15.9 % (12.1-15.1); White Blood Count 6.5 10^3/uL (4.0-10.0)
[2021-06-28 12:56] LABS: Ferritin 155 ng/mL (30-400); Iron 35 ug/dL (59-158); Percent Saturation 15.7 % (20-50); Total Iron Binding Capacity 222 mcg/dl; Unsaturated Iron Binding 187 ug/dL (112-347)
[2021-06-28 15:51] LABS: Prostate Specific Antigen 0.095 ng/mL (0-4)
== END 2021-06-28 12:01 | disposition home or self-care (01) ==
PROVIDERS: PCP Family Medicine; Visit Provider Internal Medicine Medical Oncology
DX: C61 Malignant neoplasm of prostate (principal); D50.9 Iron deficiency anemia, unspecified; Z79.818 Long term (current) use of other agents affecting estrogen receptors and estrogen levels; Z79.899 Other long term (current) drug therapy
CPT/HCPCS: 36415; 82728; 83540; 83550; 84153; 85025; 96372; J2353

== ENCOUNTER 2021-06-30 12:19 | Outpatient (CLI) | payer MEDICARE, OTHER, BC, SELFPAY ==
[2021-06-30] MEDS: ferric carboxy (IVPB) 750 MG in sodium chloride 0.9% (100 ml) 100 ML 460 MG IV (13:45)
--- NOTE | 2021-07-01 20:54 | ONC FU_ITS ---
Monse Barr Progress Note Patient: Chilo Pacheco Unit #: [id number]: [id number] Dicatated By: Monse Barr N.P.Date of Visit:Jun 30, 2021 Onc MED Follow-up/Prog Note Chief Complaint: Metastatic carcinoid/prostate cancer. History of Present Illness: This is a 70 year-old man with metastatic carcinoid. He also has prostate cancer with biochemical recurrence following radical prostatectomy in 2012. According to the available records, he had been admitted to the hospital in December 2008 with atrial fibrillation. At that time he was having abdominal pain and he was found on CT scan to have multiple serosal and omental lesions. Ultrasound-guided biopsy was consistent with a carcinoid tumor. He subsequently underwent an exploratory laparotomy and debulking procedure. The primary tumor apparently was in the small intestine. The procedure included omentectomy, appendectomy, and cholecystectomy. According to the patient, metastatic lesions also were removed from the liver, kidney, and lung. He subsequently had chronic diarrhea, and he began treatment with monthly injections of Sandostatin LAR. His clinical course subsequent to his debulking surgery was complicated by an episode of bowel obstruction in 2011. This apparently was due to sigmoid diverticulitis and not to his malignancy. At that time he underwent sigmoid resection with colostomy placement, but the ostomy was later reversed. In 2012 he underwent radical prostatectomy for prostate cancer. Dr. Guido had seen him initially in May 2014. He continued on monthly injections of Sandostatin LAR. During follow-up, he also added short-acting octreotide injections to use as needed as well as tincture of opium to use as needed for the diarrhea. Beginning in August 2015 the Sandostatin LAR dosage was increased to 40 mg. In October 2016 he began a trial of therapy with telotristat for his carcinoid related diarrhea. It was eventually stopped because of side effects, mainly abdominal pain. Restaging CT of the chest, abdomen, and pelvis on 12/11/2017 showed stable postsurgical changes of right lower lobectomy with no suspicious pulmonary nodules noted. Postsurgical changes throughout the abdomen also appeared stable. There was no metastatic disease noted in the liver, and a left adrenal adenoma appeared stable. Multiple areas of dilatation and narrowing of the colon had a similar appearance to prior studies. Overall, there was no evidence of disease progression, and he continued his monthly Sandostatin LAR. During that time, he also had recurrent iron deficiency anemia. He required parenteral iron replacement on multiple occasions including March 2016, May 2017, April 2018, October 2018, and June 2019. During follow-up he had ongoing problems with the diarrhea, and he also complained of weakness and shortness of breath. He required further parenteral iron replacement in January 2020 and in March 2020, but without significant improvement in his symptoms. He was found to have heme positive stool, and he was taken off apixaban. During that time he also had follow-up with his crime laboratory analyst. A Lexiscan stress test on 03/06/2020 showed abnormal myocardial perfusion imaging with a medium sized area of mild ischemia in the anterior and anterior lateral mead. There was moderate cardiomegaly with overall decreased left ventricular systolic function with estimated ejection fraction 34%. The ejection fraction was noted to have declined compared to a prior study from September 2015. CT of the abdomen/pelvis on 03/09/2020 showed a 3.7 cm left adrenal nodule with CT characteristics consistent with benign adrenal nodule. A couple of nodular densities adjacent to the sigmoid colon resection were noted to have enlarged compared to previous studies. There was interval development of small bilateral pleural effusions. Narrowing of the colon the sigmoid anastomosis appeared unchanged. During his follow-up it was also noted that his PSA level was elevated, consistent with biochemical recurrence. As of February 2020 it was just mildly elevated at 1.360 ng/mL. At that time we discussed the possibility of undergoing radiation to the prostate. However, he opted against it due to concerns that it might further worsen his already significant GI symptoms, mainly the diarrhea. As of his visit in October 2020 the PSA had increased to 6.70 ng/mL, and at that point I did begin arrangements for him to initiate androgen deprivation therapy. In January 2021 he began treatment with bicalutamide in combination with relugolix 120 mg daily. His baseline PSA level was 8.840 ng/mL. He did have a good response with his PSA level decreasing to 0.067 ng/mL in February 2021. During that time, he also continued his monthly Sandostatin LAR injections. His other medical illnesses include hypertension, atrial fibrillation, GERD, obstructive sleep apnea, and depression. He also is known to have lumbar spinal canal stenosis, and he has been treated for gout. He underwent radical prostatectomy for prostate cancer in 2012. He had smoked in the past, but he quit almost 40 years ago. He has had just occasional alcohol use. On 04/19/2021 he was recommended to stop the relugolix, as he had called and reported having issues with balance/equilibrium. His symptoms then improved. INTERIM HISTORY: He is seen for a follow-up visit. Patient presents today for follow-up. He states he has been feeling pretty good. His appetite has been good. He denies fever, chills, night sweats. No mouth sores or sore throat. No shortness of breath, cough, chest pain. He does have some diarrhea that is well controlled with Imodium. He has some chronic arthritis. He has bilateral lower extremity neuropathy. Review Of Symptoms:See above. Past Medical History: Atrial fibrillation Cardiomyopathy Chronic kidney disease Depression Gastroesophageal reflux disease Hypertension Lumbar spinal canal stenosis Metastatic carcinoid Prostate cancer Sleep apnea Past Surgical History: Lumbar laminectomy for spinal canal stenosis Covid vaccine #2 in 2020 Covid vaccine #1 in 2020 Flu vaccine in 2019 Flu Vaccine in 2014 - Left deltoid/lc Colostomy reversal in 2012 Radical prostatectomy in 2012 Sigmoid colon resection with colostomy placement in 2011 Exploratory lap [facility] debulking of carcinoid tumor, omentectomy, appendectomy and cholecystectomy in 2008 Carpal tunnel surgery in 2001 - bilateral Ventral hernia repair in 1996 Vasectomy in 1980 Allergies: Ativan and Darvon. Medications: AmLODIPine Besylate 1 Tablet (of 10 mg) Oral b.i.d. Anti-Diarrheal 6 Tablet (of 2 mg) Oral daily Aspirin EC 1 (81 mg) Tablet, enteric coated Oral daily Colestipol HCl 1 Tablet (of 1 g) Oral t.i.d. [facility] Omeprazole 1 (20 mg) Tablet, enteric coated Oral b.i.d. Cyanocobalamin 1 Tablet (of 1000 mcg) Capsule Oral daily Famotidine 1 Tablet (of 20 mg) Oral daily Gabapentin 1 (300 mg) Capsule Oral b.i.d. Imodium A-D (2 mg) Tablet Oral Take as Directed Klor-Con M10 1 Tablet (of 20 meq) Tablet, controlled release Oral b.i.d. Magnesium Oxide 1 (400 mg) Capsule Oral daily Metoprolol Tartrate 1 Tablet (of 50 mg) Oral b.i.d. Niacin ER 1 (500 mg) Tablet, controlled release Oral daily Pantoprazole Sodium 1 Tablet (of 40 mg) Tablet, enteric coated Oral daily Pregabalin 1 Tablet (of 50 mg) Capsule Oral t.i.d. SandoSTATIN LAR Depot 1 (40 mg) Intramuscular q 4 weeks Sertraline HCl 1 Tablet (of 100 mg) Oral b.i.d. Family History: Mr. Pacheco's mother at age 72: medical history includes aneurysm (cause of ). Mr. Pacheco's father at age 72: medical history includes COPD (cause of ). Mr. Pacheco has 2 brothers: 2 alive. He has 5 sisters: 4 alive, 1 . Mr. Pacheco's first sister's medical history includes lung cancer (cause of ). Another sister's medical history includes kidney cancer. Father with COPD and mother with cerebral aneurysm, both at age 72. A sister at age 63 with COPD and lung cancer. There is additional history of heart disease and diabetes affecting his mother and several sisters. Social History: Mr. Pacheco is and he is an unknown. Mr. Pacheco quit smoking 40 years ago but had smoked 2.0 packs/day for 6 years. He is an active drinker. Mr. Pacheco reports the following support systems: lives with spouse, significant other, family, or friends, lives in own house, supportive family/friends willing to assist with needs, and adequate transportation available for expected visits. His diet consists of regular meals. He indicates his activity level as: daily activities. 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 He had smoked 2 packs of cigarettes daily for a period of 6 or 7 years, but he quit smoking 38 years ago. He has very occasional alcohol use. pt has no plans to restart. Physical Examination: Performed on Jun 30, 2021 13:12: Height - 72.00 in, Weight - 198.0 lbs (LOW), BSA - 2.12 sq.m, BMI - 26.85, Temperature - 97.5 F (LOW), Pulse - 93 /min, Respiration - 16 /min, BP - 120/76 mm(hg), O2 Sat - 98 %, Pain - 0, and Fatigue - 8. Performance Status: 1 - No physically strenuous activity, but ambulatory and able to carry out light or sedentary work (e.g. office work, light house work). (ECOG) Constitutional Alert, cooperative, oriented. Mood and affect appropriate. Appears close to chronological age. Well nourished. Well developed. Respiratory Lungs are clear to auscultation without rhonchi or wheezing. Cardiovascular Regular rate and rhythm of heart without murmurs, gallops or rubs. Abdomen Non-tender, non-distended, no masses, ascites or hepatosplenomegaly. Good bowel sounds. No guarding or rebound tenderness. Psychiatric Alert and oriented times three. Coherent speech. Verbalizes understanding of our discussions today. Laboratory: Test performed on Jun 01, 2021 11:14 Ferritin 239 ng/mL Iron 101 mcg/dL Iron Binding Capacity (TIBC) 260 mcg/dl % Iron Saturation 38.8 % UIBC 159 mcg/dL WBC 6.3 10 3/uL RBC 3.20 10 6/uL HGB 10.0 g/dL HCT 32.9 % MCV 102.8 fl MCH 31.3 pg MCHC 30.4 g/dL RDW 16.2 % Platelet Count 167 10 3/cmm MPV 10.5 fL Neutrophils 3.83 10 3/uL Lymphocytes 1.8 10 3/uL Monocytes 0.5 10 3/uL Eosinophils 0.2 10 3/uL Basophils 0.1 10 3/uL Neutrophil % 60.7 % Lymphocyte % 27.9 % Monocyte % 7.6 % Eosinophil % 2.4 % Basophils % 1.1 % NRBC % 0 % Test performed on May 03, 2021 09:55 Serotonin, Serum 76 ng/mL Sodium 141 mmol/L Potassium 4.1 mmol/L Chloride 113 mmol/L CO2 18 mmol/L Anion Gap 14.1 BUN 21 mg/dL Creatinine 1.6 mg/dL Cr Clearance (Est) 55.10 mL/min Glucose 107 mg/dL Osmolality - Calculated 295 mOsm/kg Calcium 9.2 mg/dL Protein, Total 7.2 g/dL Albumin 4.1 g/dL Globulin 3.1 g/dL Bilirubin, Total 0.3 mg/dL ALT (SGPT) 27 U/L AST (SGOT) 28 U/L Alkaline Phosphatase 147 IU/L PSA < 0.014 ng/mL Test performed on Mar 29, 2021 13:40 Manual Diff No CLOTTED. PLEASE RECOLLECT Test performed on Feb 22, 2021 09:44 Testosterone, Total 2.5 ng/dL Impression: 1. Metastatic carcinoid of small intestine origin. He has been on treatment with Sandostatin LAR following debulking surgery in 2008. Thus far during followup there has been no documented progression of the carcinoid. 2. He underwent sigmoid colon resection for sigmoid diverticulitis with associated bowel obstruction in 2011. He has had chronic diarrhea, though it is uncertain to what extent it may be due to the carcinoid versus after effects of his surgeries. 3. He was found to have iron deficiency anemia, most likely due to combination of GI blood loss and inadequate oral iron absorption. 4. He underwent radical prostatectomy for prostate cancer in 2012. He has had evidence of biochemical recurrence. 5. Hypertension. 6. Atrial fibrillation. 7. He had a had evidence of cardiomyopathy by myocardial perfusion imaging in February 2020. 8. Chronic kidney disease. 9. GERD. 10. Obstructive sleep apnea. 11. Degenerative disease of the spine with lumbar spinal canal stenosis. 12. History of gout. 13. Depression. Plan: 1. Patient with metastatic carcinoid of small intestine origin. He has been on treatment with Sandostatin LAR following debulking surgery in 2008. In 2011 he underwent sigmoid colon resection for sigmoid diverticulitis with associated bowel obstruction in 2011. During follow-up there has been no documented progression of the carcinoid. He has had chronic diarrhea, though it is uncertain as to what extent it may be due to the carcinoid versus after effects of his surgeries. He has diarrhea which is well controlled with Imodium. He continues treatment with Sandostatin LAR 40 mg by intramuscular injection monthly. He will be scheduled for a follow-up visit in 3 months. 2. He has had recurrent episodes of iron deficiency anemia. His current CBC shows his hemoglobin at 9.8. His iron saturation has decreased to 15.7 and his iron is low at 35. He will receive Injectafer 750 mg 1 week apart x2. We will recheck CBC and iron studies in 1 month. 3. He underwent radical prostatectomy for prostate cancer in 2012, and he had evidence of biochemical recurrence. As of October his PSA had increased to 6.70 ng/mL. At that point I did begin arrangements for him to initiate androgen deprivation therapy with bicalutamide 50 mg daily in combination with relugolix 120 mg daily, the latter chosen due to reduce risks of cardiac side effects compared to Lupron or Zoladex. He has had very good response by PSA level. Initially he had tolerated the treatment well. However, on 04/19/2021 his treatment was put on hold due to side effects, mainly issues with balance/equilibrium. Those symptoms have subsequently improved. His PSA today is 0.095. He will be followed expectantly for the prostate cancer with PSA monitored at 3-month intervals. Signed By: Monse Barr N.P. <<Signature on File>>
== END 2021-06-30 12:20 | disposition home or self-care (01) ==
LOC: ONCMED 12:20
PROVIDERS: PCP Family Medicine; Visit Provider Nurse Practitioner Family
DX: D50.9 Iron deficiency anemia, unspecified (principal); I10 Essential (primary) hypertension; I48.91 Unspecified atrial fibrillation; I12.9 Hypertensive chronic kidney disease with stage 1 through stage 4 chronic kidney disease, or unspecified chronic kidney disease; N18.9 Chronic kidney disease, unspecified; R19.7 Diarrhea, unspecified; C61 Malignant neoplasm of prostate; C7B.09 Secondary carcinoid tumors of other sites
CPT/HCPCS: 96365; 99214; J1439

== ENCOUNTER 2021-08-02 14:00 | Oncology outpatient (recurring) (ONCR) | payer MEDICARE, OTHER, BC, SELFPAY ==
[2021-07-22] MEDS: ferric carboxy (IVPB) 750 MG in sodium chloride 0.9% (100 ml) 100 ML 345 MG IV (11:45)
== END 2021-08-17 23:59 | disposition home or self-care (01) ==
PROVIDERS: PCP Family Medicine; Referring Provider Specialist; Visit Provider Internal Medicine Medical Oncology
DX: C61 Malignant neoplasm of prostate (principal); D50.9 Iron deficiency anemia, unspecified; Z79.899 Other long term (current) drug therapy
CPT/HCPCS: 96365; J1439

== ENCOUNTER 2021-08-26 11:40 | Oncology outpatient (recurring) (ONCR) | payer MEDICARE, OTHER, BC, SELFPAY ==
[2021-08-26 12:52] LABS: Basophils # 0.1 10^3/uL (0.0-0.1); Basophils % 0.6 %; Eosinophils # 0.1 10^3/uL (0.0-0.8); Eosinophils % 0.8 %; Hematocrit 28.7 % (42.0-52.0); Hemoglobin 9.3 g/dL (11.7-16.6); Lymphocytes # 2.1 10^3/uL (0.8-4.8); Lymphocytes % 25.2 %; Mean Corpuscular HGB Conc 32.4 g/dL (30.0-36.0); Mean Corpuscular Volume 95.7 fl (80-94); Mean Platelet Volume 11.4 fL (7.4-10.4); Monocytes # 0.7 10^3/uL (0.2-0.9); Monocytes % 8.4 %; Neutrophils % 64.4 %; Nucleated Red Blood Cells % 0 %; Platelet Count 147 10^3/cmm (130-400); White Blood Count 8.2 10^3/uL (4.0-10.0)
--- NOTE | 2021-08-26 13:00 | FL_ITS ---
WS: [id number] Exam: FL barium swallow [id number] Date/Time of Exam: 08/26/2021 12:43 PM Reason For Exam: Fluoroscopy time: 2min [id number] minutes # of spot films: 14 The patient experienced great difficulty initiating the swallowing process specifically elevating the tongue to the hard palate. There was significant pooling of barium into the vallecula and piriform s inuses. No aspiration was seen. The esophagus is smooth in contour. No sign of esophageal stricture o r mass. Esophageal motility was normal. Barium spills freely into the stomach. The esophagus was not displaced. No obvious reflux. No obvious hiatal hernia. Recommendations: A modified barium swallow could be helpful for more comprehensive evaluation. FL/FL barium swallow [id number] IMPRESSION: 1. The patient experienced significant difficulty initiating the swallowing pro cess specifically elevating the tongue the hard palate to begin swallowing. The re was significant pooling of the barium into the vallecula and piriform sinuse s. No obvious aspiration was noted but the patient is probably at increased ris k for aspiration. 2. The esophagus is smooth in contour with grossly normal motility. No esophage al stricture or mass was seen. No reflux was observed.
[2021-08-26 13:23] LABS: Alanine Aminotransferase 30 U/L (0-41); Albumin Level 3.5 g/dL (3.5-5.2); Alkaline Phosphatase 190 IU/L (40-130); Aspartate Amino Transferase 33 U/L (0-40); Blood Urea Nitrogen 27 mg/dL (8-23); Calcium 8.1 mg/dL (8.5-10.5); Carbon Dioxide 14 mmol/L (22-29); Chloride 117 mmol/L (98-107); Globulin 3.1 g/dL (1.3-4.6); Glucose 78 mg/dL (65-115); Iron 111 ug/dL (59-158); Osmolality Calculated 300 mOsm/kg (285-295); Percent Saturation 56.3 % (20-50); Prostate Specific Antigen 0.127 ng/mL (0-4); Sodium 143 mmol/L (136-145); Total Bilirubin 0.3 mg/dL (0.15-1.2); Total Iron Binding Capacity 197 mcg/dl; Total Protein 6.6 g/dL (6.6-8.7); Unsaturated Iron Binding 86 ug/dL (112-347)
[2021-08-26 13:24] LABS: Anion Gap 15.9 (5-19); Potassium 3.9 mmol/L (3.5-5.1)
[2021-08-26 15:16] LABS: Magnesium 1.7 mg/dL (1.7-2.3)
--- NOTE | 2021-08-26 15:54 | PC.NURSE ---
1545 pm Patient came into the suite for the new order per Dr Guido for Sandostatin 20mg IM given in right lateral gluteal area with no issues or concerns. He left the suite ambulatory.mike
--- NOTE | 2021-08-27 09:51 | PC.NURSE ---
Addendum entered by Caty Davis RN 08/27/21 09:56: Ordered By Dr. Guido . Original Note: Sandostatin Lar 20mg IM given right dorsogluteal at 1545 by Meghan Giang RN 08/26/[address] Cartagena. Order and treatment verified by Caty Davis RN. Unable to scan as computer system nonfunctional at time.
== END 2021-09-16 23:59 | disposition home or self-care (01) ==
PROVIDERS: PCP Family Medicine; Referring Provider Specialist; Visit Provider Internal Medicine Medical Oncology
DX: C7A.019 Malignant carcinoid tumor of the small intestine, unspecified portion (principal); C7B.02 Secondary carcinoid tumors of liver; K57.32 Diverticulitis of large intestine without perforation or abscess without bleeding; K52.9 Noninfective gastroenteritis and colitis, unspecified; Z79.818 Long term (current) use of other agents affecting estrogen receptors and estrogen levels; R13.10 Dysphagia, unspecified; R97.21 Rising PSA following treatment for malignant neoplasm of prostate; Z85.46 Personal history of malignant neoplasm of prostate; Z79.899 Other long term (current) drug therapy; Z87.891 Personal history of nicotine dependence
CPT/HCPCS: 74220; 80053; 83540; 83550; 83735; 84153; 84260; 85025; 86316; 99214; J2353

== ENCOUNTER 2021-09-27 13:59 | Oncology outpatient (recurring) (ONCR) | payer MEDICARE, OTHER, BC, SELFPAY ==
[2021-09-27] MEDS: octreotide LAR depot 20 mg Kit IM (15:27)
[2021-09-27 15:30] VITALS: BP 144/74; PULSE 74; RESP 18; TEMP 36.5
== END 2021-09-27 23:59 | disposition home or self-care (01) ==
PROVIDERS: PCP Family Medicine; Referring Provider Specialist; Visit Provider Internal Medicine Medical Oncology
DX: C7A.019 Malignant carcinoid tumor of the small intestine, unspecified portion (principal); C7B.04 Secondary carcinoid tumors of peritoneum; R19.7 Diarrhea, unspecified; C61 Malignant neoplasm of prostate; R97.21 Rising PSA following treatment for malignant neoplasm of prostate; Z79.899 Other long term (current) drug therapy; Z79.818 Long term (current) use of other agents affecting estrogen receptors and estrogen levels
CPT/HCPCS: 96372; 99214; J2353

== ENCOUNTER 2021-10-26 11:27 | Oncology outpatient (recurring) (ONCR) | payer MEDICARE, OTHER, SELFPAY ==
[2021-10-26 12:03] LABS: Basophils # 0.1 10^3/uL (0.0-0.1); Basophils % 0.7 %; Eosinophils # 0.1 10^3/uL (0.0-0.8); Eosinophils % 1.4 %; Hematocrit 34.7 % (42.0-52.0); Hemoglobin 10.6 g/dL (11.7-16.6); Lymphocytes # 1.5 10^3/uL (0.8-4.8); Lymphocytes % 21.4 %; Mean Corpuscular HGB Conc 30.5 g/dL (30.0-36.0); Mean Corpuscular Hemoglobin 31.9 pg (28.0-34.0); Mean Corpuscular Volume 104.5 fl (80-94); Mean Platelet Volume 10.7 fL (7.4-10.4); Monocytes # 0.5 10^3/uL (0.2-0.9); Monocytes % 6.8 %; Neutrophils % 69.4 %; Nucleated Red Blood Cells % 0 %; Platelet Count 169 10^3/cmm (130-400); Red Blood Count 3.32 10^6/uL (4.1-5.3); Red Cell Distribution Width 16.7 % (12.1-15.1); White Blood Count 7.2 10^3/uL (4.0-10.0)
[2021-10-26 12:51] LABS: Alanine Aminotransferase 12 U/L (0-41); Albumin Level 4.1 g/dL (3.5-5.2); Alkaline Phosphatase 142 IU/L (40-130); Anion Gap 16.1 (5-19); Aspartate Amino Transferase 20 U/L (0-40); Blood Urea Nitrogen 21 mg/dL (8-23); Calcium 8.4 mg/dL (8.5-10.5); Carbon Dioxide 18 mmol/L (22-29); Chloride 114 mmol/L (98-107); Ferritin 337 ng/mL (30-400); Globulin 2.6 g/dL (1.3-4.6); Glucose 109 mg/dL (65-115); Iron 70 ug/dL (59-158); Osmolality Calculated 302 mOsm/kg (285-295); Percent Saturation 30.5 % (20-50); Potassium 4.1 mmol/L (3.5-5.1); Prostate Specific Antigen 0.219 ng/mL (0-4); Sodium 144 mmol/L (136-145); Total Bilirubin 0.3 mg/dL (0.15-1.2); Total Iron Binding Capacity 229 mcg/dl; Total Protein 6.7 g/dL (6.6-8.7); Unsaturated Iron Binding 159 ug/dL (112-347)
[2021-10-26] MEDS: octreotide LAR depot 20 mg Kit IM (14:13)
[2021-11-05 12:53] LABS: Chromogranin A LC/MS/MS 1653 ng/mL (ADULTS: <311)
== END 2021-11-17 23:59 | disposition home or self-care (01) ==
PROVIDERS: PCP Family Medicine; Referring Provider Specialist; Visit Provider Internal Medicine Medical Oncology
DX: C61 Malignant neoplasm of prostate; Z79.818 Long term (current) use of other agents affecting estrogen receptors and estrogen levels; C7A.019 Malignant carcinoid tumor of the small intestine, unspecified portion; R97.21 Rising PSA following treatment for malignant neoplasm of prostate; Z90.79 Acquired absence of other genital organ(s); D50.8 Other iron deficiency anemias
CPT/HCPCS: 36415; 80053; 82728; 83540; 83550; 84153; 85025; 86316; 96372; 99214; 99215; J2353

== ENCOUNTER 2021-11-23 13:21 | Oncology outpatient (recurring) (ONCR) | payer MEDICARE, OTHER, SELFPAY ==
[2021-11-23 13:44] VITALS: BP 123/73; PULSE 76; RESP 18; TEMP 37.2; O2SAT 99
[2021-11-23] MEDS: octreotide LAR depot 20 mg Kit IM (13:57)
[2021-11-23 14:05] VITALS: BP 123/76; PULSE 75; RESP 18; TEMP 37; O2SAT 97
== END 2021-12-17 23:59 | disposition home or self-care (01) ==
PROVIDERS: PCP Family Medicine; Referring Provider Specialist; Visit Provider Internal Medicine Medical Oncology
DX: C61 Malignant neoplasm of prostate (principal); Z79.818 Long term (current) use of other agents affecting estrogen receptors and estrogen levels; C7A.019 Malignant carcinoid tumor of the small intestine, unspecified portion; R97.21 Rising PSA following treatment for malignant neoplasm of prostate
CPT/HCPCS: 96372; 96401; J2353

== ENCOUNTER 2021-12-21 10:36 | Oncology outpatient (recurring) (ONCR) | payer MEDICARE, OTHER, SELFPAY ==
[2021-12-21] MEDS: octreotide LAR depot 20 mg Kit IM (11:00)
== END 2022-01-17 23:59 | disposition home or self-care (01) ==
PROVIDERS: PCP Family Medicine; Referring Provider Specialist; Visit Provider Internal Medicine Medical Oncology
DX: C61 Malignant neoplasm of prostate (principal); Z79.818 Long term (current) use of other agents affecting estrogen receptors and estrogen levels; C7A.019 Malignant carcinoid tumor of the small intestine, unspecified portion; R97.21 Rising PSA following treatment for malignant neoplasm of prostate
CPT/HCPCS: 96372; J2353

== ENCOUNTER 2022-01-27 13:30 | Oncology outpatient (recurring) (ONCR) | payer MEDICARE, OTHER, SELFPAY ==
[2022-01-18 11:03] LABS: Basophils % 0.4 %; Eosinophils # 0.2 10^3/uL (0.0-0.8); Eosinophils % 1.7 %; Hematocrit 27.6 % (42.0-52.0); Hemoglobin 8.1 g/dL (11.7-16.6); Lymphocytes # 1.5 10^3/uL (0.8-4.8); Lymphocytes % 15.2 %; Mean Corpuscular HGB Conc 29.3 g/dL (30.0-36.0); Mean Corpuscular Hemoglobin 30.1 pg (28.0-34.0); Mean Corpuscular Volume 102.6 fl (80-94); Mean Platelet Volume 9.7 fL (7.4-10.4); Monocytes # 0.8 10^3/uL (0.2-0.9); Monocytes % 8.2 %; Neutrophils # 7.26 10^3/uL (1.8-7.7); Neutrophils % 74.1 %; Nucleated Red Blood Cells % 0.2 %; Platelet Count 259 10^3/cmm (130-400); Red Blood Count 2.69 10^6/uL (4.1-5.3); Red Cell Distribution Width 15.6 % (12.1-15.1); White Blood Count 9.8 10^3/uL (4.0-10.0)
[2022-01-18 11:23] LABS: Alanine Aminotransferase 10 U/L (0-41); Albumin Level 3.2 g/dL (3.5-5.2); Alkaline Phosphatase 200 U/L (40-130); Anion Gap 15.7 (5-19); Aspartate Amino Transferase 19 U/L (0-40); Blood Urea Nitrogen 35 mg/dL (8-23); Calcium 8.8 mg/dL (8.5-10.5); Carbon Dioxide 14 mmol/L (22-29); Chloride 114 mmol/L (98-107); Glucose 100 mg/dL (65-115); Iron 29 ug/dL (59-158); Osmolality Calculated 296 mOsm/kg (285-295); Percent Saturation 15.7 % (20-50); Potassium 4.7 mmol/L (3.5-5.1); Sodium 139 mmol/L (136-145); Total Bilirubin 0.3 mg/dL (0.15-1.2); Total Iron Binding Capacity 184 mcg/dl; Total Protein 7.2 g/dL (6.6-8.7); Unsaturated Iron Binding 155 ug/dL (112-347)
[2022-01-18] MEDS: octreotide LAR depot 20 mg Kit IM (14:21)
[2022-01-18] MEDS: ferric carboxy (IVPB) 750 MG in sodium chloride 0.9% (100 ml) 100 ML 345 MG IV (14:28)
[2022-01-18 14:37] LABS: Prostate Specific Antigen 0.262 ng/mL (0-4)
[2022-01-18 14:55] VITALS: BP 113/62; PULSE 70; RESP 18; TEMP 36.8; O2SAT 95
[2022-01-19 07:08] LABS: PROTEIN, TOTAL 6.4 g/dL (6.1-8.1)
[2022-01-19 15:23] LABS: KAPPA LIGHT CHAIN, FREE, SERUM 127.5 mg/L (3.3-19.4); KAPPA/LAMBDA LIGHT CHAINS FREE 1.52 (0.26-1.65); LAMBDA LIGHT CHAIN, FREE, SERU 83.8 mg/L (5.7-26.3)
[2022-01-19 15:46] LABS: ALBUMIN 2.9 g/dL (3.8-4.8); ALPHA 1 GLOBULIN 0.6 g/dL (0.2-0.3); ALPHA 2 GLOBULIN 1.1 g/dL (0.5-0.9); BETA 1 GLOBULIN 0.5 g/dL (0.4-0.6); BETA 2 GLOBULIN 0.5 g/dL (0.2-0.5)
[2022-01-27] MEDS: ferric carboxy (IVPB) 750 MG in sodium chloride 0.9% (100 ml) 100 ML 345 MG IV (13:43)
[2022-01-27] MEDS: sodium chloride 0.9% (100 ml) 100 ML 50 ML (13:43)
[2022-01-27 13:58] LABS: Basophils % 0.4 %; Eosinophils # 0.1 10^3/uL (0.0-0.8); Eosinophils % 1.8 %; Hematocrit 30.1 % (42.0-52.0); Hemoglobin 8.9 g/dL (11.7-16.6); Lymphocytes # 1.1 10^3/uL (0.8-4.8); Mean Corpuscular HGB Conc 29.6 g/dL (30.0-36.0); Mean Corpuscular Hemoglobin 30.5 pg (28.0-34.0); Mean Corpuscular Volume 103.1 fl (80-94); Mean Platelet Volume 9.7 fL (7.4-10.4); Monocytes # 0.6 10^3/uL (0.2-0.9); Monocytes % 7.5 %; Neutrophils # 5.95 10^3/uL (1.8-7.7); Neutrophils % 75.4 %; Nucleated Red Blood Cells % 0 %; Platelet Count 227 10^3/cmm (130-400); Red Blood Count 2.92 10^6/uL (4.1-5.3); Red Cell Distribution Width 16.7 % (12.1-15.1); White Blood Count 7.9 10^3/uL (4.0-10.0)
[2022-01-28 11:22] LABS: Serotonin Whole Blood 154 ng/mL (56-244)
[2022-01-28 15:12] LABS: Chromogranin A LC/MS/MS 1750 ng/mL (ADULTS: <311)
[2022-02-03 16:54] LABS: 24 Hour Urine Volume 500 mL
== END 2022-02-16 23:59 | disposition home or self-care (01) ==
PROVIDERS: PCP Family Medicine; Visit Provider Internal Medicine Medical Oncology
DX: C7A.019 Malignant carcinoid tumor of the small intestine, unspecified portion (principal); D64.9 Anemia, unspecified
CPT/HCPCS: 36415; 80053; 83497; 83540; 83550; 83883; 84153; 84155; 84165; 84260; 85025; 86316; 96365; 96372; 96401; 99214; 99215; J1439; J2353